=== PATIENT | female | born 1940 | race Caucasian/White ===

== ENCOUNTER 2019-07-19 14:16 | Outpatient (CLI) | payer MEDICARE, SELFPAY ==
--- NOTE | ~2019-07-19 | DEXA_ITS ---
Bone Density Report Name: Shelly Gaston Age: 79 Sex: Female Ethnicity: White Date of : 1940 Indication: osteopenia; monitoring treatment; height loss; cancer; hysterectomy; Referring Provider: RAI, IFEANYI Study: Bone densitometry was performed. Exam Date: July 19, 2019 Accession number: [id number] Bone Density: Region BMD T-score Z-score Classification AP Spine (L1, L2) 1.080 0.9 3.3 Normal Femoral Neck (Left) 0.634 -1.9 0.2 Osteopenia Total Hip (Left) 0.857 -0.7 1.2 Normal World Health Organization criteria for BMD impression classify patients as: Normal (T-score at or above -1.0), Osteopenia (T-score between -1.0 and -2.5), or Osteoporosis (T-score at or below -2.5). 10-year Fracture Risk: FRAX not reported because: Treated for osteoporosis Previous Exams: Region Exam Age BMD T-score BMD Change BMD Change Date g/cm2 vs Baseline vs Previous AP Spine(L1, L2) 07/19/2019 79 1.080 0.9 0.023(2.2%)* 0.023(2.2%)* 04/21/2017 76 1.057 0.7 Total Hip(Left) 07/19/2019 79 0.857 -0.7 0.049(6.0%)* 0.049(6.0%)* 04/21/2017 76 0.808 -1.1 *Denotes significance at 95% confidence level, LSC for AP Spine = 0.022 g/cm2, LSC for Total Hip = 0.027 g/cm2 Clinical Information Provided by Patient: Is being treated for osteoporosis Has used the following medications: Prolia (i.e. denosumab), Vitamin D Has the following medical conditions: Cancer, Hysterectomy Patient maximum height was 64 Menopause Age: 41 No regular weight bearing exercise Drinks caffeinated beverages Onset of menses at age 14 Number of children 4 Impression: The patient has low bone mass, based on the Left Femoral Neck T-score. No significant bone loss was observed. Discussion: PATIENT UNDER TREATMENT WITH NO SIGNIFICANT BMD LOSS SINCE LAST EXAM. In an untreated patient, BMD typically declines with age. A lack of decline or gain is usually a sign that treatment is efficacious and fracture risk is reduced. It is important to ask patients whether they are taking their medications and to encourage continued and appropriate compliance with their osteoporosis therapies to reduce fracture risk. It is also important to review their risk factors and encourage appropriate calcium and vitamin D intakes, exercise, fall prevention and other lifestyle measures. Follow-Up: Consider a repeat BMD and Vertebral Fracture Assessment (VFA) exam in 2 years or sooner if medically necessary, to reassess this patient's status. Reported by: RINKU on 07/19/2019 2:50:00 PM.
== END 2019-07-19 14:17 | disposition home or self-care (01) ==
LOC: ANHIMG 14:29
PROVIDERS: PCP Nurse Practitioner Family; Visit Provider Nurse Practitioner Family
DX: M81.0 Age-related osteoporosis without current pathological fracture (principal); M85.852 Other specified disorders of bone density and structure, left thigh
CPT/HCPCS: 77080

== ENCOUNTER 2019-08-16 13:10 | Outpatient (CLI) | payer MEDICARE, SELFPAY ==
--- NOTE | ~2019-08-16 | MM_ITS ---
EXAMINATION: MM screen LT diag RT w mary HISTORY: Right breast cancer. Previous lumpectomy with radiation therapy. TECHNIQUE: Additional 3-D tomosynthesis images of the right breast were performed and synthetic 2-D i mages were generated. Screening left mammogram. CAD analysis was submitted and interpreted. COMPARISON: Comparison to multiple prior studies sequentially, with oldest reviewed study dated 07/2017. FINDINGS: Breast composed of scattered areas of fibroglandular density. Architectural distortion note d in the upper outer quadrant, consistent with previous lumpectomy. No suspicious masses or calcifica tions are identified to suggest malignancy. IMPRESSION: 1. No mammographic evidence for malignancy in the right breast. 2. Routine yearly screening mammogram and regular clinical breast examination are recommended. BI-RADS Category 2: Benign finding(s). Reviewed, dictated and finalized at location A. IMPRESSION: 1. No mammographic evidence for malignancy in the right breast. 2. Routine yearly screening mammogram and regular clinical breast examination a re recommended. BI-RADS Category 2: Benign finding(s).
== END 2019-08-16 13:11 | disposition home or self-care (01) ==
LOC: ANHIMG 13:14
PROVIDERS: PCP Nurse Practitioner Family; Visit Provider Nurse Practitioner Family
DX: Z12.31 Encounter for screening mammogram for malignant neoplasm of breast (principal); Z85.3 Personal history of malignant neoplasm of breast
CPT/HCPCS: 77063; 77065; 77067

== ENCOUNTER 2019-10-29 13:25 | Emergency (ER) | payer MEDICARE, SELFPAY ==
--- NOTE | ~2019-10-29 | XR_ITS ---
XR nasal bones min 3V 10/29/2019 14:27 Indication: Epistaxis. Procedure: 3 views of the nasal bones Comparison: No prior studies for comparison. Findings: No fracture or traumatic malalignment. There is mild rightward nasal septal mediation. Para nasal sinuses and orbits are unremarkable. Impression: 1: No acute abnormality of the nasal bones. Reviewed, dictated and finalized at location A. Impression: 1: No acute abnormality of the nasal bones.
[2019-10-29 13:28] VITALS: BP 125/79; PULSE 68; RESP 16; TEMP 36.3; O2SAT 100
--- NOTE | 2019-10-29 13:55 | ED.EPISTAXIS ---
HPI - Epistaxis General Chief complaint: Epistaxis Stated complaint: nosebleeds Time Seen by Provider: 10/29/19 13:35 Source: patient and family Mode of arrival: ambulatory Limitations: no limitations History of Present Illness HPI Narrative: Shelly Gaston is a 79 yo femal with a PMH of seasonal allergies, breast cancer, osteoporosis, hypothyroid , who comes to express care with a severe nosebleed that started about half hour prior to arrival at express care however this is the sixth small nosebleed she has had the last 24 hours this morning she had a nosebleed that lasted for about 10 minutes before it stopped. Patient has had history of breast cancer and is on tamoxifen as well as Prolia for osteoporosis but her blood work was checked both in February and in August or September of this year. Presentation she had trickling of blood from her nose but while in triage coughed up a large blood clot from her posterior pharynx. Nose clip was placed Related Data Home Medications Medication Instructions Recorded Confirmed denosumab [Prolia] 60 mg SUBCUT [id number] 10/29/19 10/29/19 levothyroxine [Synthroid] 137 mcg PO DAILY 10/29/19 10/29/19 tamoxifen 20 mg PO DAILY 10/29/19 10/29/19 Allergies Allergy/AdvReac Type Severity Reaction Status Date / Time morphine Allergy Unknown Chest Pain Verified 10/29/19 13:28 Penicillins Allergy Unknown Other Verified 10/29/19 13:28 Sulfa (Sulfonamide Allergy Rash Verified 10/29/19 13:28 Antibiotics) Review of Systems Review of Systems: Narrative: CONSTITUTIONAL: Denies fever, chills, sweats. EYES: Denies visual changes, redness, discharge. ENT: Denies rhinorrhea, congestion, sore throat, otalgia. Nosebleed-20 had been bending over to cut calderon the one that brought her to express care with spontaneous CARDIOVASCULAR: Denies chest pain, palpitations, edema. RESPIRATORY: Denies dyspnea, wheezing, cough GASTROINTESTINAL: Denies abdominal pain, nausea, vomiting, diarrhea. GENITOURINARY: Denies dysuria, hematuria, abnormal discharge SKIN: Denies rash or itching. NEUROLOGIC: Denies numbness, or focal weakness. PSYCHIATRIC: Denies anxiety or depression. [facility] Past Medical History Medical History (Updated 10/29/19 @ 14:12 by Luz Elena Avery CNP) Breast cancer Hypothyroid Osteoporosis Surgical History Surgical History (Updated 10/29/19 @ 14:02 by Luz Elena Avery CNP) H/O arthroplasty H/O: hysterectomy History of appendectomy History of cholecystectomy Family History Family History Mother Patient's mother is , Onset Age: 93 Grandparent Cerebrovascular accident, Onset Age: 89 Family history of malignant neoplasm Family history of chronic obstructive pulmonary disease, Onset Age: 90 Social History Social History Smoking status: Former smoker Smoking end date: 02/16/99 Alcohol intake: current Comments At time of signature, I agree with nursing past medical, surgical, social and family history. There is no relevant family history pertinent to the presenting complaint. Exam Narrative: Exam Narrative: GENERAL: This is a well-nourished, well-developed patient, in mild distress. Patient appears healthy able to ambulate without difficulty, not pale HEAD: normocephalic, atraumatic. EYES: Sclera clear/white. Vision is grossly intact. EARS: External ears normal, . Hearing grossly intact. NOSE: External nose normal with red blood draining from nose, exam appears to be left nostril over right nostril although patient states was both this morning THROAT: Mucous membranes moist, posterior pharynx patent NECK: Neck supple, CARDIOVASCULAR: Regular rate and rhythm without murmurs, gallops, or rubs. RESPIRATORY: Clear to auscultation. Breath sounds equal bilaterally. No wheezes, rales, or rhonchi. GASTROINTESTINAL: Abdomen soft, SKIN: warm, intact with no suspicious lesions or rash, good textu
[2019-10-29 13:58] VITALS: BP 161/61
[2019-10-29 14:10] VITALS: BP 133/75
== END 2019-10-29 14:40 | disposition home or self-care (01) ==
PROVIDERS: Emergency Provider Nurse Practitioner; PCP Nurse Practitioner Family
DX: R04.0 Epistaxis (principal); Z87.891 Personal history of nicotine dependence; E03.9 Hypothyroidism, unspecified; M81.0 Age-related osteoporosis without current pathological fracture; Z85.3 Personal history of malignant neoplasm of breast
CPT/HCPCS: 30901; 70160; 99213; G0463

== ENCOUNTER 2019-10-29 19:52 | Emergency (ER) | payer MEDICARE, SELFPAY ==
[2019-10-29 19:55] VITALS: BP 164/78; PULSE 66; RESP 20; TEMP 36.2; O2SAT 98
--- NOTE | 2019-10-29 20:36 | ED.EPISTAXIS ---
HPI - Epistaxis General Chief complaint: Epistaxis Stated complaint: nose swelling and pain, Time Seen by Provider: 10/29/19 20:02 Source: patient Mode of arrival: ambulatory Limitations: no limitations History of Present Illness HPI Narrative: This is a 79 year old female that presents to the ER for nasal pain. Reports she has had intermittent nosebleeds over the last week. Reports today she had one she was unable to control so she went to the urgent care. Reports they placed a Rhino Rocket. Reports it is uncomfortable. The tape is covering her right nare as well. Denies fever or continued bleeding. Related Data Home Medications Medication Instructions Recorded Confirmed denosumab [Prolia] 60 mg SUBCUT [id number] 10/29/19 10/29/19 levothyroxine [Synthroid] 137 mcg PO DAILY 10/29/19 10/29/19 tamoxifen 20 mg PO DAILY 10/29/19 10/29/19 Allergies Allergy/AdvReac Type Severity Reaction Status Date / Time morphine Allergy Unknown Chest Pain Verified 10/29/19 13:28 Penicillins Allergy Unknown Other Verified 10/29/19 13:28 Sulfa (Sulfonamide Allergy Rash Verified 10/29/19 13:28 Antibiotics) Review of Systems Review of Systems: Narrative: CONSTITUTIONAL: Denies fever ENT: Denies current epistaxis All systems reviewed & are unremarkable except as noted in HPI and below PMFSH Past Medical History Medical History (Updated 10/29/19 @ 20:45 by Julissa Peters PA-C) Breast cancer Hypothyroid Osteoporosis Surgical History Surgical History (Updated 10/29/19 @ 14:02 by Luz Elena Avery CNP) H/O arthroplasty H/O: hysterectomy History of appendectomy History of cholecystectomy Social History Social History Smoking status: Former smoker Smoking end date: 02/16/99 Alcohol intake: current Exam Narrative: Exam Narrative: GENERAL: Well-appearing, well-nourished, and in no acute distress. HEAD: Normocephalic, atraumatic. EYES: EOMI. ENT: No active epistaxis. Rhino rocket in place in the left nare. Mucous membranes moist. No bleeding noted in the oropharynx NECK: Supple. No adenopathy or masses. EXTREMITIES: Normal range of motion. No edema. SKIN: Warm, dry, no rash. NEURO: No focal deficits. Alert and oriented x3. PSYCH: Normal mood and affect Course Vital Signs Vital signs: Vital Signs Temperature 97.2 F L 10/29/19 19:55 Pulse Rate 66 10/29/19 19:55 Respiratory Rate 20 10/29/19 19:55 Blood Pressure 164/78 H 10/29/19 19:55 Pulse Oximetry 98 10/29/19 19:55 Temperature 97.2 F L 10/29/19 19:55 Pulse Rate 66 10/29/19 19:55 Respiratory Rate 20 10/29/19 19:55 Blood Pressure 164/78 H 10/29/19 19:55 Pulse Oximetry 98 10/29/19 19:55 MDM - Epistaxis MDM Narrative Medical decision making narrative: Patient presents the emergency department for discomfort of Rhino Rocket that had been placed at urgent care. I removed 1 cc of air from the Rhino Rocket with improvement in her pain. I also fixed the taping so it was not covering her other nare. Patient will be started on oral antibiotics. She reports she does not need any pain medication for home. Spoke with Dr. Gil about patient and work-up will follow-up in clinic. Patient is stable and felt appropriate further outpatient evaluation. She was given warnings to return to the ER Critical Care Time Critical Care Time Critical Care Time: No Discharge Plan Discharge Clinical Impression: Epistaxis Patient Disposition: Home, Self-Care Condition: Stable Instructions: Antibiotic Form, Nosebleed (ED) Additional Instructions: Return to the emergency department if you experience fever, nosebleed you are unable to control, or any other symptoms that are concerning to you Take antibiotics as prescribed. Tylenol or ibuprofen as needed for pain Follow-up with ENT. Call first thing Thursday morning to make an appointment Prescriptions: New clindamycin HCl 150 mg capsule 450 mg PO Q8H 3 Days Qty: 27 R
[2019-10-29] MEDS: CLINDAMYCIN HCL 150 MG CAP 450 MG PO (21:00)
[2019-10-29 21:04] VITALS: PULSE 60; RESP 14
== END 2019-10-29 21:05 | disposition home or self-care (01) ==
PROVIDERS: Emergency Provider Emergency Medicine; PCP Nurse Practitioner Family
DX: R04.0 Epistaxis (principal); Z87.891 Personal history of nicotine dependence; E03.9 Hypothyroidism, unspecified; M81.0 Age-related osteoporosis without current pathological fracture; Z85.3 Personal history of malignant neoplasm of breast
CPT/HCPCS: 70160; 99283; A9270

== ENCOUNTER 2020-08-07 16:25 | Outpatient (CLI) | payer MEDICARE, SELFPAY ==
--- NOTE | ~2020-08-07 | MM_ITS ---
EXAMINATION: MM screening bean BI w mary HISTORY: Screening mammogram TECHNIQUE: Craniocaudal and mediolateral oblique 3-D tomosynthesis images were obtained and synthetic 2-D images were generated. CAD analysis was submitted and interpreted. COMPARISON: 08/16/2019 left screening and right diagnostic mammogram 06/15/2018 diagnostic right digital mammogram 05/31/2018 bilateral digital screening mammogram 07/02/2017 diagnostic left digital mammogram 05/05/2017 diagnostic left mammogram and limited left breast ultrasound 04/21/2017 bilateral digital screening mammogram BREAST PARENCHYMAL COMPOSITION: There are scattered areas of fibroglandular density. FINDINGS: Stable mild fibroglandular asymmetry since 04/21/2017. There is no evidence of suspicious mas s, calcification, or architectural distortion to suggest malignancy in either breast. There has been no suspicious interval change. IMPRESSION: 1. No mammographic evidence of malignancy. 2. Recommend routine screening mammography in one year. BI-RADS Category 2: Benign finding(s). Reviewed, dictated and finalized at location A.
== END 2020-08-07 16:26 | disposition home or self-care (01) ==
LOC: ANHIMG 16:30
PROVIDERS: PCP Nurse Practitioner Family; Visit Provider Nurse Practitioner Family
DX: Z12.31 Encounter for screening mammogram for malignant neoplasm of breast (principal)
CPT/HCPCS: 77063; 77067

== ENCOUNTER 2020-09-25 11:54 | Outpatient (CLI) | payer MEDICARE, SELFPAY ==
[2020-09-25 12:15] LABS: Basophils Percent Auto 0.4 % (0.2-1.2); Eosinophils Absolute Auto 0.3 K/mm3 (0-0.3); Eosinophils Percent Auto 3.8 % (0-4.4); Hematocrit 41.6 % (37.0-47.0); Hemoglobin 13.4 g/dL (12.0-15.0); Immature Granulocyte Absolute 0.01 K/mm3 (0.00-0.031); Immature Granulocyte Percent A 0.1 % (0-0.5); Lymphocytes Absolute Auto 2.21 K/mm3 (0.9-3.2); Lymphocytes Percent Auto 30.8 % (18.3-44.2); Mean Corpuscular HGB Conc 32.2 g/dl (32-36); Mean Corpuscular Hemoglobin 28.8 pg (26-34); Mean Corpuscular Volume 89.5 fl (80-100); Mean Platelet Volume 10.5 fl (7.4-10.4); Monocytes Absolute Auto 0.6 K/mm3 (0.1-0.6); Monocytes Percent Auto 7.7 % (2.6-8.5); Neutrophils Absolute Auto 4.1 K/mm3 (1.3-6.7); Neutrophils Percent Auto 57.2 % (45.5-73.1); Platelet Count Result 261 k/mm3 (150-375); Red Blood Count 4.65 M/mm3 (4.2-5.4); Red Cell Distribution Width 12.8 % (11.5-14.5); White Blood Count 7.2 K/mm3 (4.5-10.0)
[2020-09-25 16:38] LABS: Alanine Aminotransferase 13 U/L (4-35); Albumin Level 4.2 g/dL (3.5-5.1); Alkaline Phosphatase 40 U/L (38-126); Anion Gap 6 mmol/L (8-16); Aspartate Amino Transferase 25 U/L (14-36); Bilirubin,Total 0.7 mg/dL (0.2-1.3); Blood Urea Nitrogen 14 mg/dL (7-17); Carbon Dioxide 26 mmol/L (22-30); Chloride 105 mmol/L (98-107); Estimated Glomerular Filt Rate > 60; Glucose 85 mg/dL (65-110); Potassium 4.7 mmol/L (3.4-5.0); Sodium 137 mmol/L (137-145)
[2020-09-28 06:32] LABS: CA 15-3 10 U/mL (<32)
== END 2020-09-25 11:55 | disposition home or self-care (01) ==
LOC: ANHLAB 12:03
PROVIDERS: PCP Nurse Practitioner Family; Visit Provider Internal Medicine Hematology & Oncology
DX: C50.911 Malignant neoplasm of unspecified site of right female breast (principal); Z17.0 Estrogen receptor positive status [ER+]
CPT/HCPCS: 36415; 80053; 85025; 86300

== ENCOUNTER 2021-04-19 08:16 | Outpatient (CLI) | payer MEDICARE, SELFPAY ==
[2021-04-19 09:03] LABS: Basophils Percent Auto 0.6 % (0.2-1.2); Eosinophils Absolute Auto 0.3 K/mm3 (0-0.3); Eosinophils Percent Auto 5.4 % (0-4.4); Hematocrit 42.1 % (37.0-47.0); Immature Granulocyte Absolute 0.01 K/mm3 (0.00-0.031); Immature Granulocyte Percent A 0.2 % (0-0.5); Lymphocytes Absolute Auto 1.71 K/mm3 (0.9-3.2); Lymphocytes Percent Auto 27.8 % (18.3-44.2); Mean Corpuscular HGB Conc 30.9 g/dl (32-36); Mean Corpuscular Hemoglobin 28.9 pg (26-34); Mean Corpuscular Volume 93.6 fl (80-100); Mean Platelet Volume 10.7 fl (7.4-10.4); Monocytes Absolute Auto 0.5 K/mm3 (0.1-0.6); Monocytes Percent Auto 8.1 % (2.6-8.5); Neutrophils Absolute Auto 3.6 K/mm3 (1.3-6.7); Neutrophils Percent Auto 57.9 % (45.5-73.1); Platelet Count Result 244 k/mm3 (150-375); Red Cell Distribution Width 13.2 % (11.5-14.5); White Blood Count 6.2 K/mm3 (4.5-10.0)
[2021-04-19 13:46] LABS: Alanine Aminotransferase 11 U/L (4-35); Albumin Level 4.1 g/dL (3.5-5.1); Alkaline Phosphatase 42 U/L (38-126); Anion Gap 3 mmol/L (8-16); Aspartate Amino Transferase 24 U/L (14-36); Bilirubin,Total 0.6 mg/dL (0.2-1.3); Blood Urea Nitrogen 13 mg/dL (7-17); Carbon Dioxide 30 mmol/L (22-30); Chloride 103 mmol/L (98-107); Estimated Glomerular Filt Rate > 60; Glucose 92 mg/dL (65-110); Potassium 4.5 mmol/L (3.4-5.0); Sodium 136 mmol/L (137-145)
[2021-04-23 20:23] LABS: CA 15-3 12 U/mL (<32)
== END 2021-04-19 08:17 | disposition home or self-care (01) ==
LOC: ANHLAB 08:19
PROVIDERS: PCP Nurse Practitioner Family; Visit Provider Internal Medicine Hematology & Oncology
DX: C50.911 Malignant neoplasm of unspecified site of right female breast (principal); Z17.0 Estrogen receptor positive status [ER+]
CPT/HCPCS: 36415; 80053; 85025; 86300

== ENCOUNTER 2021-09-04 12:36 | Outpatient (CLI) | payer MEDICARE, SELFPAY ==
[2021-09-04 12:55] LABS: Basophils Percent Auto 0.6 % (0.2-1.2); Eosinophils Absolute Auto 0.4 K/mm3 (0-0.3); Eosinophils Percent Auto 5.3 % (0-4.4); Hematocrit 40.2 % (37.0-47.0); Hemoglobin 12.8 g/dL (12.0-15.0); Immature Granulocyte Absolute 0.01 K/mm3 (0.00-0.031); Immature Granulocyte Percent A 0.1 % (0-0.5); Lymphocytes Percent Auto 33.2 % (18.3-44.2); Mean Corpuscular HGB Conc 31.8 g/dl (32-36); Mean Corpuscular Hemoglobin 28.8 pg (26-34); Mean Corpuscular Volume 90.5 fl (80-100); Mean Platelet Volume 10.4 fl (7.4-10.4); Monocytes Absolute Auto 0.7 K/mm3 (0.1-0.6); Monocytes Percent Auto 9.4 % (2.6-8.5); Neutrophils Absolute Auto 3.6 K/mm3 (1.3-6.7); Neutrophils Percent Auto 51.4 % (45.5-73.1); Platelet Count Result 240 k/mm3 (150-375); Red Blood Count 4.44 M/mm3 (4.2-5.4); Red Cell Distribution Width 12.9 % (11.5-14.5); White Blood Count 6.9 K/mm3 (4.5-10.0)
[2021-09-04 12:58] LABS: Blood Urea Nitrogen 15 mg/dL (8-26); Carbon Dioxide 26 mmol/L (22-30); Chloride 102 mmol/L (98-109); Estimated Glomerular Filt Rate 60; Glucose 91 mg/dL (70-105); Ionized Calcium (POC) 1.22 mmol/L (1.11-1.31); Potassium 4.5 mmol/L (3.5-4.9); Sodium 139 mmol/L (138-146)
[2021-09-04 13:27] LABS: Alanine Aminotransferase 11 U/L (6-35); Alkaline Phosphatase 45 U/L (38-126); Anion Gap 5 mmol/L (8-16); Aspartate Amino Transferase 26 U/L (14-36); Bilirubin,Total 0.6 mg/dL (0.2-1.3); Blood Urea Nitrogen 15 mg/dL (7-17); Calcium 9.2 mg/dL (8.4-10.2); Carbon Dioxide 28 mmol/L (22-30); Chloride 104 mmol/L (98-107); Estimated Glomerular Filt Rate 60; Glucose 91 mg/dL (65-110); Potassium 4.6 mmol/L (3.4-5.0); Sodium 137 mmol/L (137-145)
== END 2021-09-04 12:37 | disposition home or self-care (01) ==
LOC: ANHLAB 12:38
PROVIDERS: PCP Nurse Practitioner Family; Visit Provider Internal Medicine Hematology & Oncology
DX: C50.911 Malignant neoplasm of unspecified site of right female breast (principal); Z17.0 Estrogen receptor positive status [ER+]
CPT/HCPCS: 36415; 80047; 80053; 85025

== ENCOUNTER 2021-09-20 09:27 | Outpatient (CLI) | payer MEDICARE, SELFPAY ==
--- NOTE | ~2021-09-20 | MM_ITS ---
EXAMINATION: MM screening bean BI w mary HISTORY: Screening TECHNIQUE: Craniocaudal and mediolateral oblique 3-D tomosynthesis images were obtained and synthetic 2-D images were generated. CAD analysis was submitted and interpreted. COMPARISON: Comparison to multiple prior studies sequentially, with oldest reviewed study dated 05/31. BREAST PARENCHYMAL COMPOSITION: There are scattered areas of fibroglandular density. FINDINGS: There is no evidence of suspicious mass, calcification, or architectural distortion to sugg est malignancy in either breast. There has been no suspicious interval change. IMPRESSION: 1. No mammographic evidence of malignancy. 2. Recommend routine screening mammography in one year. BI-RADS Category 1: Negative Reviewed, dictated and finalized at location A.
== END 2021-09-20 09:28 | disposition home or self-care (01) ==
LOC: ANHIMG 09:28
PROVIDERS: PCP Nurse Practitioner Family; Visit Provider Internal Medicine Hematology & Oncology
DX: Z12.31 Encounter for screening mammogram for malignant neoplasm of breast (principal)
CPT/HCPCS: 77063; 77067

== ENCOUNTER 2022-02-21 08:49 | Outpatient (CLI) | payer MEDICARE, SELFPAY ==
[2022-02-21 09:04] LABS: Basophils Absolute Auto 0.1 K/mm3 (0.0-0.1); Basophils Percent Auto 0.7 % (0.2-1.2); Eosinophils Absolute Auto 0.3 K/mm3 (0-0.3); Eosinophils Percent Auto 4.2 % (0-4.4); Hematocrit 42.1 % (37.0-47.0); Hemoglobin 13.6 g/dL (12.0-15.0); Immature Granulocyte Absolute 0.02 K/mm3 (0.00-0.031); Immature Granulocyte Percent A 0.3 % (0-0.5); Lymphocytes Absolute Auto 1.96 K/mm3 (0.9-3.2); Lymphocytes Percent Auto 27.6 % (18.3-44.2); Mean Corpuscular HGB Conc 32.3 g/dl (32-36); Mean Corpuscular Hemoglobin 28.9 pg (26-34); Mean Corpuscular Volume 89.6 fl (80-100); Mean Platelet Volume 10.2 fl (7.4-10.4); Monocytes Absolute Auto 0.7 K/mm3 (0.1-0.6); Monocytes Percent Auto 9.1 % (2.6-8.5); Neutrophils Absolute Auto 4.1 K/mm3 (1.3-6.7); Neutrophils Percent Auto 58.1 % (45.5-73.1); Platelet Count Result 260 k/mm3 (150-375); Red Cell Distribution Width 13.2 % (11.5-14.5); White Blood Count 7.1 K/mm3 (4.5-10.0)
[2022-02-21 10:06] LABS: Alanine Aminotransferase 15 U/L (6-35); Albumin Level 4.2 g/dL (3.5-5.1); Alkaline Phosphatase 46 U/L (38-126); Anion Gap 5 mmol/L (8-16); Aspartate Amino Transferase 23 U/L (14-36); Bilirubin,Total 0.6 mg/dL (0.2-1.3); Blood Urea Nitrogen 17 mg/dL (7-17); Carbon Dioxide 29 mmol/L (22-30); Chloride 103 mmol/L (98-107); Estimated Glomerular Filt Rate 53; Glucose 95 mg/dL (65-110); Potassium 4.7 mmol/L (3.4-5.0); Sodium 137 mmol/L (137-145)
[2022-02-26 15:38] LABS: CA 15-3 14 U/mL (<32)
== END 2022-02-21 08:50 | disposition home or self-care (01) ==
LOC: ANHLAB 08:51
PROVIDERS: PCP Nurse Practitioner Family; Visit Provider Internal Medicine Hematology & Oncology
DX: C50.911 Malignant neoplasm of unspecified site of right female breast (principal); Z17.0 Estrogen receptor positive status [ER+]
CPT/HCPCS: 36415; 80053; 85025; 86300

== ENCOUNTER 2022-10-06 09:18 | Outpatient (CLI) | payer MEDICARE, SELFPAY ==
--- NOTE | ~2022-10-06 | MM_ITS ---
EXAMINATION: MM screening bean BI w mary HISTORY: Screening mammogram TECHNIQUE: Craniocaudal and mediolateral oblique 3-D tomosynthesis images were obtained and synthetic 2-D images were generated. CAD analysis was submitted and interpreted. COMPARISON: 09/20/2021, 08/07/2020 bilateral screening mammogram examinations BREAST PARENCHYMAL COMPOSITION: There are scattered areas of fibroglandular density. FINDINGS: There is no evidence of suspicious mass, calcification, or architectural distortion to sugg est malignancy in either breast. There has been no suspicious interval change. IMPRESSION: 1. No mammographic evidence of malignancy. 2. Recommend routine screening mammography in one year. BI-RADS Category 1: Negative Reviewed, dictated and finalized at location A.
== END 2022-10-06 09:19 | disposition home or self-care (01) ==
PROVIDERS: PCP Nurse Practitioner Family; Visit Provider Internal Medicine Hematology & Oncology
DX: Z12.31 Encounter for screening mammogram for malignant neoplasm of breast (principal)
CPT/HCPCS: 36415; 77063; 77067; 80053; 85025; 86300

== ENCOUNTER 2022-10-06 09:54 | Outpatient (CLI) | payer MEDICARE, SELFPAY ==
[2022-10-06 10:15] LABS: Basophils Percent Auto 0.4 % (0.2-1.2); Eosinophils Absolute Auto 0.3 K/mm3 (0-0.3); Hematocrit 44.3 % (37.0-47.0); Hemoglobin 14.4 g/dL (12.0-15.0); Immature Granulocyte Absolute 0.01 K/mm3 (0.00-0.031); Immature Granulocyte Percent A 0.1 % (0-0.5); Lymphocytes Absolute Auto 2.11 K/mm3 (0.9-3.2); Lymphocytes Percent Auto 31.6 % (18.3-44.2); Mean Corpuscular HGB Conc 32.5 g/dl (32-36); Mean Corpuscular Hemoglobin 29.3 pg (26-34); Mean Platelet Volume 10.2 fl (7.4-10.4); Monocytes Absolute Auto 0.5 K/mm3 (0.1-0.6); Monocytes Percent Auto 8.1 % (2.6-8.5); Neutrophils Absolute Auto 3.7 K/mm3 (1.3-6.7); Neutrophils Percent Auto 55.8 % (45.5-73.1); Platelet Count Result 274 k/mm3 (150-375); Red Blood Count 4.92 M/mm3 (4.2-5.4); Red Cell Distribution Width 13.1 % (11.5-14.5); White Blood Count 6.7 K/mm3 (4.5-10.0)
[2022-10-06 11:38] LABS: Anion Gap 4 mmol/L (8-16); Blood Urea Nitrogen 11 mg/dL (7-17); Carbon Dioxide 30 mmol/L (22-30); Chloride 103 mmol/L (98-107); Potassium 4.4 mmol/L (3.4-5.0); Sodium 137 mmol/L (137-145)
[2022-10-06 11:39] LABS: Alanine Aminotransferase 16 U/L (6-35); Albumin Level 4.3 g/dL (3.5-5.1); Alkaline Phosphatase 45 U/L (38-126); Aspartate Amino Transferase 26 U/L (14-36); Bilirubin,Total 0.6 mg/dL (0.2-1.3); Calcium 9.3 mg/dL (8.4-10.2); Estimated Glomerular Filt Rate 60; Glucose 99 mg/dL (65-110)
[2022-10-09 05:22] LABS: CA 15-3 12 U/mL (<32)
== END 2022-10-06 09:55 | disposition home or self-care (01) ==
LOC: ANHLAB 09:56
PROVIDERS: PCP Nurse Practitioner Family; Visit Provider Internal Medicine Hematology & Oncology
DX: C50.911 Malignant neoplasm of unspecified site of right female breast (principal); Z17.0 Estrogen receptor positive status [ER+]
CPT/HCPCS: 36415; 80053; 85025; 86300

== ENCOUNTER 2023-01-22 09:15 | Outpatient (CLI) | payer MEDICARE, SELFPAY ==
[2023-01-22 09:37] LABS: Basophils Percent Auto 0.5 % (0.2-1.2); Eosinophils Absolute Auto 0.4 K/mm3 (0-0.3); Eosinophils Percent Auto 4.8 % (0-4.4); Hematocrit 40.2 % (37.0-47.0); Immature Granulocyte Absolute 0.05 K/mm3 (0.00-0.031); Immature Granulocyte Percent A 0.6 % (0-0.5); Lymphocytes Absolute Auto 1.79 K/mm3 (0.9-3.2); Lymphocytes Percent Auto 21.3 % (18.3-44.2); Mean Corpuscular HGB Conc 32.3 g/dl (32-36); Mean Corpuscular Hemoglobin 29.1 pg (26-34); Mean Corpuscular Volume 90.1 fl (80-100); Mean Platelet Volume 9.9 fl (7.4-10.4); Monocytes Absolute Auto 0.6 K/mm3 (0.1-0.6); Monocytes Percent Auto 7.5 % (2.6-8.5); Neutrophils Absolute Auto 5.5 K/mm3 (1.3-6.7); Neutrophils Percent Auto 65.3 % (45.5-73.1); Platelet Count Result 311 k/mm3 (150-375); Red Blood Count 4.46 M/mm3 (4.2-5.4); Red Cell Distribution Width 13.4 % (11.5-14.5); White Blood Count 8.4 K/mm3 (4.5-10.0)
[2023-01-22 10:36] LABS: Alanine Aminotransferase 12 U/L (6-35); Alkaline Phosphatase 50 U/L (38-126); Anion Gap 5 mmol/L (8-16); Aspartate Amino Transferase 28 U/L (14-36); Bilirubin,Total 0.6 mg/dL (0.2-1.3); Blood Urea Nitrogen 17 mg/dL (7-17); Calcium 9.3 mg/dL (8.4-10.2); Carbon Dioxide 29 mmol/L (22-30); Chloride 105 mmol/L (98-107); Estimated Glomerular Filt Rate 60; Glucose 87 mg/dL (65-110); Potassium 4.4 mmol/L (3.4-5.0); Sodium 139 mmol/L (137-145)
[2023-01-22 11:42] LABS: Folic Acid 17.7 ng/mL (2.76->20)
[2023-01-22 11:57] LABS: Free T4 Free Thyroxine 1.86 ng/mL (0.78-2.19)
== END 2023-01-22 09:16 | disposition home or self-care (01) ==
LOC: ANHLAB 09:19
PROVIDERS: PCP Nurse Practitioner Family; Visit Provider Internal Medicine Hematology & Oncology
DX: E03.4 Atrophy of thyroid (acquired) (principal); Z86.000 Personal history of in-situ neoplasm of breast; E53.8 Deficiency of other specified B group vitamins
CPT/HCPCS: 36415; 80053; 82746; 84439; 84443; 85025

== ENCOUNTER 2023-05-06 08:32 | Outpatient (CLI) | payer MEDICARE, SELFPAY ==
[2023-05-06 09:04] LABS: Basophils Absolute Auto 0.1 K/mm3 (0.0-0.1); Basophils Percent Auto 0.6 % (0.2-1.2); Eosinophils Absolute Auto 0.4 K/mm3 (0-0.3); Eosinophils Percent Auto 4.8 % (0-4.4); Hematocrit 43.6 % (37.0-47.0); Hemoglobin 13.9 g/dL (12.0-15.0); Immature Granulocyte Absolute 0.02 K/mm3 (0.00-0.031); Immature Granulocyte Percent A 0.2 % (0-0.5); Lymphocytes Percent Auto 19.9 % (18.3-44.2); Mean Corpuscular HGB Conc 31.9 g/dl (32-36); Mean Corpuscular Hemoglobin 28.7 pg (26-34); Mean Corpuscular Volume 90.1 fl (80-100); Mean Platelet Volume 9.9 fl (7.4-10.4); Monocytes Absolute Auto 0.8 K/mm3 (0.1-0.6); Monocytes Percent Auto 8.6 % (2.6-8.5); Neutrophils Percent Auto 65.9 % (45.5-73.1); Platelet Count Result 314 k/mm3 (150-375); Red Blood Count 4.84 M/mm3 (4.2-5.4); Red Cell Distribution Width 13.3 % (11.5-14.5); White Blood Count 9.1 K/mm3 (4.5-10.0)
[2023-05-06 10:41] LABS: Alanine Aminotransferase 13 U/L (6-35); Albumin Level 4.2 g/dL (3.5-5.1); Alkaline Phosphatase 55 U/L (38-126); Anion Gap 4 mmol/L (8-16); Aspartate Amino Transferase 26 U/L (14-36); Bilirubin,Total 0.6 mg/dL (0.2-1.3); Blood Urea Nitrogen 16 mg/dL (7-17); Calcium 9.5 mg/dL (8.4-10.2); Carbon Dioxide 30 mmol/L (22-30); Chloride 104 mmol/L (98-107); Estimated Glomerular Filt Rate 60; Glucose 95 mg/dL (65-110); Potassium 4.5 mmol/L (3.4-5.0); Sodium 138 mmol/L (137-145)
== END 2023-05-06 08:33 | disposition home or self-care (01) ==
LOC: ANHLAB 08:47
PROVIDERS: PCP Nurse Practitioner Family; Visit Provider Internal Medicine Hematology & Oncology
DX: C50.911 Malignant neoplasm of unspecified site of right female breast (principal); Z17.0 Estrogen receptor positive status [ER+]
CPT/HCPCS: 36415; 80053; 85025

== ENCOUNTER 2023-07-24 08:04 | Outpatient (CLI) | payer MEDICARE, SELFPAY ==
[2023-07-24 08:35] LABS: Basophils Percent Auto 0.6 % (0.2-1.2); Eosinophils Absolute Auto 0.4 K/mm3 (0-0.3); Eosinophils Percent Auto 4.9 % (0-4.4); Hematocrit 43.1 % (37.0-47.0); Hemoglobin 13.8 g/dL (12.0-15.0); Immature Granulocyte Absolute 0.02 K/mm3 (0.00-0.031); Immature Granulocyte Percent A 0.3 % (0-0.5); Lymphocytes Absolute Auto 1.73 K/mm3 (0.9-3.2); Lymphocytes Percent Auto 24.2 % (18.3-44.2); Mean Corpuscular Hemoglobin 28.8 pg (26-34); Mean Corpuscular Volume 89.8 fl (80-100); Mean Platelet Volume 10.2 fl (7.4-10.4); Monocytes Absolute Auto 0.6 K/mm3 (0.1-0.6); Monocytes Percent Auto 8.8 % (2.6-8.5); Neutrophils Absolute Auto 4.4 K/mm3 (1.3-6.7); Neutrophils Percent Auto 61.2 % (45.5-73.1); Platelet Count Result 280 k/mm3 (150-375); Red Cell Distribution Width 13.3 % (11.5-14.5); White Blood Count 7.2 K/mm3 (4.5-10.0)
[2023-07-24 09:00] LABS: Alanine Aminotransferase 11 U/L (6-35); Albumin Level 4.2 g/dL (3.5-5.1); Alkaline Phosphatase 49 U/L (38-126); Anion Gap 6 mmol/L (4-12); Aspartate Amino Transferase 30 U/L (14-36); Bilirubin,Total 0.9 mg/dL (0.2-1.3); Blood Urea Nitrogen 16 mg/dL (7-17); Calcium 9.1 mg/dL (8.4-10.2); Carbon Dioxide 26 mmol/L (22-30); Chloride 105 mmol/L (98-107); Estimated Glomerular Filt Rate > 60; Glucose 99 mg/dL (65-110); Potassium 4.4 mmol/L (3.4-5.0); Sodium 137 mmol/L (137-145)
== END 2023-07-24 08:05 | disposition home or self-care (01) ==
PROVIDERS: PCP Nurse Practitioner Family; Visit Provider Internal Medicine Hematology & Oncology
DX: C50.911 Malignant neoplasm of unspecified site of right female breast (principal); Z17.0 Estrogen receptor positive status [ER+]; E03.9 Hypothyroidism, unspecified
CPT/HCPCS: 36415; 80053; 84443; 85025

== ENCOUNTER 2023-10-08 14:48 | Outpatient (CLI) | payer MEDICARE, SELFPAY ==
--- NOTE | ~2023-10-08 | MM_ITS ---
EXAMINATION: MM screening [facility] BI w mary HISTORY: Screening TECHNIQUE: Craniocaudal and mediolateral oblique 3-D tomosynthesis images were obtained and synthetic 2-D images were generated. CAD analysis was submitted and interpreted. COMPARISON: Comparison to multiple prior studies sequentially, with oldest reviewed study dated 05/31. BREAST PARENCHYMAL COMPOSITION: Not dense: There are scattered areas of fibroglandular density. FINDINGS: There is no evidence of suspicious mass, calcification, or architectural distortion to sugg est malignancy in either breast. There has been no suspicious interval change. IMPRESSION: 1. No mammographic evidence of malignancy. 2. Recommend routine screening mammography in one year. BI-RADS Category 1: Negative Reviewed, dictated and finalized at location B.
== END 2023-10-08 14:49 | disposition home or self-care (01) ==
LOC: ANHIMG 14:49
PROVIDERS: PCP Nurse Practitioner Family; Visit Provider Internal Medicine Hematology & Oncology
DX: Z12.31 Encounter for screening mammogram for malignant neoplasm of breast (principal)
CPT/HCPCS: 77063; 77067

== ENCOUNTER 2023-10-13 08:19 | Outpatient (CLI) | payer MEDICARE, SELFPAY ==
[2023-10-13 08:33] LABS: Basophils Percent Auto 0.5 % (0.2-1.2); Eosinophils Absolute Auto 0.3 K/mm3 (0-0.3); Eosinophils Percent Auto 3.9 % (0-4.4); Hematocrit 42.4 % (37.0-47.0); Hemoglobin 13.4 g/dL (12.0-15.0); Immature Granulocyte Absolute 0.01 K/mm3 (0.00-0.031); Immature Granulocyte Percent A 0.1 % (0-0.5); Lymphocytes Absolute Auto 2.02 K/mm3 (0.9-3.2); Lymphocytes Percent Auto 26.1 % (18.3-44.2); Mean Corpuscular HGB Conc 31.6 g/dl (32-36); Mean Corpuscular Hemoglobin 28.6 pg (26-34); Mean Corpuscular Volume 90.6 fl (80-100); Mean Platelet Volume 10.3 fl (7.4-10.4); Monocytes Absolute Auto 0.7 K/mm3 (0.1-0.6); Monocytes Percent Auto 8.5 % (2.6-8.5); Neutrophils Absolute Auto 4.7 K/mm3 (1.3-6.7); Neutrophils Percent Auto 60.9 % (45.5-73.1); Platelet Count Result 263 k/mm3 (150-375); Red Blood Count 4.68 M/mm3 (4.2-5.4); Red Cell Distribution Width 13.4 % (11.5-14.5); White Blood Count 7.7 K/mm3 (4.5-10.0)
[2023-10-13 10:42] LABS: Alanine Aminotransferase 11 U/L (6-35); Albumin Level 4.1 g/dL (3.5-5.1); Alkaline Phosphatase 43 U/L (38-126); Anion Gap 9 mmol/L (4-12); Aspartate Amino Transferase 26 U/L (14-36); Bilirubin,Total 0.7 mg/dL (0.2-1.3); Blood Urea Nitrogen 14 mg/dL (7-17); Calcium 9.1 mg/dL (8.4-10.2); Carbon Dioxide 28 mmol/L (22-30); Chloride 101 mmol/L (98-107); Estimated Glomerular Filt Rate 60; Glucose 97 mg/dL (65-110); Potassium 4.5 mmol/L (3.4-5.0); Sodium 138 mmol/L (137-145)
== END 2023-10-13 08:20 | disposition home or self-care (01) ==
PROVIDERS: PCP Nurse Practitioner Family; Visit Provider Internal Medicine Hematology & Oncology
DX: C50.911 Malignant neoplasm of unspecified site of right female breast (principal); Z17.0 Estrogen receptor positive status [ER+]
CPT/HCPCS: 36415; 80053; 85025

== ENCOUNTER 2024-02-11 13:13 | Outpatient (CLI) | payer MEDICARE, SELFPAY ==
--- NOTE | ~2024-02-11 | DEXA_ITS ---
Bone Density Report Name: CHEL FRIEND Age: 83 Sex: Female Ethnicity: White Date of : 1940 Indication: postmenopausal; screening for osteoporosis; height loss; prior fracture; cancer; hysterectomy; Referring Provider: ELIZABETH JEROME Study: Bone densitometry was performed. Exam Date: February 11, 2024 Accession number: [id number] Bone Density: Region BMD T-score Z-score Classification AP Spine(L1-L4) 1.099 0.5 3.2 Normal Femoral Neck (Left) 0.626 -2.0 0.4 Osteopenia Total Hip (Left) 0.880 -0.5 1.6 Normal World Health Organization criteria for BMD impression classify patients as: Normal (T-score at or above -1.0), Osteopenia (T-score between -1.0 and -2.5), or Osteoporosis (T-score at or below -2.5). 10-year Fracture Risk: FRAX not reported because: Prior hip or vertebral fracture Previous Exams: Region Exam Age BMD T-score BMD Change BMD Change Date g/cm2 vs Baseline vs Previous Total Hip(Left) 02/11/2024 83 0.880 -0.5 0.071 (8.8%)# 0.023 (2.7%)# 07/19/2019 79 0.857 -0.7 0.049 (6.0%)* 0.049 (6.0%)* 04/21/2017 76 0.808 -1.1 *Denotes significance at 95% confidence level, LSC for Total Hip = 0.027 g/cm2 # Denotes dissimilar scan types or analysis methods Clinical Information Provided by Patient: Have had a previous hip or vertebral fracture Has had a low trauma fracture Has used the following medications: Vitamin D Has the following medical conditions: Cancer, Hysterectomy Patient maximum height was 66 Menopause Age: 41 No regular weight bearing exercise Drinks caffeinated beverages Number of children 4 Impression: The patient has low bone mass, based on the Left Femoral Neck T-score. The patient has risk factors, including: previous fracture. No significant bone loss was observed. Discussion: INCREASED RISK OF FRACTURE DUE TO HISTORY OF FRACTURE. The patient's previous fracture puts the patient at high risk of a future fracture. In untreated patients, the risk of osteoporotic fracture increases approximately two-fold for each 1.0 SD decrease in T-score. Low bone density is not the only risk factor for fracture; also consider factors such as patient's age, frailty or poor health, risk of falling, risk of injury, previous osteoporotic fracture, family history of osteoporosis, cigarette smoking, low body weight, etc. Not everyone with a low trauma fracture has osteoporosis; osteomalacia and other metabolic bone disorders should also be considered. Patients who have osteoporosis should be evaluated for specific diseases and conditions (secondary causes) that may cause or contribute to bone loss and fracture risk. National Osteoporosis Foundation (NOF) recommends pharmacologic intervention for patients with a prior hip or vertebral fracture regardless of BMD T-score. The patient should follow a healthful lifestyle (good nutrition with adequate calcium and vitamin D, and appropriate weight-bearing exercise). Follow-Up: Consider a repeat BMD and Vertebral Fracture Assessment (VFA) exam in 2 years or sooner if medically necessary, to reassess this patient's status. Reported by: RAINER on 02/11/2024 2:04:00 PM. Reviewed, dictated and finalized at location A.
== END 2024-02-11 13:14 | disposition home or self-care (01) ==
PROVIDERS: PCP Nurse Practitioner Family; Visit Provider Internal Medicine Hematology & Oncology
DX: M85.852 Other specified disorders of bone density and structure, left thigh (principal)
CPT/HCPCS: 77080

== ENCOUNTER 2024-03-22 09:51 | Outpatient (CLI) | payer MEDICARE, SELFPAY ==
[2024-03-22 10:02] LABS: Basophils Absolute Auto 0.1 K/mm3 (0.0-0.1); Basophils Percent Auto 0.7 % (0.2-1.2); Eosinophils Absolute Auto 0.4 K/mm3 (0-0.3); Eosinophils Percent Auto 5.4 % (0-4.4); Hematocrit 40.8 % (37.0-47.0); Hemoglobin 13.2 g/dL (12.0-15.0); Immature Granulocyte Absolute 0.02 K/mm3 (0.00-0.031); Immature Granulocyte Percent A 0.3 % (0-0.5); Lymphocytes Absolute Auto 1.81 K/mm3 (0.9-3.2); Lymphocytes Percent Auto 25.5 % (18.3-44.2); Mean Corpuscular HGB Conc 32.4 g/dl (32-36); Mean Corpuscular Hemoglobin 29.3 pg (26-34); Mean Corpuscular Volume 90.5 fl (80-100); Mean Platelet Volume 10.1 fl (7.4-10.4); Monocytes Absolute Auto 0.6 K/mm3 (0.1-0.6); Monocytes Percent Auto 8.7 % (2.6-8.5); Neutrophils Absolute Auto 4.2 K/mm3 (1.3-6.7); Neutrophils Percent Auto 59.4 % (45.5-73.1); Platelet Count Result 262 k/mm3 (150-375); Red Blood Count 4.51 M/mm3 (4.2-5.4); Red Cell Distribution Width 13.4 % (11.5-14.5); White Blood Count 7.1 K/mm3 (4.5-10.0)
--- OUTSIDE RECORDS SUMMARY | 2024-03-22 10:27 | XMS_ITS | Encounter Summary ---
Author Organization [facility] Address [facility]. [place], [place] [id number] [place] [id number] Care Team Providers Care Hostess Cashier Name Role Phone Prema Novak Primary Care Provider [phone] Encounter Details Date Type Department Care Team ([facility] Contact Info) Description 12/28/2017 Abstract HEALTH INFO [facility] Scanned, Documents Social History Tobacco Use Types Packs/Day Years Used Date Smoking Tobacco: Never Assessed Comments Unknown Sex and Gender Information Value Date Recorded Sex Assigned at Not on file Legal Sex Female 6:25 PM CDT Gender Identity Not on file Sexual Orientation Not on file documented as of this encounter Plan of Treatment Not on file documented as of this encounter Visit Diagnoses Not on filedocumented in this encounter Administered Medications Administered Medications Medication Order MAR Action Action Date Dose Rate Site PROLIA INJ Given 12/28/2017 60 mL documented in this encounter Care Teams Hostess Cashier Relationship Specialty Start Date End Date Prema Novak FNP [address] [place] [id number] PCP - General NURSE PRACTITIONER 12/09/17 documented as of this encounter
--- OUTSIDE RECORDS SUMMARY | 2024-03-22 10:27 | XMS_ITS | Clinical Summary ---
Author Organization [facility] Address [address] [place], [place] [address] [place] [address] Care Team Providers Care Environmental Services Worker Name Role Phone Prema Novak IZZY Primary Care Provider [phone] Allergies Active Allergy Reactions Criticality Noted Date Comments Cefaclor Rash,Other (see comment) Medium 08/31/2018 Throat swelling Throat swelling Throat swelling Erythromycin Unknown Morphine Unknown,Other (see comment),Chest pressure High 12/20/2009 Chest pain Chest pain Chest pain Chest pain Chest pain Chest pain Chest pain Penicillin G Hallucinations Medium 08/13/2017 Penicillins Unknown,Rash High 12/20/2009 Sulfa Antibiotics Unknown,Anaphylaxis, Hive s High 04/17/2015 Warfarin And Related Other (see comment),Tinnitus,Unknow n High 05/11/2015 Medications Cholecalciferol (VITAMIN D3) 2000 units Tab Activ e aspirin 81 MG tablet Take 1 tablet (81 mg total) by mouth daily. Active tamoxifen 20 MG tablet Take 1 tablet by mouth daily. 11 09/24/2018 Active latanoprost (XALATAN) 0.005 % ophthalmic solution Place 1 drop into both eyes nightly. Active SYNTHROID 112 MCG tabletIndication s:Hypothyroidism , unspecified type Take 1 tablet (112 mcg total) by mouth every morning. 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 1 Personal history of irradiation 12/10/2018 Vitamin B 12 deficiency 11/04/2018 Vitamin D deficiency 11/04/2018 Allergic rhinitis 02/25/2018 IBS (irritable bowel syndrome) 02/25/2018 Osteoarthrosis 02/25/2018 Osteoporosis 10/01/2017 Prophylactic antibiotic 08/14/2017 Abnormal CBC 06/26/2017 Abnormal mammography 06/26/2017 Hypothyroidism 06/26/2017 Obesity (BMI 35.0-39.9 without comorbidity) 06/16 Hypothyroidism due to acquired atrophy of thyroi d 04/08/2016 Presence of IVC filter 05/21/2015 Elevated blood pressure read ing without diagnosis of hypertension 04/17/2015 Arthritis 12/20/2009 Resolved Problems Problem Noted Date Diagnosed Date Resolved Date Bone pain 12/22/2022 12/03/2023 Pain of left thigh 12/22/2022 Actinic keratosis 11/20/2021 12/03/2023 Acquired skin tag 11/20/2021 12/03/[address] ate ([facility]) 09/25/2020 11/07/2021 Skin lesion 11/11/2018 12/03/2023 Paronychia of great toe of left foot 11/04/2018 12/03/2023 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 08/05/2018 12/03/2023 Overview (11/04/2018): Overview: Added automatically from request for surgery [id number] Skin tag 10/01/2017 12/03/2023 Leg cramps 08/03/2017 11/07/2021 Colon cancer screening 06/26/201710/27 GERD (gastroesophageal reflux disease) 06/26/2017 12/03/2023 Low vitamin D level 06/26/2017 12/03/19 24 Palpitations 06/26/2017 12/03/2023 Encounter for preventive health examination 06/21/2017 10/28/2019 Heartburn 04/08/2016 11/07/2021 Coagulation disorder ([facility]) 12/20/2009 11/07/2021 DVT (deep venous thrombosis) ([facility]) 12/20/2009 11/07/2021 Encounters Date Type Department Care Team Description 02/11/2024 Scan HEALTH INFO SRVCS Scanned, Doc Med Group Bone Density Report (SCAN) from Last 3 Months Immunizations Name Administration Dates Next Due Arexvy Respiratory Syncytial Virus (RSV, adjuvanted) 0.5 mL, PF 02/01/2023 Fluzone High Dose (IIV, triv alent, 0.5mL) 09/25/2023 Fluzone High Dose - >Age 65 (Prefilled Syringe) 11/04/2021,10/16/2020,10/04/2019 Influenza (Generic) 11/27/2012 Influenza Adult (Generic) 10/06/2022,,10/16/2020,2019,10/25/2016,10/24/2015 MODERNA COVID-19 BIVALENT (1 2+), MRNA, LNP-S, PF 11/15/2021 MODERNA COVID-19 (12+) MRNA, LNP-S, PF, 100 MCG/ 0.5 ML DOSE 05/08/2020,03/29/2020 MODERNA COVID-19 (DISTRICT MANAGER JANICE SYLVIE), MRNA, LNP-S, PF, 50 MCG/ 0.25 ML DOSE 08/05/2021,01/13/2021 Pneumococcal (Pneumovax 23) 11/02/2017, 5 Pneumococcal (Prevnar 13) 10/25/2016 Shingrix 02/19/2020,10/04/2019 Tdap (Boostrix) 05/11/2015 Tdap (Generic) 05/11/2015 Zoster (Zostavax) 35657 Unt/0.65Ml 01/30/2012 Family History Medical History Relation Comments Cancer Paternal Grandmother breast Arthritis Sister Cancer Sister breast Kidney Disease Sister Relation Status Comments Paternal Grandmother Sister Social History Tobacco Use Types Packs/Day Years Used Date Smoking Tobacco: Former Cigarettes 1 20 0 02/25/1979 - 02/25/1999 Smokeless Tobacco: Never Tobacco Cessation:Counseling Given: Yes Alcohol Use Standard Drinks/Week Comments Yes 0 (1 standard drink = 0.6 oz pur e alcohol) occ AUDIT-C Answer Date Recorded Frequency of Alcohol Consumption Monthly or less 02/25/2018 Average Number of Drinks Not on file 019 Frequency of Binge Drinking Not on file 02/16 PHQ-2 Answer Date Recorded Patient Health Questionnaire-2 Score 0 11/03/2022 Comments No Sex and Gender Information Value Date Recorded Sex Assigned at Not on file Legal Sex Female 6:25 PM CDT Gender Identity Not on file Sexual Orientation Not on file Last Filed Vital Signs Vital Sign Reading Time Taken Comments Blood Pressure 138/80 12/03/2023 9:00 AM CDT Pulse 62 12/03/2023 9:00 AM CDT Temperature 36.1 ??C (97 ??F) 12/03/2023 9:00 AM CDT Respiratory Rate 16 12/03/2023 9:00 AM CDT Oxygen Saturation 98% 12/03/2023 9:00 AM CDT Inhaled Oxygen Concentration - - Weight 89.6 kg (197 lb 9.6 oz) 12/03/2023 9:00 A M CDT Height 160 cm (5' 3 ) 12/03/2023 9:00 AM CDT Body Mass Index 35 12/03/2023 9:00 AM CDT Plan of Treatment Health Maintenance Due Date Last Done Comments Annual Medicare Wellness Visit 06/23/2007 PHQ-2 (Physician [place]) 11/04/2023 11/03/2022 PHQ-2 (Physician [place]) 02/17/2024 11/03/2022 DTaP, Tdap and Td Vaccines (3 - Td or Tdap) 05/10/2025 05/11/2015, 05/11/2015 Pneumococcal Vaccine: 65+ Years Completed 11/02/2017, 10/25/2016, 05/10/2014 Zoster Vaccines Completed 02/19/2020, 09/16, 01/30/2012 RSV Immunization or 60+ Years Completed 02/01/2023 Influenza Adult Completed 09/25/2023, 09/17, 11/05/2021, Additional history exists COVID-19 Vaccine Completed 10/15/2023, , 11/15/2021, Additional history exists Dexa Scan (General) Completed 02/11/2024, 0 Meningococcal B Vaccine Aged Out No l onger eligible based on patient's age to complete this topic Meningococcal Vaccine Aged Out No ghulam leonardo eligible based on patient's age to complete this topic RSV Immunizations Under 20 Months Aged Out No longer eligible based on patient's age to complete this topic Procedures Procedure Name Priority Date/Time Associated Diagnosis Comments BONE DENSITY GENERIC (SCAN ORDER) 02/11/2024 from Last 3 Months Results * BONE DENSITY GENERIC (SCAN ORDER) (02/11/2024) Anatomical Region Laterality Modality Other 02/11/2024 us Doc Med Group Scanned SCANNING Final Resu lt from Last 3 Months Insurance [employer] [facility] Care Teams Environmental Services Worker Relationship Specialty Start Date End Date Prema Novak FNP [address] [place] [id number] PCP - General NURSE PRACTITIONER 12/09/17
--- OUTSIDE RECORDS SUMMARY | 2024-03-22 10:27 | XMS_ITS | Clinical Summary ---
Author Organization [facility] Address [address] [place] [address] Care Team Providers Care Supply Chain Vice President Name Role Phone Rayo Parker MD Primary Care Provider [phone] Source Comments [facility],non-owned Affiliates and Associated Physician Practices is amultiple site organization consisting of ambulatory clinics and hospital sitesin [place], [place], [place] and [place]. This disclosure is being madepursuant to the Care Everywhere program and may not contain all information available regarding this patient. Last updated 17.[facility] Allergies Active Allergy Reactions Criticality Noted Date Comments Morphine Other,Shortness of Breath,Rash,Unknown High 12/20/2009 Chest pain Chest pain Chest pain Chest pain Chest pain Chest pain Chest pain Chest pain Chest pain Chest pain Penicillins Other,Urticaria,Rash ,Un known High 12/20/2009 Sulfa Antibiotics Anaphylaxis,Urticari a,U nknown High 12/20/2009 Warfarin Rash,Tinnitus,Unknown High 05/11/2015 Medications * Be aware that medications may not be up to date on this document. Alwaysverify current medications with the patient. Medication Sig Dispensed Refills Start Date End Date Status Biotin 1000 MCG Take 1 (one) tablet by mouth 3 times daily Active latanoprost (Xalatan) 0.005 % ophthalmic solution INSTILL 1 DROP INTO BOTH EYES EVERY NIGHT 03/09/2023 Active tamoxifen (Nolvadex) 20 MG tablet Take 1 (one) tablet by mouth once daily 12/08/2022 Active Cholecalciferol 50 MCG (1999) Active levothyroxine (Synthroid) 137 MCG tablet Take 1 (one) tablet by mouth daily before breakfast Active meloxicam (Mobic) 7.5 MG tablet Take 1 (one) tablet by mouth once daily 30 tablet 2 03/30/2023 Active gabapentin (Neurontin) 300 MG capsule Take 1 (one) capsule by mouth 3 times daily 90 capsule 2 07/01/2023 Active Active Problems No known active problems Social History Tobacco Use Types Packs/Day Years Used Date Smoking Tobacco: Unknown Tobacco Cessation:Counseling Given: Not Answered PHQ-2 Answer Date Recorded Patient Health Questionnaire-2 Score 0 04/20/2023 Sex and Gender Information Value Date Recorded Sex Assigned at Not on file Gender Identity Not on file Sexual Orientation Not on file Last Filed Vital Signs Vital Sign Reading Time Taken Comments Blood Pressure - - Pulse - - Temperature - - Respiratory Rate - - Oxygen Saturation - - Inhaled Oxygen Concentration - - Weight 89.4 kg (197 lb) 04/20/2023 11:32 AM MICRO LAB ANALYST Height 157.5 cm (5' 2 ) 04/20/2023 11:32 AM MICRO LAB ANALYST Body Mass Index 36.03 04/20/2023 11:32 AM MICRO LAB ANALYST Plan of Treatment Health Maintenance Due Date Last Done Comments BONE DENSITY TESTING 1940 MEDICARE AWV ? 12 MONTHS 1940 DTAP/TDAP/TD VACCINES (1 - Tdap) 1961 PNEUMOCOCCAL VACCINE 50+ (1 of 1 - PCV) 1992 ZOSTER VACCINE (1 of 2) 1992 Respiratory Syncytial Virus (RSV) Vaccine Pt: or over 60 yrs (1 - 1-dose 75+ series) 2017 COVID-19 VACCINE ( season) 2023 11/15/2021, 08/05/2021, 01/13/2021, Additional history exists INFLUENZA VACCINE (#1) 2023 3, 11/05/2021, 10/16/2020, Additional history exists DEPRESSION SCREENING 02/17/2024 04/20/2023 HEPATITIS B VACCINE Aged Out No longe r eligible based on patient's age to complete this topic HIB VACCINE Aged Out No longer eligi ble based on patient's age to complete this topic HPV VACCINE Aged Out No longer eligi ble based on patient's age to complete this topic MENINGOCOCCAL (Group B) VACCINE Aged Out No longer eligible based on patient's age to complete this topic MENINGOCOCCAL VACCINE Aged Out No ghulam leonardo eligible based on patient's age to complete this topic Care Teams Supply Chain Vice President Relationship Specialty Start Date End Date Rayo Parker MD [address] [place] [id number] PCP - General Medical Oncology 03/30/23
--- OUTSIDE RECORDS SUMMARY | 2024-03-22 10:27 | XMS_ITS | Clinical Summary ---
Author Organization [facility] Address [address] [place] [address] Care Team Providers Care Brand Communications Manager Name Role Phone Prema Novak [facility] Primary Care Provider [phone] Allergies Active Allergy Reactions Criticality Noted Date Comments Morphine Other (See Comments) 09/25/2020 Chest pain Penicillins Hallucination Low 09/25/2020 Sulfa (Sulfonamide Antibiotics) Unknown 09/25/2020 Medications Biotin 1 mg Tablet Take by mouth. Activ e flu vaccine trivalent MF59 2019-20 (65 yr+)(PF)(FLUAD) 45 mcg/0.5 mL IM syringe TO BE ADMINISTERED BY PHARMACIST FOR IMMUNIZATION 9 Active latanoprost (XALATAN) 0.005 % solution INSTILL 1 DROP INTO BOTH EYES AT BEDTIME 3 Active levothyroxine 112 mcg tablet Take 112 mcg by mouth daily in the morning. Active tamoxifen (NOLVADEX) 20 mg tablet Take 1 Tablet (20 mg) by mouth daily. 90 Tablet 2 4 Active Active Problems Problem Noted Date Diagnosed Date History of breast cancer 09/25/2020 Secondary hypercoagulable state 09/25/2020 Encounters Date Type Department Care Team Description 03/15/2024 External Device Data [facility] ABSTRACTION Provider, Abstract 03/09/2024 External Device Data [facility] ABSTRACTION Provider, Abstract 03/09/2024 External Device Data [facility] ABSTRACTION Provider, Abstract 02/12/2024 Orders Only [facility] Oncology and Hematology - [place] [address] [place] [address] Rayo Parker MD from Last 3 Months Family History Medical History Relation Name Comments Cancer Daughter 2 Relation Name Status Comments Brother 1 Alive Brother 2 Alive Daughter 1 Alive Daughter 2 Alive Father Mother Sister 1 Sister 2 Alive Son 1 Alive Son 2 Alive Social History Tobacco Use Types Packs/Day Years Used Date Smoking Tobacco: Former Smokeless Tobacco: Never Tobacco Cessation:Counseling Given: Not Answered Alcohol Use Standard Drinks/Week Comments Never 0 (1 standard drink = 0.6 oz pur e alcohol) Comments No Sex and Gender Information Value Date Recorded Sex Assigned at Not on file Legal Sex Female 1:55 PM CDT Gender Identity Not on file Sexual Orientation Not on file Last Filed Vital Signs Vital Sign Reading Time Taken Comments Blood Pressure 119/68 08/13/2023 1:59 PM CDT Pulse 65 08/13/2023 1:59 PM CDT Temperature 36.7 ??C (98 ??F) 08/13/2023 1:59 PM CDT Respiratory Rate 16 08/13/2023 1:59 PM CDT Oxygen Saturation 96% 08/13/2023 1:59 PM CDT Inhaled Oxygen Concentration - - Weight 91.2 kg (201 lb) 08/13/2023 1:59 PM CDT Height 162.6 cm (5' 4 ) 09/04/2021 1:01 PM CDT Body Mass Index 34.5 09/04/2021 1:01 PM CDT Plan of Treatment Upcoming Encounters Date Type Department Care Team (Late st Contact Info) Description 03/22/2024 11:00 AM LOGISTICS PROJECT MANAGER Office Visit [facility] Oncology and Hematology - [place] [address] [facility] [address] [place] [address] Rayo Parker MD [address] [place] [address] Health Maintenance Due Date Last Done Comments RSV VACCINE (60+ or ) (1 - 1-dose 75+ series) 2017 INFLUENZA VACCINE (#1) 2023 , 10/16/2020, 10/04/2019, Additional history exists COVID-19 Vaccine (2023-2 5 season) 2023 11/15/2021, 08/05/2021, 01/13/2021, Additional history exists DTAP/TDAP/TD VACCINES (2 - T d or Tdap) 05/10/2025 05/11/2015 COLORECTAL SCREENING Discontinued 09/14/2017, 09/15/19 18 Colorectal Cancer Screening Discontinued PNEUMOCOCCAL VACCINE 65+ YEARS Completed 0 11/02/2017, 10/25/2016, 05/10/2014 OSTEOPOROSIS SCREENING Completed , 07/19/2019, 04/21/2017 ZOSTER VACCINE Completed 02/19/2020, 09/16, 01/30/2012 FIT-DNA Q 3 years Discontinued FIT/FOBT Q 1 year Discontinued Flex Sig/CT Colonography Q 5 years Discontinued Procedures Procedure Name Priority Date/Time Associated Diagnosis Comments NM BONE DENSITY Routine 02/11/2024 8:21 AM LOGISTICS PROJECT MANAGER from Last 3 Months Results * NM BONE DENSITY (02/11/2024 8:21 AM LOGISTICS PROJECT MANAGER) Anatomical Region Laterality Modality Other Rayo Parker MD NM ORDERABLES Final Result from Last 3 Months Insurance MEDICARE [place] [employer] MEDICARE SUPP AESSI MEDICARE RAILROAD [employer] MEDICARE SUPP AESSI Care Teams Brand Communications Manager Relationship Specialty Start Date End Date Prema Novak FNP [address] [place] [id number] PCP - General Nurse Practitioner Family 09/25/20
--- OUTSIDE RECORDS SUMMARY | 2024-03-22 10:27 | XMS_ITS | Clinical Summary ---
Author Organization [facility] Address [address] [place] [address] Phone Care Team Providers Care Stripping Cutter And Winder Name Role Phone Rayo Baez MD Unavailable [phone] Allergies Active Allergy Reactions Criticality Noted Date Comments Cefaclor Rash,Other (see Comments) Throat swelling Erythromycin Unknown Morphine Other (see Comments) High 12/20/2009 Chest pain Penicillins Rash High 12/20/2009 Sulfa Antibiotics Unknown 12/20/2009 Warfarin And Related Other (see Comments) Low 05/10 Medications nitrofurantoin, macrocrystal-mo nohydrate, (MACROBID) 100 MG Capsule TAKE ONE CAPSULE BY MOUTH TWICE A DAY FOR 7 DAYS 0 07/03/2016 Active hyoscyamine (LEVBID) 0.375 MG TABLET SR 12 HR TAKE 1 TABLET BY MOUTH EVERY 12 (TWELVE) HOURS NEEDED FOR CRAMPING. 3 04/08/2016 Active pantoprazole (PROTONIX) 40 MG Tablet Delayed Response TAKE 1 TABLET BY MOUTH DAILY NEEDED. 3 04/08/2016 Active Aspirin 81 MG Tablet Take 81 mg by mouth daily. Active SYNTHROID 150 MCG Tablet TAKE 1 TABLET BY MOUTH EVERY DAY 30 Tab 6 05/12/2017 Active Active Problems Problem Noted Date Diagnosed Date DVT (deep venous thrombosis) 12/20/2009 Blood clotting disorder 12/20/2009 Arthritis 12/20/2009 GERD (gastroesophageal reflux disease) Hypothyroidism Osteoarthrosis Allergic rhinitis IBS (irritable bowel syndrome) Immunizations Immunization Administration Dates Next Due Influenza Vaccine 11/27/2012 Influenza, high-dose, trivalent, PF 10/25/2016,0 10/24/2015 PUR TDAP 7+ YRS IM 05/11/2015 Pneumococcal Vaccine - 13 Valent 10/25/2016 Pneumococcal Vaccine Adult - 23 Valent 5 Zoster Vaccine, live 01/30/2012 Family History Medical History Relation Name Comments Breast Cancer Daughter 39 Clotting Disorder Other sister Ovarian Cancer Neg Hx Relation Name Status Comments Daughter 39 Alive Other Social History Tobacco Use Types Packs/Day Years Used Date Smoking Tobacco: Former Cigarettes Q uit: 02/16/1999 Smokeless Tobacco: Never Alcohol Use Standard Drinks/Week Comments Not Asked 0 (1 standard drink = 0.6 oz pur e alcohol) Comments No Sex and Gender Information Value Date Recorded Sex Assigned at Not on file Legal Sex Female 3:01 AM GIS GEOGRAPHER Gender Identity Not on file Sexual Orientation Not on file Last Filed Vital Signs Vital Sign Reading Time Taken Comments Blood Pressure 128/82 07/15/2016 12:58 PM CDT Pulse 56 07/15/2016 12:58 PM CDT Temperature 36.7 ??C (98.1 ??F) 07/15/2016 12:58 PM C DT Respiratory Rate 16 07/15/2016 12:58 PM CDT Oxygen Saturation 98% 07/15/2016 12:58 PM CDT Inhaled Oxygen Concentration - - Weight 103 kg (227 lb) 07/15/2016 12:58 PM CDT Height 165.1 cm (5' 5 ) 07/15/2016 12:58 PM CDT Body Mass Index 37.77 07/15/2016 12:58 PM CDT Plan of Treatment Health Maintenance Due Date Last Done Comments DEXA Bone Density 1940 Hepatitis C Virus (HCV) Screening 1940 Zoster Immunization (2 of 3) 03/26/2012 01/30/2012 Respiratory Syncytial Virus (RSV) Immunization (Adult) (1 - 1-dose 75+ series) 2017 Influenza Immunization (#1) 10/18/202310/2016, 10/24/2015, 11/27/2012 SARS-COV-2 Immunization ( - season) 2023 DTaP/Tdap/Td Immunization Discontinued 05/11/2015 Pneumococcal Immunization (50+ years) Completed 10/25/2016, 05/10/2014 Pneumococcal Immunization Combined Discontinued 10/25/2016, 05/10/2014 Hepatitis B Immunization Aged Out No longer eligible based on patient's age to complete this topic Meningococcal Immunization (ACWY) Aged Out No longer eligible based on patient's age to complete this topic Rotavirus Immunization Aged Out No lo nger eligible based on patient's age to complete this topic Insurance [employer] SENIOR SUPPLEMENTAL MEDICARE RAILROAD Care Teams Stripping Cutter And Winder Relationship Specialty Start Date End Date Rayo Baez MD [address] [place] [address] 01/21/11
--- OUTSIDE RECORDS SUMMARY | 2024-03-22 10:27 | XMS_ITS | Patient Health Summary ---
Author Organization [facility] Address [address] [place] [address] Care Team Providers Care Router Operator Name Role Phone Rayo Parker MD Primary Care Provider [phone] Note from [facility],non-owned Affiliates and Associated Physician Practices is amultiple site organization consisting of ambulatory clinics and hospital sitesin [place], [place], [place] and [place]. This disclosure is being madepursuant to the Care Everywhere program and may not contain all information available regarding this patient. Last updated 17.[facility] Allergies * Morphine(Other,Shortness of Breath,Rash,Unknown) -High Criticality * Penicillins(Other,Urticaria,Rash,Unknown) -High Criticality * Sulfa Antibiotics(Anaphylaxis,Urticaria,Unknown) -High Criticality * Warfarin(Rash,Tinnitus,Unknown) -High Criticality Medications * Be aware that medications may not be up to date on this document. Alwaysverify current medications with the patient. * Biotin 1000 MCG Take 1 (one) tablet by mouth 3 times daily * latanoprost (Xalatan) 0.005 % ophthalmic solution(Started 03/09/2023) INSTILL 1 DROP INTO BOTH EYES EVERY NIGHT * tamoxifen (Nolvadex) 20 MG tablet(Started 12/08/2022) Take 1 (one) tablet by mouth once daily * Cholecalciferol 50 MCG (1999) * levothyroxine (Synthroid) 137 MCG tablet Take 1 (one) tablet by mouth daily before breakfast * meloxicam (Mobic) 7.5 MG tablet(Started 03/30/2023) Take 1 (one) tablet by mouth once daily 2 refills by 03/29/2024 * gabapentin (Neurontin) 300 MG capsule(Started 07/01/2023) Take 1 (one) capsule by mouth 3 times daily 2 refills by 06/30/2024 Active Problems No known active problems Social [...] 89.4 kg (197 lb) 04/20/2023 11:32 AM TRAVEL PROFESSIONAL Height 157.5 cm (5' 2 ) 04/20/2023 11:32 AM TRAVEL PROFESSIONAL Body Mass Index 36.03 04/20/2023 11:32 AM TRAVEL PROFESSIONAL Procedures * DERMATOPATHOLOGY(Performed 02/18/2022) Performed for Neoplasm of uncertain behavior of skin Results * DERMATOPATHOLOGY (02/18/2022 1:11 AM TRAVEL PROFESSIONAL) Case Report Dermatopathology Report ? Case: [id number] ? Authorizing Provider: ??Marti Hill, ?? Collected: ? 02/18/2022 01:11 AM ? PA-C ? Ordering Location: ? [facility] ?Received: ?02/19/2022 01:29 PM ? Pathologist: ? Janett Moctezuma MD ? Specimens: ?? A) - Skin, right lat snell ? B) - Skin, right lower eyelid ? 3 11:29 AM [facility] DERMATOPATH[facility]Y [facility]OR[facility] Final Diagnosis Specimen A. SKIN, right lat snell: BENIGN VERRUCOUS KERATOSIS (L82.1) Specimen B. SKIN, right lower eyelid: HYPERPLASTIC (HYPERTROPHIC) ACTINIC KERATOSIS (L57.0) 3 11:29 AM [facility] DERMATOPATH[facility]Y [facility] Clinical History A-B: Squamous Cell Carcinoma 3 11:29 AM [facility] DERMATOPATH[facility]Y [facility] Gross Description Specimen A: Received is one formalin filled container labeled with the patient's name and designated right lat snell. The specimen consists of a shave biopsy measuring 7x5x1 mm. Jar 0. Specimen B: Received is one formalin filled container labeled with the patient's name and designated right lower eyelid. The specimen consists of a shave biopsy measuring 4x3x1 mm. Jar 0. 3 11:29 AM [facility] DERMATOPATHOLOGY [facility] Microscopic Description Specimen A. SKIN, right lat snell: Sections show hyperkeratosis, papillomatosis, hypergranulosis, and acanthosis. These histological findings can be seen in a verruca vulgaris or a seborrheic keratosis. Specimen B. SKIN, right lower eyelid: There is hyperkeratosis alternating with parakeratosis. There is epidermal hyperplasia with disorderly maturation of keratinocytes with nuclear pleomorphism confined to the lower half of the epidermis. 3 11:29 AM [facility] DERMATOPATHOLOGY [facility]OR[facility] Disclaimer An external and internal positive and negative controls are appropriate for the histochemical, immunohistochemical and immunofluorescence stain(s) in this case (if any), except where stated explicitly. The performance characteristics of the stain(s) cited in this report were developed and its performance characteristic determined by the Dermatopathology Laboratory at [facility], directed by Dr. Windy Enamorado. These tests need not be, and therefore are not, approved by the [place] Food and Drug Administration. The tests are used for clinical purposes. Billing Codes Specimen Charges Stain Charges 01367 75884 1 1 3 11:29 AM [facility] DERMATOPATHOLOGY [facility]OR[facility] Embedded Images 3 11:29 AM [facility] DERMATOPATH[facility]Y [facility] Pathology/Cytology TISSUE SPECIMEN FROM SKIN / Unknown 02/18/2022 1:11 AM TRAVEL PROFESSIONAL 02/19/2022 1:29 PM TRAVEL PROFESSIONAL Miscellaneous samples (specimen) TISSUE SPECIMEN FROM SKIN / Unknown 02/18/2022 1:11 AM TRAVEL PROFESSIONAL 02/19/2022 1:29 PM TRAVEL PROFESSIONAL Marti Hill PA-C LAB - PATHOL OGY/CYTOLOGY ORDERABLES DERMATOPATHOLOGY LABORATORY [facility] - Department of Dermatology [facility] [address] [place] [address], [address] [phone] Care Teams Router Operator Relationship Specialty Start Date End Date Rayo Parker MD [facility] [address] [place] [phone] PCP - General Medical Oncology 03/30/23
--- OUTSIDE RECORDS SUMMARY | 2024-03-22 10:27 | XMS_ITS | Clinical Summary ---
Author Organization [facility] Address [address] [place] [address] Care Team Providers Care Quickbooks Bookkeeper Name Role Phone Prema Novak NP Primary Care Provider [phone] Ninfa Bernal MD PhD Unavailable [phone] Yaritza Soriano MD Unavailable [phone] Allergies Active Allergy Reactions Criticality Noted Date Comments Cefaclor Rash Medium 08/31/2018 Throat swelling Erythromycin Unknown 08/31/2018 Morphine Chest tightness,Other (See comments),Rash,Unkno wn High 12/20/2009 Chest pain Chest pain Chest pain Chest pain Chest pain Chest pain Chest pain Chest pain Chest pain Chest pain Penicillins Hives,Rash,Unknown High 12/20/2009 Sulfa (Sulfonamide Antibiotics) Hives,Other (See comments),Unknown,An aphylaxis High 12/20/2009 Warfarin Unknown,Tinnitus,Abhilash h High 05/11/2015 Medications aspirin 81 mg tabletIndications:[facility] Take 81 mg by mouth every morning Active denosumab (PROLIA) 60 mg/mL syringeIndications: last dose 06/27/2018 Inject under the skin every 6 (six) months 10/02/19 18 Active levothyroxine (SYNTHROID) 137 mcg tablet Take 137 mcg by mouth gizzard skin remover before breakfast 04/05/19 19 Active calcium citrate-vitamin D3 200 mg calcium -250 unit tablet 1 tablet Active biotin 1 mg tablet Take 1,000 mcg by mouth 3 (three) times a day Active clindamycin (CLEOCIN) 300 mg capsule TAKE 1 CAPSULE BY MOUTH THREE TIMES A DAY FOR 10 DAYS 0 11/05/19 19 Active influenza trivalent [id number] (FLUAD) 45 mcg (15 mcg x 3)/0.5 mL syringe TO BE ADMINISTERED BY PHARMACIST FOR IMMUNIZATION 10/02/19 19 Active hyoscyamine ER (LEVBID) 0.375 mg 12 hr tablet Take 375 mcg by mouth 04/08/[address] (PROTONIX) 40 mg EC tablet Take by mouth 04/08/19 17 Active levothyroxine (SYNTHROID) 137 mcg tablet TAKE 1 TABLET BY MOUTH EVERY DAY IN THE MORNING 04/04/19 20 Active tamoxifen (NOLVADEX) 20 mg tablet TAKE 1 TABLET BY MOUTH EVERY DAY 90 tablet 3 08/18/19 21 Active benzonatate (TESSALON) 200 mg capsuleIndications: Acute nasopharyngitis Take 1 capsule (200 mg total) by mouth 3 (three) times a day as needed for cough keep tessalon out of reach of children, especially children under the age of 10, due to possible serious risk such as if ingested by children under the age of 10. 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 Cancer Staging:Clinical:Stage 0(cTis (DCIS), cN0, cM0) - Signed by Mynor Ann MD on 09/18/2018 Pathologic:Stage Unknown(pTis (DCIS), pNX, cM0, ER+, [place]+, HER2: Unknown) - Signed by Mynor Ann MD on 09/18/2018 Overview (08/05/2018): Added automatically from request for surgery [id number] Surgical History Surgery Date Site/Laterality Comments TONSILLECTOMY 02/17/1948 - 02/15/1949 APPENDECTOMY 02/16/1959 - 02/16/1960 HIP ARTHROPLASTY 02/16/2009 - 02/15/2010 Right Hip replacement BREAST BIOPSY 02/16/1973 - 02/15/1974 Left benign BREAST BIOPSY 02/16/1974 - 02/15/1975 Left benign BREAST BIOPSY 02/16/1982 - 02/15/1983 Left benign BREAST BIOPSY 02/17/1988 - 02/15/1989 Left benign BREAST BIOPSY 08/02/2018 Right CATARACT EXTRACTION 02/16/2009 - 02/15/2010 BREAST BIOPSY 02/16/2018 - 02/15/2019 CHOLECYSTECTOMY HYSTERECTOMY 02/16/1973 - 02/15/1974 OOPHORECTOMY 1981, 1988 with adhesiolysis BREAST LUMPECTOMY 08/16/2018 Right Medical History Medical History Date Comments Hypothyroid Overweight Osteoporosis GERD (gastroesophageal reflux disease) Osteoarthritis Awareness under anesthesia State s opened eyes during oophorectomy 1981; did not feel pain Family History Medical History Relation Name Comments Breast cancer Daughter gene panel melvi ting negative Brain Aneurysm Mother's Sister Relation Name Status Comments Daughter Mother's Sister Social History Tobacco Use Types Packs/Day Years Used Date Smoking Tobacco: Former Cigarettes 0.3 20 1 980 - 1999 Smokeless Tobacco: Never Alcohol Use Standard Drinks/Week Comments Yes 1 (1 standard drink = 0.6 oz pur e alcohol) Comments No Sex and Gender Information Value Date Recorded Sex Assigned at Not on file Legal Sex Female 4:37 PM CDT Gender Identity Not on file Sexual Orientation Not on file Obstetrics History Last Filed Vital Signs Vital Sign Reading Time Taken Comments Blood Pressure 138/84 12/25/2021 9:05 AM CRYPTOLOGIC SUPPORT SPECIALIST Pulse 79 12/25/2021 9:05 AM CRYPTOLOGIC SUPPORT SPECIALIST Temperature 36.7 ??C (98.1 ??F) 12/25/2021 9:05 AM CS T Respiratory Rate 20 12/25/2021 9:05 AM CRYPTOLOGIC SUPPORT SPECIALIST Oxygen Saturation 96% 12/25/2021 9:05 AM CRYPTOLOGIC SUPPORT SPECIALIST Inhaled Oxygen Concentration - - Weight 87.5 kg (193 lb) 12/25/2021 9:05 AM CRYPTOLOGIC SUPPORT SPECIALIST Height 165.1 cm (5' 5 ) 12/25/2021 9:05 AM CRYPTOLOGIC SUPPORT SPECIALIST Body Mass Index 32.12 12/25/2021 9:05 AM CRYPTOLOGIC SUPPORT SPECIALIST Plan of Treatment Health Maintenance Due Date Last Done Comments Depression Screening 1942 Fall Risk Assessment 1942 Osteoporosis Screening-Bone Density Scan 1942 Hepatitis B Screening 1960 Well Visit 65+ 06/23/2007 Covid-19 Vaccine (3 - Modern a risk series) 06/05/2020 05/08/2020, 03/29/2020 Influenza Vaccine (#1) 2023 , 10/16/2020, 10/04/2019, Additional history exists DTaP/Tdap/Td Vaccine (2 - Td or Tdap) 05/10/2025 05/11/2015 Pneumococcal vaccine 65+ Completed 018, 10/24/2016, 05/10/2014 Zoster Vaccine Completed 02/19/2020, 09/16, 01/30/2012 Insurance MEDICARE RAILROAD AETNA SENIOR SUPPLEMENT MEDICARE RAILROAD AETNA SENIOR SUPPLEMENT Advance Directives For more information, please contact: [phone] * Full Code (Latest Code Status on File) Date Activated Date Inactivated Comments 09/14/2017 11:54 AM 09/14/2017 4:15 PM Care Teams Quickbooks Bookkeeper Relationship Specialty Start Date End Date Prema Novak NP [address] [place] [address] PCP - General Nurse Practitioner 07/16/18 Ninfa Bernal MD PhD [address] [place] [address] Radiation Oncologist Radiation Oncology 09/18/18 Yaritza Soriano MD [address] [place] [address] Surgeon Surgical Oncology 09/18/18
--- OUTSIDE RECORDS SUMMARY | 2024-03-22 10:27 | XMS_ITS | Referral Summary ---
Author Organization [facility] Address [address] [place] [address] Care Team Providers Care Transportation Engineering Technician Name Role Phone Prema Novak NP Primary Care Provider + [phone] Ninfa Bernal MD PhD Unavailable [phone] Yaritza Soriano MD Unavailable [phone] Allergies Active Allergy Reactions Criticality Noted Date [...] h High 05/11/2015 Medications aspirin 81 mg [facility]Indications:[facility] Take 81 mg by mouth every morning Active denosumab (PROLIA) 60 mg/mL syringeIndications: last dose 06/27/2018 Inject under the skin every 6 (six) months 10/02/19 18 Active levothyroxine (SYNTHROID) 137 mcg tablet Take 137 mcg by mouth drywall contractor before breakfast 04/05/19 19 Active calcium citrate-vitamin D3 200 mg calcium -250 unit tablet 1 tablet Active biotin 1 mg tablet Take 1,000 mcg by mouth 3 (three) times a day Active clindamycin (CLEOCIN) 300 mg capsule TAKE 1 CAPSULE BY MOUTH THREE TIMES A DAY FOR 10 DAYS 0 11/05/19 19 Active influenza trivalent [id number] (FLUAD) 45 mcg (15 mcg x 3)/0.5 [...] breast 1 Personal history of irradiation 12/10/2018 jail (current) use of s elective estrogen receptor modulators (serms) 12/10/2018 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 Cancer Staging:Clinical:Stage 0(cTis (DCIS), cN0, cM0) - Signed by Mynor Ann MD on 09/18/2018 Pathologic:Stage Unknown(pTis (DCIS), pNX, cM0, ER+, [place]+, HER2: Unknown) - Signed by Mynor Ann MD on 09/18/2018 Overview (08/05/2018): Added automatically from request for surgery [id number] Social History Tobacco Use Types Packs/Day Years Used Date Smoking Tobacco: Former Cigarettes 0.3 20 1 980 - 2000 Smokeless Tobacco: Never Alcohol Use Standard Drinks/Week [...] Comments Blood Pressure 138/84 12/25/2021 9:05 AM SPEECH LANGUAGE PATHOLOGY ASSISTANT Pulse 79 12/25/2021 9:05 AM SPEECH LANGUAGE PATHOLOGY ASSISTANT Temperature 36.7 ??C (98.1 ??F) 12/25/2021 9:05 AM CS T Respiratory Rate 20 12/25/2021 9:05 AM SPEECH LANGUAGE PATHOLOGY ASSISTANT Oxygen Saturation 96% 12/25/2021 9:05 AM SPEECH LANGUAGE PATHOLOGY ASSISTANT Inhaled Oxygen Concentration - - Weight 87.5 kg (193 lb) 12/25/2021 9:05 AM SPEECH LANGUAGE PATHOLOGY ASSISTANT Height 165.1 cm (5' 5 ) 12/25/2021 9:05 AM SPEECH LANGUAGE PATHOLOGY ASSISTANT Body Mass Index 32.12 12/25/2021 9:05 AM SPEECH LANGUAGE PATHOLOGY ASSISTANT Plan of Treatment Not on file Insurance MEDICARE RAILROAD AETNA SENIOR SUPPLEMENT MEDICARE RAILROAD AETNA SENIOR SUPPLEMENT Advance Directives For more information, please contact: [phone] * Full Code (Latest Code Status on File) Date Activated Date Inactivated Comments 09/14/2017 11:54 AM 09/14/2017 4:15 PM Care Teams Transportation Engineering Technician Relationship Specialty Start Date End Date Prema Novak NP [address] [place] [address] PCP - General Nurse Practitioner 07/16/18 Ninfa Bernal MD PhD [address] [place] [address] Radiation Oncologist Radiation Oncology 09/18/18 Yaritza Soriano MD [address] [place] [address] Surgeon Surgical Oncology 09/18/18
--- OUTSIDE RECORDS SUMMARY | 2024-03-22 10:27 | XMS_ITS ---
Author Organization [facility] Address [address] [place] [address] Care Team Providers Care Speech And Hearing Director Name Role Phone Prema Novak NP Primary Care Provider + [phone] Ninfa Bernal MD PhD Unavailable [phone] Yaritza Soriano MD Unavailable [phone] Active Problems Problem Noted Date Diagnosed Date Encounter for follow-up exam ination after completed treatment for conditions other than malignant neoplasm 12/10/2018 Personal history of in-situ neoplasm of breast 1 Personal history of irradiation 12/10/2018 half-way (current) use of s elective estrogen receptor modulators (serms) 12/10/2018 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 Cancer Staging:Clinical:Stage 0(cTis (DCIS), cN0, cM0) - Signed by Mynor Ann MD on 09/18/2018 Pathologic:Stage Unknown(pTis (DCIS), pNX, cM0, ER+, [place]+, HER2: Unknown) - Signed by Mynor Ann MD on 09/18/2018 Overview (08/05/2018): Added automatically from request for surgery [id number] Current Oncology Plans No current plan information found. Past Plans No past plan information found. Radiation Treatments * Plan Last Treated On Days Fractions Treated Prescribed Fraction Dose Prescribed Total Dose RT BRST:1 10/29/2018 23 14 266 cGy 3,724 cGy RT BRST 10/07/2018 1 2 266 cGy 4,256 cGy Reference Point Last Treated On Elapsed Days Session Dose Total Dose BROWN DPV 10/29/2018 23 266 cGy 4,256 cGy
--- OUTSIDE RECORDS SUMMARY | 2024-03-22 10:27 | XMS_ITS | Referral Summary ---
Author Organization [facility] Address [address] [place] [address] Care Team Providers Care Lump Maker Name Role Phone Rayo Parker MD Primary Care Provider [phone] Source Comments [facility],non-owned Affiliates and Associated Physician Practices is amultiple site organization consisting of ambulatory clinics and hospital sitesin [place], [place], [place] and [place]. This disclosure is being madepursuant to the Care Everywhere program and may not contain all information available regarding this patient. Last updated 17.[facility] Allergies Active Allergy Reactions Criticality Noted Date [...] 89.4 kg (197 lb) 04/20/2023 11:32 AM PERSONAL LINES SALES REP Height 157.5 cm (5' 2 ) 04/20/2023 11:32 AM PERSONAL LINES SALES REP Body Mass Index 36.03 04/20/2023 11:32 AM PERSONAL LINES SALES REP Plan of Treatment Not on file Care Teams Lump Maker Relationship Specialty Start Date End Date Rayo Parker MD [address] [place] [address] [place] [phone] PCP - General Medical Oncology 03/30/23
[2024-03-22 11:21] LABS: Sodium 140 mmol/L (138-146)
[2024-03-22 11:22] LABS: Blood Urea Nitrogen 12 mg/dL (8-26); Carbon Dioxide 25 mmol/L (22-30); Chloride 103 mmol/L (98-109); Estimated Glomerular Filt Rate 48; Glucose 88 mg/dL (70-105); Potassium 4.3 mmol/L (3.5-4.9)
[2024-03-22 11:23] LABS: Ionized Calcium (POC) 1.23 mmol/L (1.11-1.31)
[2024-03-22 15:26] LABS: Alanine Aminotransferase 13 U/L (6-35); Alkaline Phosphatase 46 U/L (38-126); Anion Gap 11 mmol/L (4-12); Aspartate Amino Transferase 25 U/L (14-36); Bilirubin,Total 0.7 mg/dL (0.2-1.3); Blood Urea Nitrogen 13 mg/dL (7-17); Calcium 9.1 mg/dL (8.4-10.2); Carbon Dioxide 26 mmol/L (22-30); Chloride 103 mmol/L (98-107); Estimated Glomerular Filt Rate > 60; Glucose 87 mg/dL (65-110); Potassium 4.3 mmol/L (3.4-5.0); Sodium 140 mmol/L (137-145)
[2024-03-22 15:59] LABS: Blood Urea Nitrogen 12 mg/dL (8-26); Carbon Dioxide 25 mmol/L (22-30); Chloride 103 mmol/L (98-109); Estimated Glomerular Filt Rate 48; Glucose 88 mg/dL (70-105); Ionized Calcium (POC) 1.23 mmol/L (1.11-1.31); Potassium 4.3 mmol/L (3.5-4.9); Sodium 140 mmol/L (138-146)
== END 2024-03-22 09:52 | disposition home or self-care (01) ==
PROVIDERS: PCP Nurse Practitioner Family; Visit Provider Internal Medicine Hematology & Oncology
DX: C50.911 Malignant neoplasm of unspecified site of right female breast (principal); Z17.0 Estrogen receptor positive status [ER+]
CPT/HCPCS: 36415; 80047; 80053; 85025

== ENCOUNTER 2024-09-03 16:11 | Emergency (ER) | payer MEDICARE, SELFPAY ==
--- NOTE | ~2024-09-03 | CT_ITS ---
CT angiogram the left lower extremity Clinical history: Painful leg, edema TECHNIQUE: Following intravenous administration of 150 cc of Omnipaque 350 contrast material, axial i maging of the obstruction is performed from the level of the left pelvis through the forefoot. FINDINGS: Left common iliac artery is patent with moderate atherosclerotic calcification. Left casket assembler metal al iliac, common femoral, and profunda femoral arteries are widely patent. Left femoral artery and po pliteal artery are widely patent. Popliteal trifurcation is unremarkable. Left posterior tibial, ante rior tibial, and peroneal arteries are patent, as is the dorsalis pedis artery. No high-grade stenosi s evident. Visual is musculature in the left lower extremity is unremarkable. No joint effusion evident. Osseous structures appear intact. No soft tissue mass or fluid collection seen. IMPRESSION: Moderate atherosclerotic calcification of the left common iliac artery. Remaining arterial structures of the left lower extremity are widely patent, as detailed above. No hi gh-grade stenosis or large vessel occlusion. Reviewed, dictated and finalized at location . IMPRESSION: Moderate atherosclerotic calcification of the left common iliac artery. Remaining arterial structures of the left lower extremity are widely patent, as detailed above. No high-grade stenosis or large vessel occlusion.
--- NOTE | ~2024-09-03 | US_ITS ---
Duplex Sonography of the left extremity: Indication: Pain Findings: Sagittal and transverse B-mode images as well as color-flow imaging were performed on the l eft femoral and popliteal veins. B-mode examination was done without and with compression in the tra nsverse plane. There is good visualization of the common femoral, proximal profunda femoral, superfi cial femoral, greater saphenous, and popliteal veins. Normal flow was seen on color-flow imaging. No rmal compressibility was demonstrated. Visualized calf veins are also patent. Impression: No evidence of deep vein thrombosis involving the left lower extremity. Reviewed, dictated and finalized at location M. Impression: No evidence of deep vein thrombosis involving the left lower extremity.
--- OUTSIDE RECORDS SUMMARY | 2024-09-03 16:13 | XMS_ITS | Encounter Summary ---
Author Organization [facility] Address [address] [place] [address] Care Team Providers Care Sand Screener Operator Name Role Phone Prema Novak Primary Care Provider [phone] Encounter Details Date Type Department Care Team (Late Contact Info) Description 08/31/2024 External Device Data [facility] Provider, Abstract NO ADDRESS ON FILE Social History Tobacco Use Types Packs/Day Years Used Date Smoking Tobacco: Former Smokeless Tobacco: Never Alcohol Use Standard Drinks/Week Comments Never 0 (1 standard drink = 0.6 oz pur e alcohol) Comments No Sex and Gender Information Value Date Recorded Sex Assigned at Not on file Legal Sex Female 1:55 PM CDT Gender Identity Not on file Sexual Orientation Not on file documented as of this encounter Plan of Treatment Upcoming Encounters Date Type Department Care Team (Late Contact Info) Description 10/18/2024 11:30 AM CDT Office Visit [facility] Oncology and Hematology - [place] [address] [place] [phone] Rayo Parker MD [address] [phone] documented as of this encounter Visit Diagnoses Not on filedocumented in this encounter Care Teams Sand Screener Operator Relationship Specialty Start Date End Date Pream Novak FNP [address] [place] [phone] PCP - General Nurse Practitioner Family 09/25/20 documented as of this encounter
--- OUTSIDE RECORDS SUMMARY | 2024-09-03 16:13 | XMS_ITS | Clinical Summary ---
[facility] Organization [facility] Address [address] [address] [place] [address] Care Team Providers Care Rock Splitter Name Role Phone Prema Novak [facility] Primary Care Provider [phone] Allergies Active Allergy Reactions Criticality Noted Date [...] morning. Active tamoxifen (NOLVADEX) 20 mg tablet TAKE 1 TABLET BY MOUTH EVERY DAY 90 Tablet 3 5 Active Active Problems Problem Noted Date Diagnosed Date History of breast cancer 09/25/2020 Secondary hypercoagulable state 09/25/2020 Encounters Date Type Department Care Team Description 08/31/2024 External Device Data [facility]CTION Provider, Abstract 08/31/2024 External Device Data [facility] Provider, Abstract 08/30/2024 External Device Data [facility] Provider, Abstract 08/03/2024 External Device Data [facility] Provider, Abstract 08/02/2024 External Device Data [facility] Provider, Abstract 07/07/2024 External Device Data [facility] Provider, Abstract 07/06/2024 External Device Data [facility] Provider, Abstract 07/05/2024 External Device Data [facility] Provider, Abstract from Last 3 Months Family History Medical [...] Sign Reading Time Taken Comments Blood Pressure 117/81 03/22/2024 11:54 AM BOAT RENTAL CLERK Pulse 70 03/22/2024 11:54 AM BOAT RENTAL CLERK Temperature 36.2 C (97.2 F) 03/22/2024 11:54 AM BOAT RENTAL CLERK Respiratory Rate 16 08/13/2023 1:59 PM CDT Oxygen Saturation 95% 03/22/2024 11:54 AM BOAT RENTAL CLERK Inhaled Oxygen Concentration - - Weight 88.2 kg (194 lb 6.4 oz) 03/22/2024 11:54 AM BOAT RENTAL CLERK Height 162.6 cm (5' 4) 09/04/2021 1:01 PM CDT Body Mass Index 33.37 09/04/2021 1:01 PM CDT Plan of Treatment Upcoming Encounters Date Type Department Care Team (Late st Contact Info) Description 10/18/2024 11:30 AM CDT Office Visit [facility] Oncology and Hematology - [place] [address] [facility] [address] [place] [address] Rayo Parker MD [address] [facility] [address] [place] [address] Health Maintenance Due Date Last Done Comments RSV VACCINE (60+ or ) (1 - 1-dose 75+ series) 2017 COVID-19 Vaccine (2023-2 5 season) 2023 11/15/2021, 08/05/2021, 01/13/2021, Additional history exists INFLUENZA VACCINE (#1) 2024 4, 11/04/2021, 10/16/2020, Additional history exists DTAP/TDAP/TD VACCINES (2 - T d or Tdap) 05/10/2025 05/11/2015 OSTEOPOROSIS SCREENING 02/10/2029 , 02/11/2024, 07/19/2019, Additional history exists COLORECTAL SCREENING Discontinued 09/14/2017, 09/15/19 18 Colorectal Cancer Screening Discontinued PNEUMOCOCCAL VACCINE 50+ YEARS Completed 0 11/02/2017, 10/25/2016, 05/10/2014 ZOSTER VACCINE Completed 02/19/2020, 09/16, 01/30/2012 FIT-DNA Q 3 years Discontinued FIT/FOBT Q 1 year Discontinued Flex Sig/CT Colonography Q 5 years Discontinued Insurance MEDICARE [employer] AETNA MEDICARE SUPP AESSI AETNA MEDICARE SUPP AESSI Care Teams Rock Splitter Relationship Specialty Start Date End Date Prema Novak FNP [address] [place] [phone] PCP - General Nurse Practitioner Family 09/25/20
--- OUTSIDE RECORDS SUMMARY | 2024-09-03 16:13 | XMS_ITS | Referral Summary ---
Author Organization [facility] Address [address] [place] [address] Care Team Providers Care Body Coverer Name Role Phone Prema Novak NP Primary Care Provider [phone] Ninfa Bernal MD PhD Unavailable [phone] Yaritza Soriano MD Unavailable [phone] Encounters Date Type Department Care Team Description 09/03/2024 3:45 PM CDT Office Visit [facility] at [address] [address] Bassem Melendrez NP Pain in the groin, left (Primary Dx); Left leg swelling from Last 3 Months Allergies Active Allergy Reactions Criticality Noted Date Comments Cefaclor Rash Medium 08/31/2018 Throat swelling Erythromycin Unknown 08/31/2018 Morphine Chest tightness,Other (See comments),Rash,Unkno wn High 12/20/2009 Chest pain Chest pain Chest pain Chest pain Chest pain Chest pain Chest pain Chest pain Chest pain Chest pain Penicillins Hives,Rash,Unknown High 12/20/2009 Sulfa (Sulfonamide Antibiotics) Anaphylaxis,Hives,Ot her (See comments),Unknown,Ur ticaria High 12/20/2009 Warfarin Unknown,Tinnitus,Abhilash h High 05/11/2015 Medications aspirin 81 mg tabletIndications:[facility] Take 81 mg by mouth every morning Active denosumab (PROLIA) 60 mg/mL syringeIndications: last dose 06/27/2018 Inject under the skin every 6 (six) months 10/02/19 18 Active levothyroxine (SYNTHROID) 137 mcg tablet Take 137 mcg by mouth underwear hemmer before breakfast 04/05/19 19 Active calcium citrate-vitamin D3 200 mg calcium -250 unit tablet 1 tablet Active biotin 1 mg tablet Take 1,000 mcg by mouth 3 (three) times a day Active clindamycin (CLEOCIN) 300 mg capsule TAKE 1 CAPSULE BY MOUTH THREE TIMES A DAY FOR 10 DAYS 0 11/05/19 19 Active influenza trivalent [id number] (FLUAD) 45 mcg (15 mcg x 3)/0.5 [...] of 10. 30 capsule 12/26/19 22 Active gabapentin (NEURONTIN) 300 mg capsule Take 1 capsule (300 mg total) by mouth 3 (three) times a day 07/01/19 24 Active latanoprost (XALATAN) 0.005 % ophthalmic solution INSTILL 1 DROP INTO BOTH EYES EVERY NIGHT Active meloxicam (MOBIC) 7.5 mg tablet Take 1 tablet (7.5 mg total) by mouth daily 03/30/19 24 Active Active Problems Problem Noted Date Diagnosed Date Acquired unequal leg length 05/27/2024 Lumbar radiculopathy 05/27/2024 Osteoarthritis of left hip 05/24/2024 Secondary hypercoagulable state 09/25/2020 Encounter for follow-up exam ination after completed treatment for conditions other than malignant neoplasm 12/10/2018 Personal history of in-situ neoplasm of breast 1 Personal history of irradiation 12/10/2018 detention (current) use of s elective estrogen receptor modulators (serms) 12/10/2018 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 Cancer Staging:Clinical:Stage 0(cTis (DCIS), cN0, cM0) - Signed by Mynor Ann MD on 09/18/2018 Pathologic:Stage Unknown(pTis (DCIS), pNX, cM0, ER+, GA+, HER2: Unknown) - Signed by Mynor Ann MD on 09/18/2018 Overview (08/05/2018): Added automatically from request for surgery [id number] Immunizations Immunization Administration Dates Next Due Influenza, Quadrivalent, Hig h Dose, Preservative Free, Intrr 10/04/2019 Influenza, Trivalent, Adjuva nted, Intramuscular 10/01/2018 Influenza, Trivalent, High D ose, Split, Preservative Free, Intramuscular 09/25/2023,11/03/2017,11/02/2017,10/24,10/23/2015,12/01/2014 Influenza, Trivalent, Preser vative Free, Intramuscular 11/27/2012 Influenza, Unspecified 10/06/2022,2021,10/16/2020,10/25,10/24/2015 Pneumococcal Conjugate PCV 13 10/24/2016 Pneumococcal Polysaccharide PPV23 11/03/2017,,05/10/2014 Tdap 05/11/2015 ZOSTER LIVE 01/30/2012 ZOSTER Recombinant 02/19/2020,10/04/2019 Social History Tobacco Use Types Packs/Day Years [...] Sign Reading Time Taken Comments Blood Pressure 124/79 09/03/2024 3:43 PM CDT Pulse 76 09/03/2024 3:43 PM CDT Temperature 36.4 C (97.5 F) 09/03/2024 3:43 PM CDT Respiratory Rate 16 09/03/2024 3:43 PM CDT Oxygen Saturation 98% 09/03/2024 3:43 PM CDT Inhaled Oxygen Concentration - - Weight 88.9 kg (196 lb) 09/03/2024 3:43 PM CDT Height 165.1 cm (5' 5) 12/25/2021 9:05 AM NATUROPATHIC PHYSICIAN Body Mass Index 32.62 12/25/2021 9:05 AM NATUROPATHIC PHYSICIAN Plan of Treatment Not on file Insurance MEDICARE RAILROAD [employer] SENIOR SUPPLEMENT MEDICARE RAILROAD T SENIOR SUPPLEMENT MEDICARE RAILROAD T SENIOR SUPPLEMENT Advance Directives For more information, please contact: [phone] * Full Code (Latest Code Status on File) Date Activated Date Inactivated Comments 09/14/2017 11:54 AM 09/14/2017 4:15 PM Care Teams Body Coverer Relationship Specialty Start Date End Date Prema Novak NP [address] [place] [id number] PCP - General Nurse Practitioner 07/16/18 Ninfa Bernal MD PhD [address] [place] [address] Radiation Oncologist Radiation Oncology 09/18/18 Yaritza Soriano MD [address] [place] [id number] Surgeon Surgical Oncology 09/18/18
--- OUTSIDE RECORDS SUMMARY | 2024-09-03 16:13 | XMS_ITS | Clinical Summary ---
Author Organization [facility] Address [address] [place] [address] Care Team Providers Care General Teller Name Role Phone Prema Novak Primary Care Provider [phone] Allergies Active Allergy Reactions Criticality Noted Date [...] estrogen receptor positive, unspecified site of breast (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) 12/20/2009 11/07/2021 Immunizations Immunization Administration Dates Next Due Arexvy Respiratory Syncytial Virus (RSV, adjuvanted) 0.5 mL, PF 02/01/2023 Fluzone High Dose (IIV, triv alent, 0.5mL) 09/25/2023 Fluzone High Dose - >Age 65 (Prefilled Syringe) 11/04/2021,10/16/2020,10/04/2019 Influenza (Generic) 11/27/2012 Influenza Adult (Generic) 10/06/2022,,10/16/2020,2019,10/25/2016,10/24/2015 MODERNA COVID-19 BIVALENT (1 2+), MRNA, LNP-S, PF 11/15/2021 MODERNA COVID-19 (12+) MRNA, LNP-S, PF, 100 MCG/ 0.5 ML DOSE 05/08/2020,03/29/2020 MODERNA COVID-19 (CORRECTIONS UNIT SUPERVISOR JANICE SYLVIE), MRNA, LNP-S, PF, 50 MCG/ 0.25 ML DOSE 08/05/2021,01/13/2021 Pneumococcal (Pneumovax 23) 11/02/2017, 5 Pneumococcal (Prevnar 13) 10/25/2016 Shingrix 02/19/2020,10/04/2019 Tdap (Boostrix) 05/11/2015 Tdap (Generic) 05/11/2015 Zoster (Zostavax) 33684 Unt/0.65Ml 01/30/2012 Family History Medical History Relation [...] 62 12/03/2023 9:00 AM CDT Temperature 36.1 C (97 F) 12/03/2023 9:00 AM CDT Respiratory Rate 16 12/03/2023 9:00 AM CDT Oxygen Saturation 98% 12/03/2023 9:00 AM CDT Inhaled Oxygen Concentration - - Weight 89.6 kg (197 lb 9.6 oz) 12/03/2023 9:00 A M CDT Height 160 cm (5' 3) 12/03/2023 9:00 AM CDT Body Mass Index 35 12/03/2023 9:00 AM CDT Plan of Treatment Health Maintenance Due Date Last Done Comments Annual Medicare Wellness Visit 06/23/2007 PHQ-2 (Physician [place]) 02/17/2024 11/03/2022 COVID-19 Vaccine ( season) 2024 10/15/2023, 11/05/2022, 11/15/2021, Additional history exists DTaP, Tdap and Td Vaccines (3 - Td or Tdap) 05/10/2025 05/11/2015, 05/11/2015 Pneumococcal Vaccine: 50+ Years Completed 11/02/2017, 10/25/2016, 05/10/2014 Zoster Vaccines Completed 02/19/2020, 09/16, 01/30/2012 RSV Immunization or 60+ Years Completed 02/01/2023 Dexa Scan (General) Completed 02/11/2024, 0 Meningococcal [...] (SCAN ORDER) 02/11/2024 from Last 3 Months or Most Recently Relevant to Health Maintenance Results * BONE DENSITY GENERIC (SCAN ORDER) (02/11/2024) Anatomical Region Laterality Modality Other 02/11/2024 [facility] Scanned SCANNING Final Resu lt from Last 3 Months or Most Recently Relevant to Health Maintenance Insurance [place] [employer] [facility] Care Teams General Teller Relationship Specialty Start Date End Date Prema Novak FNP [address] [place] [id number] PCP - General NURSE PRACTITIONER 12/09/17
--- OUTSIDE RECORDS SUMMARY | 2024-09-03 16:13 | XMS_ITS ---
Author Organization [facility] Address [address] [place] [address] Care Team Providers Care Theatre Arts Professor Name Role Phone Prema Novak NP Primary Care Provider [phone] Ninfa Bernal MD PhD Unavailable [phone] Yaritza Soriano MD Unavailable [phone] Active Problems Problem Noted Date Diagnosed Date Acquired unequal leg length 05/27/2024 Lumbar radiculopathy 05/27/2024 Osteoarthritis of left hip 05/24/2024 Secondary hypercoagulable state 09/25/2020 Encounter for follow-up exam ination after completed treatment for conditions other than malignant neoplasm 12/10/2018 Personal history of in-situ neoplasm of breast 1 Personal history of irradiation 12/10/2018 [facility] (current) use of s elective estrogen receptor modulators (serms) 12/10/2018 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 Cancer Staging:Clinical:Stage 0(cTis (DCIS), cN0, cM0) - Signed by Mynor Ann MD on 09/18/2018 Pathologic:Stage Unknown(pTis (DCIS), pNX, cM0, ER+, NC+, HER2: Unknown) - Signed by Mynor Ann MD on 09/18/2018 Overview (08/05/2018): Added automatically from request for surgery [id number] Current Treatment and Therapy Plans No current plan information found. Past Treatment and Therapy Plans No past plan information found. Radiation Treatments * Course C1 R BRS NC 2019 10/06/2018 - 10/29/2018 Treatment Period Energy Fraction Dose Fractions Total Dose Plans Planned RT BRST:1 10/08/2018 - 10/29/2018 266 14 / 3,724 RT BRST 10/06/2018 - 10/07/2018 266 2 / 4,256 Reference Points Delivered BROWN DPV 10/06/2018 - 10/29/2018 4,256
--- OUTSIDE RECORDS SUMMARY | 2024-09-03 16:13 | XMS_ITS | Clinical Summary ---
Author Organization [facility] Address [address] [place] [address] Care Team Providers Care Cost Recovery Technician Name Role Phone Rayo Parker MD Primary Care Provider [phone] Source Comments [facility],non-owned Affiliates and Associated Physician Practices is amultiple site organization consisting of ambulatory clinics and hospital sitesin [place], [place] and [place]. This disclosure is being madepursuant to the Care Everywhere program and may not contain all information available regarding this patient. Last updated 17.[facility] Allergies Active Allergy Reactions Criticality Noted Date [...] document. Alwaysverify current medications with the patient. Biotin 1000 MCG Take 1 (one) tablet by mouth 3 times daily Active latanoprost (Xalatan) 0.005 % ophthalmic solution INSTILL 1 DROP INTO BOTH EYES EVERY NIGHT 4 Active tamoxifen (Nolvadex) 20 MG tablet Take 1 (one) tablet by mouth once daily 3 Active Cholecalciferol 50 MCG (1999) Active levothyroxine (Synthroid) 137 MCG tablet Take 1 (one) tablet by mouth daily before breakfast Active meloxicam (Mobic) 7.5 MG tablet Take 1 (one) tablet by mouth once daily 30 tablet 2 4 Active gabapentin (Neurontin) 300 MG capsule Take 1 (one) capsule by mouth 3 times daily 90 capsule 2 4 Active Active Problems No known active problems Social History Tobacco Use Types Packs/Day Years Used Date Smoking Tobacco: Unknown Tobacco Cessation:Counseling Given: Not Answered PHQ-2 Answer Date Recorded Patient Health Questionnaire-2 Score 0 04/20/2023 Comments Unknown Sex and Gender Information Value Date Recorded Sex Assigned at Not on file Legal Sex Female 4:34 PM CONCRETE M[employer]ING [employer] SUPERINTENDENT Gender Identity Not on file Sexual Orientation Not on file Last Filed Vital Signs Vital Sign Reading Time Taken Comments Blood Pressure - - Pulse - - Temperature - - Respiratory Rate - - Oxygen Saturation - - Inhaled Oxygen Concentration - - Weight 89.4 kg (197 lb) 04/20/2023 11:32 AM CONCRETE MIXING PLANT SUPERINTENDENT Height 157.5 cm (5' 2) 04/20/2023 11:32 AM CONCRETE MIXING PLANT SUPERINTENDENT Body Mass Index 36.03 04/20/2023 11:32 AM CONCRETE MIXING PLANT SUPERINTENDENT Plan of Treatment Health Maintenance Due Date Last Done Comments BONE DENSITY TESTING 1940 MEDICARE AWV 12 MONTHS 1942 DTAP/TDAP/TD VACCINES (1 - Tdap) 1961 PNEUMOCOCCAL VACCINE 50+ (1 of 1 - PCV) 1992 ZOSTER VACCINE (1 of 2) 1992 Respiratory Syncytial Virus (RSV) Vaccine Pt: or over 60 yrs (1 - 1-dose 75+ series) 2017 COVID-19 VACCINE ( season) 2023 11/15/2021, 08/05/2021, 01/13/2021, Additional history exists DEPRESSION SCREENING 02/17/2024 04/20/2023 INFLUENZA VACCINE (#1) 2024 3, 11/05/2021, 10/16/2020, Additional history exists HEPATITIS B VACCINE Aged Out No longe r eligible based on patient's age to complete this topic HIB VACCINE Aged Out No longer eligi ble based on patient's age to complete this topic HPV VACCINE Aged Out No longer eligi ble based on patient's age to complete this topic MENINGOCOCCAL (Group B) VACCINE SHARED DECISION-MAKING Aged Out No longer eligible based on patient's age to complete this topic MENINGOCOCCAL GROUPS A/C/Y/W VACCINE Aged Out No longer eligible based on patient's age to complete this topic Insurance MEDICARE Member Subscriber Plan / Payer ( fective 2007-Present) Name:Shelly Gaston Member ID:[id number] Relation to Subscriber:Self Name:Shelly Gaston Subscriber ID:[id number] Payer ID:Not on file Group ID:Not on file Type:Medicare Address: [address] MEDICARE Care Teams Cost Recovery Technician Relationship Specialty Start Date End Date Rayo Parker MD [address] [address] PCP - General Medical Oncology 03/30/23
--- OUTSIDE RECORDS SUMMARY | 2024-09-03 16:13 | XMS_ITS | Encounter Summary ---
Author Organization [facility] Healthcare Address [address] [place] [address] Care Team Providers Care Fiscal Assistant Name Role Phone Prema Novak NP Primary Care Provider + [phone] Ninfa Bernal MD PhD Unavailable Yaritza Soriano MD Unavailable Reason for Visit * Reason Comments Leg Pain Closer to groin area Encounter Details Date Type Department Care Team (Late st Contact Info) Description 09/03/2024 3:45 PM CDT Office Visit [facility] at [address] [address] Bassem Melendrez NP [address] [place] [address] [address] [place] [address] Pain in the groin, left (Primary Dx); Left leg swelling Social History Tobacco Use Types Packs/Day Years [...] on file documented as of this encounter Last Filed Vital Signs Vital Sign Reading Time Taken Comments Blood Pressure 124/79 09/03/2024 3:43 PM CDT Pulse 76 09/03/2024 3:43 PM CDT Temperature 36.4 C (97.5 F) 09/03/2024 3:43 PM CDT Respiratory Rate 16 09/03/2024 3:43 PM CDT Oxygen Saturation 98% 09/03/2024 3:43 PM CDT Inhaled Oxygen Concentration - - Weight 88.9 kg (196 lb) 09/03/2024 3:43 PM CDT Height - - Body Mass Index 32.62 12/25/2021 9:05 AM GRINDING WHEEL INSPECTOR documented in this encounter Progress Notes * Bassem Melendrez NP - 09/03/2024 3:45 PM CDT Images from the original note were not included. Subjective/Objective Patient ID: Shelly Gaston is a 84 y.o. female. This patient has verbally consented to recording this visit in order to utilize AI technology in generating this note. Chief Complaint Leg Pain (Closer to groin area /) History of Present Illness Shelly Gaston is an 84 year old female with a history of hip replacement and prior blood clots who presents with left hip pain. She experiences a 'sickening pain' in her left hip, which began after a long drive (1000 mile) and physical activities like mowing the lawn. The pain worsens with car seat adjustments, particularly affecting the non-replaced hip. She has difficulty bearing weight on the left side and perceives a leg length discrepancy, feeling 'like two inches differential' and uses an insert for compensation. Her right hip has been replaced, but the left has not. Previous consultations with hip specialists found no issues. There is no redness or protrusions in the groin area, but she notes 'bad veining' in the upper leg, which has been evaluated before. She has a history of blood clots, treated with a screen during major surgeries and self-administered shots post-hip surgery. She is currently on a baby aspirin regimen. Swelling is present around herankles, more on the left than the right. She associates frequent nighttime urination with fluid retention. She has lost almost 100 pounds recently and questions if this is related to her symptoms. She takesTylenol 500 mg for pain but did not take it today. She expresses an aversion to medication, statinga dislike for how her body reacts to drugs. Review of Systems All other systems reviewed and are negative. Physical Exam EXTREMITIES: Left ankle swollen, 1.5 cm larger than right. Physical Exam Vitals and nursing note reviewed. Exam conducted with a preservationist present (pts daughter). Constitutional: General: She is not in acute distress. Appearance: Normal appearance. Cardiovascular: Rate and Rhythm: Normal rate. Pulmonary: Effort: Pulmonary effort is normal. Abdominal: Hernia: There is no hernia in the left inguinal area. Musculoskeletal: Legs: Comments: Left ankle 25 cm, right ankle 23.5 cm. No pitting Skin: General: Skin is warm and dry. Capillary Refill: Capillary refill takes less than 2 seconds. Findings: No bruising, erythema or rash. Neurological: Mental Status: She is alert and oriented to person, place, and time. Vitals: 09/03/24 1543 BP: 124/79 Pulse: 76 Resp: 16 Temp: 36.4 ??C (97.5 ??F) TempSrc: Continuous Temporal Temperature SpO2: 98% Weight: 88.9 kg (196 lb) No results found. Past Medical History: Diagnosis Date Awareness under anesthesia States opened eyes during oophorectomy 1981; did not feel pain GERD (gastroesophageal reflux disease) Hypothyroid Osteoarthritis Osteoporosis Overweight Current Outpatient Medications: gabapentin (NEURONTIN) 300 mg capsule, Take 1 capsule (300 mg total) by mouth 3 (three) times a day, Disp: , Rfl: meloxicam (MOBIC) 7.5 mg tablet, Take 1 tablet (7.5 mg total) by mouth daily, Disp: , Rfl: aspirin 81 mg tablet, Take 81 mg by mouth every morning , Disp: , Rfl: benzonatate (TESSALON) 200 mg capsule, Take 1 capsule (200 mg total) by mouth 3 (three) times a dayas needed for cough keep tessalon out of reach of children, especially children under the age of 10, due to possible serious risk such as if ingested by children under the age of 10., Disp: 30 capsule, Rfl: 0 biotin 1 mg tablet, Take 1,000 mcg by mouth 3 (three) times a day, Disp: , Rfl: calcium citrate-vitamin D3 200 mg calcium -250 unit tablet, 1 tablet, Disp: , Rfl: clindamycin (CLEOCIN) 300 mg capsule, TAKE 1 CAPSULE BY MOUTH THREE TIMES A DAY FOR 10 DAYS, Disp: , Rfl: 0 denosumab (PROLIA) 60 mg/mL syringe, Inject under the skin every 6 (six) months , Disp: , Rfl: hyoscyamine ER (LEVBID) 0.375 mg 12 hr tablet, Take 375 mcg by mouth, Disp: , Rfl: influenza trivalent [id number] (FLUAD) 45 mcg (15 mcg x 3)/0.5 mL syringe, TO BE ADMINISTERED BY PHARMACIST FOR IMMUNIZATION, Disp: , Rfl: latanoprost (XALATAN) 0.005 % ophthalmic solution, INSTILL 1 DROP INTO BOTH EYES EVERY NIGHT, Disp:, Rfl: levothyroxine (SYNTHROID) 137 mcg tablet, Take 137 mcg by mouth global marketing manager before breakfast, Disp: , Rfl: levothyroxine (SYNTHROID) 137 mcg tablet, TAKE 1 TABLET BY MOUTH EVERY DAY IN THE MORNING, Disp: , Rfl: pantoprazole DR (PROTONIX) 40 mg EC tablet, Take by mouth, Disp: , Rfl: tamoxifen (NOLVADEX) 20 mg tablet, TAKE 1 TABLET BY MOUTH EVERY DAY, Disp: 90 tablet, Rfl: 3 Allergies Allergen Reactions Morphine Chest tightness, Other (See comments), Rash and Unknown Chest pain Chest pain Chest pain Chest pain Chest pain Chest pain Chest pain Chest pain Chest pain Chest pain Penicillins Hives, Rash and Unknown Sulfa (Sulfonamide Antibiotics) Anaphylaxis, Hives, Other (See comments), Unknown and Urticaria Warfarin Unknown, Tinnitus and Rash Cefaclor Rash Throat swelling Erythromycin Unknown Social History Tobacco Use Smoking status: Former Current packs/day: 0.00 Average packs/day: 0.3 packs/day for 20.0 years (5.0 ttl pk-yrs) Types: Cigarettes Start date: 1979 Quit date: 2000 Years since quittin.5 Smokeless tobacco: Never Substance and Sexual Activity Drug use: No Sexual activity: Defer Alcohol Use: Unknown (02/25/2018) Received from [facility] AUDIT[facility]C Frequency of Alcohol Consumption: Monthly or less Average Number of Drinks: Not on file Frequency of Binge Drinking: Not on file Past Surgical History: Procedure Laterality Date APPENDECTOMY 1960 BREAST BIOPSY Left 1974 benign BREAST BIOPSY Left 1974 benign BREAST BIOPSY Left 1982 benign BREAST BIOPSY Left 1988 benign BREAST BIOPSY Right 08/02/2018 BREAST BIOPSY 2019 BREAST LUMPECTOMY Right 08/16/2018 CATARACT EXTRACTION 2010 CHOLECYSTECTOMY HIP ARTHROPLASTY Right 2010 Hip replacement HYSTERECTOMY 1974 OOPHORECTOMY 1981, 1988 with adhesiolysis TONSILLECTOMY 1949 Procedures Assessment/Plan 1. Pain in the groin, left (Primary) 2. Left leg swelling Results WELLS score 3 points - high risk for DVT Assessment & Plan Left leg pain Acute left leg pain with swelling and increased risk for DVT due to history of blood clots and prolonged sitting. Differential includes musculoskeletal strain, DVT, or hernia. - Refer to ER for Doppler ultrasound and blood work to rule out DVT. - Advise use of anti-inflammatory medication if musculoskeletal strain is confirmed. - Patient's daughter to take her to [place] [place] ED for further evaluation and workup Blood clots Increased risk for recurrence due to history and prolonged immobility. Currently on baby aspirin for prevention. - Continue baby aspirin as a preventive measure. Disposition Treatment plan including expectations, follow up, and return precautions discussed with patient/parent, verbalizes understanding. Medication dosage, use, and potential adverse reactions discussed with patient/parent. Advised to follow up with PCP if symptoms do not resolve as expected or sooner if condition worsens. Signs/symptoms warranting ER evaluation reviewed. Patient and/or guardian was given an opportunity to ask questions, questions answered. Bassem Melendrez NP This office note has been partially dictated using [employer] software, and as a result portions of the record may have been created with this software. Occasional wrong-word or '[id number]-n-[id number]' substitutions may have occurred due to the inherent limitations of voice recognition software. Read the chartcarefully and recognize, using context, where substitutions have occurred. documented in this encounter Plan of Treatment Not on file documented as of this encounter Visit Diagnoses Diagnosis Pain in the groin, left- Primary Left leg swelling documented in this encounter Historical Medications * This list may reflect changes made after this encounter. meloxicam (MOBIC) 7.5 mg tablet Take 1 tablet (7.5 mg total) by mouth daily 03/30/2023 latanoprost (XALATAN) 0.005 % ophthalmic solution INSTILL 1 DROP INTO BOTH EYES EVERY NIGHT gabapentin (NEURONTIN) 300 mg capsule Take 1 capsule (300 mg total) by mouth 3 (three) times a day 07/01/2023 added in this encounter Care Teams Fiscal Assistant Relationship Specialty Start Date End Date Prema Novak, LOG CLERK [facility] [place] [address] PCP - General Nurse Practitioner 07/16/18 Ninfa Bernal MD PhD [address] [place] [address] Radiation Oncologist Radiation Oncology 09/18/18 Yaritza Soriano MD [address] [place] [address] Surgeon Surgical Oncology 09/18/18 documented as of this encounter
--- OUTSIDE RECORDS SUMMARY | 2024-09-03 16:13 | XMS_ITS | Encounter Summary ---
Author Organization [facility] Address Formerly [facility] [place] [address] Care Team Providers Care Industrial Machinery Mechanic Name Role Phone Prema Novak Primary Care Provider [phone] Encounter Details Date Type Department Care Team ([facility] Contact Info) Description 12/28/2017 Abstract HEALTH INFO [...] mL documented in this encounter Care Teams Industrial Machinery Mechanic Relationship Specialty Start Date End Date Prema Novak FNP [address] [place] [id number] PCP - General NURSE PRACTITIONER 12/09/17 documented as of this encounter
--- OUTSIDE RECORDS SUMMARY | 2024-09-03 16:13 | XMS_ITS | Data Portability ---
Author Organization [facility], [address] [facility] ([place]) Address [address] [place] [address] Assessment Encounter Date Assessment Date Assessment LastModified by Organization Details LastModified Time 05/26/2024 05/26/2024 SUBJECTIVE: Ms. Gaston is now more than a decade out from right total hip arthroplasty performed by me in [place]. I last visited with her 11/27/2022. The patient feels well and is making good progress. She admits that the pain is better than it was before the surgery but she still has some right buttock pain as well as associated lower back pain. She rates her pain as 3 on a scale of 1-10. This was similar to the complaints that she had when she last visited with me in November 2022. However, at that time she was having pain that was 8-9 on a scale of 1-10. She was using Aleve for symptom relief and is now just using Tylenol. She does not take any kbon-tci-wtaiguo supplements. She has minimal radiation into the lower extremity. She denies any numbness or tingling. She does not visit with a sales operations specialist. The patient has been compliant with hip precautions and has been participating in the home exercise program. She has minimal complaint in the left hip. The patient denies any fever, chills, chest pain, shortness of breath, or calf pain. She reminded me that she lives in [place]. She presents today alone. OBJECTIVE: On clinical examination, there is a well-healed surgical scar about the right hip. The patient's demonstrates good range of motion of BOTH hips. She has no irritability with rotation of either hip. There is no significant erythema. There is expected amount of swelling and warmth at this time postoperatively. The patient has negative Stinchfield test. There is no irritability with hip range of motion. Calves are soft and nontender bilaterally. The patient has a negative Homans sign bilaterally. The patient is neurovascularly intact bilaterally. Leg lengths appear symmetric. She does have pain to palpation across the lumbar spine and paraspinal musculature. She has modest pain in the right sciatic notch. She also has a positive straight leg raise on the right. RADIOGRAPHS: X-rays were ordered, performed, and interpreted by me. A low AP pelvis, frog leg lateral, and cross table lateral of the hip show a cementless total hip arthroplasty. Implant is in good position and alignment. No evidence of subsidence. Interfaces appear to be stable. She does have some widening of the diaphysis which is unchanged from previous films. This is of uncertain clinical significance. Low AP pelvis and frog-leg lateral of the left hip demonstrate mild arthritis of the left hip that has now progressed from previous films. An official report is forthcoming and will be dictated separately. ASSESSMENT: 1.) Mild, minimally symptomatic primary localized osteoarthritis of the left hip. 2.) History of right total hip arthroplasty performed by myself in [place], [place] more than a decade ago. 3.) Bilateral lower extremity sciatica. This is the most likely etiology of her bilateral buttock pain. 4.) She lives in [place], [place]. PLAN: At this time postoperatively, the patient is doing very wel with her right hip and I did once again reassured her that her problems are related to her lumbar spine. The patient will continue with her home exercise program and continue activity to tolerance. I encouraged her to visit with her quality assurance technician for appropriate referral to a sales operations specialist. Perhaps she can find one closer to her home town of [place]. The patient will follow-up every 2 to 3 years with repeat x-rays and reevaluation. She will make me aware if she has any further symptoms in her left hip. I did previously talk to her about nutraceuticals but she is not currently taking them. I did remind the patient of lifetime dental prophylaxis precautions. [email or web address] Not available 05/27/2024 10:14:40 Plan of Treatment Reminders Order Date Submit Date Provider Last Modified By Organization Details Last Modified Time Details Appointments None record ed. Lab None record ed. Referral None record ed. Procedures None record ed. Surgeries None record ed. Imaging None record ed. Medication Orders None record ed. Patient TargetsNo targets recorded. Patient InstructionsNo instructions recorded. Reason for Referral None Reported. Results Created Date Observation Date Name Description Value Unit Range Abnormal Flag Note LastModifiedBy Organization Detail LastModifiedTime 05/28/19 25 05/26/2024 XR, hip + pelvi s, bilat eral, 3 or 4 view [facility] [address] [place] [address] Teleph one [phone] Name: Yin Gaston [id number] Exam Date: 2024 Age: 83 Physic errol: Valdemar song MD, Ariel : 1940 Examin ation: XR HIPS BILATE RAL 3-4 VWS ROUTIN E WITH PELVIS WHEN PERFOR MED EXAM: Low AP pelvis and 2 views of right hip. In additi on, the patien t has a frog-l eg latera l of the left hip. HISTOR Y: 1. Histor y of right total hip arthro plasty . 2. Persis tent left hip pain. FINDIN GS: AP pelvis and 2 views of the right hip are obtain ed reveal ing a press- fit total hip prosth esis. Alignm ent of the acetab ular cup is satisf actory . Likewi se the stem is in stable positi on. No eviden ce of loosen ing of any of these compon ents. The hip is concen trical ly reduce d. There is no eviden ce of peripr osthet ic fractu re. There is pelvis deform ity of the diaphy sis of the femur near the end of the prosth esis of undete rmined signif icance . The low AP pelvis and frog-l eg latera l left hip demons trates mild Left Hip Arthri tis as not progre ssed from previo us films 2022. IMPRES PAUL: 1. Satisf actory right total hip arthro plasty with additi onal findin gs as noted above. 2. Stable appear ing mild arthri tis of the left hip. Electr onical ly signed in [facility] by: Ariel Aldrich i, MD on:05/17 12:42 PM cc: Page PAGE 1 of NUMPAG ES 1 INTERFACE Sc Only - Sc Radiology [address] [place], [address], 05/27/2024 13:45:55 Result Notes Documentation Provider Name and Address Organization Details Recorded Time Xr, Hip + Pelvis, Bilateral, 3 Or 4 View : [facility] [address] [place] [address] Name: Shelly Gaston Exam Date: 05/26/2024 Age: 83 Physician: MD Pamela, Ariel : 1940 Examination: XR HIPS BILATERAL 3-4 VWS ROUTINE WITH PELVIS WHEN PERFORMED EXAM: Low AP pelvis and 2 views of right hip. In addition, the patient has a frog-leg lateral of the left hip. HISTORY: 1. History of right total hip arthroplasty. 2. Persistent left hip pain. FINDINGS: AP pelvis and 2 views of the right hip are obtained revealing a press-fit total hip prosthesis. Alignment of the acetabular cup is satisfactory. Likewise the stem is in stable position. No evidence of loosening of any of these components. The hip is concentrically reduced. There is no evidence of periprosthetic fracture. There is pelvis deformity of the diaphysis of the femur near the end of the prosthesis of undetermined significance. The low AP pelvis and frog-leg lateral left hip demonstrates mild Left Hip Arthritis as not progressed from previous films 11/27/2022. IMPRESSION: 1. Satisfactory right total hip arthroplasty with additional findings as noted above. 2. Stable appearing mild arthritis of the left hip. Electronically signed in [employer] by: Ariel Santiago MD on:05/27/2024 12:42 PM cc: Page PAGE 1 of NUMPAGES 1 Not Available [employer] 05/27/2024 13:45:55 Problems Name Problem SNOMED Code Status Onset Date Resolution Date Notes Provider Name and Address Organization Details Recorded Time Osteoarthri tis of left hip joint 0381858566601 08 Active 2024 Melanie Jamil [place], [place] - [facility] 16:57:11 Acquired unequal leg length 555863720 Active 2024 Ariel Santiago MD [address] [place], [address], [facility] 5 10:06:31 Lumbar radiculopat hy 319404049 Active 2024 Ariel Santiago MD [address], [place], [address], [facility] 5 10:06:45 Problem Notes None recorded. Medical Equipment None Reported. Allergies Allergen ID Allergen Name Allergen Category Reaction Reaction Severity Criticality Documentation Date Start Date Code Code System Note Provider Name and Address Organization Details Recorded Time 974612 morphine medicatio n Not available Not available Not available 03/16/20232017 7052 RxNorm Not Available [facility] 4 23:25:03 Medications Name Sig Start Date Stop Date Status Note LastModified by Organization Details LastModified Time latanoprost 0.005 % eye drops INSTILL 1 DROP INTO BOTH EYES EVERY DAY AT BEDTIME active Not Available Not Available No t Available Synthroid 112 mcg tablet TAKE 1 TABLET BY MOUTH EVERY MORNING active Not Available Not Available No t Available tamoxifen 20 mg tablet TAKE 1 TABLET BY MOUTH EVERY DAY active Not Available Not Available No t Available Vitals Date Recorded Body weight Body mass index (BMI) Body height Body temperature Provider Name and Address Organization Details Last Updated DateTime 05/26/2024 74586.92 g 33.3 kg/m2 162.56 cm 98.2 [degF] Yane Deutsch [facility] 05/26/2024 15:47:35 Social History None recorded. Functional Status None recorded. Mental Status None recorded. Family History Nothing Reported. Medical History No medical history recorded. Gynecological HistoryNo gynecological history recorded. Obstetrics History GPAL:G 0 P 0 0 0 0 Past Encounters Encounter ID Performer Location Encounter Start Date Encounter Closed Date Diagnosis/Indication Diagnosis SNOMED-CT Code Diagnosis ICD10 Code Diagnosis Note [id number] Ariel Santiago MD [facility] [address], [place] [address] 05/26/2024 15:01:08 05/27/2024 18:20:10 History of total replacement of right hip joint 1998497728 87067 Z96.641 Surgical follow-up 33218 4000 Z09 Osteoarthr itis of left hip joint 6768108826 16196 M16.12 Acquired u nequal leg length 137120658 M21.70 Lumbar radiculopathy 128 160418 M54.16 Health Concerns Section Related Observation LastModified by Organization Detai ls LastModified Time None Recorded Concern Status LastModified by Organization Details LastModified Time None Recorded Advance Directives Directive None Recorded Payers Insurance Date Sequence Insurance Name Policy Number Policy Pinzon Covered Member ID Pinzon Member ID Guarantor Name 05/30/2024 1 ESTEE ARNETTA - MEDICARE-RAILR OAD [employer] BOARD (MEDICARE) Shelly Gaston [id number] Shelly Gaston 07/01/2024 2 [employer] (MEDICARE SUPPLEMENT) Shelly [id number] Shelly Gaston 05/30/2024 [employer] - PLAN F (MEDICARE SUPPLEMENT) Shelly Gaston [id number] Shelly Gaston OBGyn Episode No OBEpisode recorded.
--- OUTSIDE RECORDS SUMMARY | 2024-09-03 16:13 | XMS_ITS | Clinical Summary ---
Author Organization [facility] Address [address] [place] [address] Phone Care Team Providers Care Edge Glue Machine Tender Name Role Phone Rayo Baez MD Unavailable [phone] Allergies Active Allergy Reactions Criticality Noted [...] on file Legal Sex Female 3:01 AM PICKLE SORTER Gender Identity Not on file Sexual Orientation Not on file Last Filed Vital Signs Vital Sign Reading Time Taken Comments Blood Pressure 128/82 07/15/2016 12:58 PM CDT Pulse 56 07/15/2016 12:58 PM CDT Temperature 36.7 C (98.1 F) 07/15/2016 12:58 PM CDT Respiratory Rate 16 07/15/2016 12:58 PM CDT Oxygen Saturation 98% 07/15/2016 12:58 PM CDT Inhaled Oxygen Concentration - - Weight 103 kg (227 lb) 07/15/2016 12:58 PM CDT Height 165.1 cm (5' 5) 07/15/2016 12:58 PM CDT Body Mass Index 37.77 07/15/2016 12:58 PM CDT Plan of Treatment Health Maintenance Due Date Last Done Comments Hepatitis C Virus (HCV) Screening 1940 Zoster Immunization (2 of 3) 03/26/2012 01/30/2012 Respiratory Syncytial Virus (RSV) Immunization (Adult) (1 - 1-dose 75+ series) 2017 SARS-COV-2 Immunization ( - 2023- season) 2023 Influenza Immunization (#1) 2024 09/0 10/2016, 10/24/2015, 11/27/2012 DTaP/Tdap/Td Immunization Discontinued 05/11/2015 Pneumococcal Immunization (5 0+ years) Completed 10/25/2016, 05/10/2014 Pneumococcal Immunization Combined Discontinued 10/25/2016, 05/10/2014 Hepatitis B Immunization Aged Out No longer eligible based on patient's age to complete this topic Human Papillomavirus (HPV) Immunization Aged Out No longer eligible based on patient's age to complete this topic Meningococcal Immunization (ACWY) Aged Out No longer eligible based on patient's age to complete this topic Rotavirus Immunization Aged Out No lo nger eligible based on patient's age to complete this topic Insurance [employer] SENIOR SUPPLEMENTAL MEDICARE RAILROAD Care Teams Edge Glue Machine Tender Relationship Specialty Start Date End Date Rayo Baez MD [address] [place] [address] 01/21/11
--- OUTSIDE RECORDS SUMMARY | 2024-09-03 16:13 | XMS_ITS | Clinical Summary ---
Author Organization [facility] Address 1 [place] [address] Care Team Providers Care Credit Support Specialist Name Role Phone Prema Novak NP Primary Care Provider + [phone] Ninfa Bernal MD PhD Unavailable [phone] Yaritza Soriano MD Unavailable Allergies Active Allergy Reactions Criticality Noted Date [...] h High 05/11/2015 Medications aspirin 81 mg tabletIndications:[facility] Take 81 mg by mouth every morning Active denosumab (PROLIA) 60 mg/mL syringeIndications: last dose 06/27/2018 Inject under the skin every 6 (six) months 10/02/19 18 Active levothyroxine (SYNTHROID) 137 mcg tablet Take 137 mcg by mouth order entry before breakfast 04/05/19 19 Active calcium citrate-vitamin D3 200 mg calcium -250 unit tablet 1 tablet Active biotin 1 mg tablet Take 1,000 mcg by mouth 3 (three) times a day Active clindamycin (CLEOCIN) 300 mg capsule TAKE 1 CAPSULE BY MOUTH THREE TIMES A DAY FOR 10 DAYS 0 11/05/19 19 Active influenza trivalent 5143-7952 (FLUAD) 45 mcg (15 mcg x 3)/0.5 [...] breast 1 Personal history of irradiation 12/10/2018 FPC (current) use of s elective estrogen receptor modulators (serms) 12/10/2018 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 Cancer Staging:Clinical:Stage 0(cTis (DCIS), cN0, cM0) - Signed by Mynor Ann MD on 09/18/2018 Pathologic:Stage Unknown(pTis (DCIS), pNX, cM0, ER+, RI+, HER2: Unknown) - Signed by Mynor Ann MD on 09/18/2018 Overview (08/05/2018): Added automatically from request for surgery [id number] Encounters Date Type Department Care Team Description 09/03/2024 3:45 PM CDT Office Visit [facility] Care at [address] [address] Bassem Melendrez NP Pain in the groin, left (Primary Dx); Left leg swelling from Last 3 Months Immunizations Immunization Administration Dates Next Due Influenza, Quadrivalent, Hig h Dose, Preservative Free, Intrr 10/04/2019 Influenza, Trivalent, Adjuva nted, Intramuscular 10/01/2018 Influenza, Trivalent, High D ose, Split, Preservative Free, Intramuscular 09/25/2023,11/03/2017,11/02/2017,10/24,10/23/2015,12/01/2014 Influenza, Trivalent, Preser vative Free, Intramuscular 11/27/2012 Influenza, Unspecified 10/06/2022,2021,10/16/2020,10/25,10/24/2015 Pneumococcal Conjugate PCV 13 10/24/2016 Pneumococcal Polysaccharide PPV23 11/03/2017,,05/10/2014 Tdap 05/11/2015 ZOSTER LIVE 01/30/2012 ZOSTER Recombinant 02/19/2020,10/04/2019 Surgical History Surgery Date Site/Laterality Comments TONSILLECTOMY [...] 165.1 cm (5' 5) 12/25/2021 9:05 AM MATHEMATICS INSTRUCTOR Body Mass Index 32.62 12/25/2021 9:05 AM MATHEMATICS INSTRUCTOR Plan of Treatment Health Maintenance Due Date Last Done Comments Depression Screening 1942 Fall Risk Assessment 1942 Osteoporosis Screening-Bone Density Scan 1942 Hepatitis B Screening 1960 Well Visit 65+ 06/23/2007 Covid-19 Vaccine (3 - Modern a risk series) 09/02/2021 08/05/2021, 01/13/2021, 05/08/2020, Additional history exists Influenza Vaccine (#1) 2024 4, 10/06/2022, 11/05/2021, Additional history exists DTaP/Tdap/Td Vaccine (2 - Td or Tdap) 05/10/2025 05/11/2015 Pneumococcal vaccine 65+ Completed 018, 11/02/2017, 10/24/2016, Additional history exists Zoster Vaccine Completed 02/19/2020, 09/16, 01/30/2012 Insurance MEDICARE RAILROAD AETNA SENIOR SUPPLEMENT MEDICARE RAILROAD AETNA SENIOR SUPPLEMENT MEDICARE RAILROAD AETNA SENIOR SUPPLEMENT Advance Directives For more information, please contact: [phone] * Full Code (Latest Code Status on File) Date Activated Date Inactivated Comments 09/14/2017 11:54 AM 09/14/2017 4:15 PM Care Teams Credit Support Specialist Relationship Specialty Start Date End Date Prema Novak NP [address] [place] [address] PCP - General Nurse Practitioner 07/16/18 Ninfa Bernal MD PhD [facility] [place] [address] Radiation Oncologist Radiation Oncology 09/18/18 Yaritza Soriano MD [address] [place] [address] Surgeon Surgical Oncology 09/18/18
[2024-09-03 16:38] VITALS: BP 126/92; PULSE 71; RESP 20; TEMP 36.3; O2SAT 98
[2024-09-03 18:55] LABS: Hematocrit 38.5 % (37.0-47.0); Hemoglobin 12.4 g/dL (12.0-15.0); Immature Granulocyte Percent A 0.1 % (0-0.5); Lymphocytes Absolute Auto 2.54 K/mm3 (0.9-3.2); Mean Corpuscular HGB Conc 32.2 g/dl (32-36); Mean Corpuscular Hemoglobin 28.9 pg (26-34); Mean Corpuscular Volume 89.7 fl (80-100); Nucleated Red Blood Cells Absolute Auto 0.000 K/mm3 (0.0-0.012); Nucleated Red Blood Cells Perc 0.0 % (0.0-0.2); Platelet Count Result 246 k/mm3 (150-375); Red Blood Count 4.29 M/mm3 (4.2-5.4); White Blood Count 8.6 K/mm3 (4.5-10.0)
--- OUTSIDE RECORDS SUMMARY | 2024-09-03 19:04 | XMS_ITS | Clinical Summary ---
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
--- OUTSIDE RECORDS SUMMARY | 2024-09-03 19:04 | XMS_ITS ---
Author Organization [facility] Address 1 [place] [address] Care Team Providers Care Research Chemical Engineer Name Role Phone Prema Novak NP Primary Care Provider + [phone] Ninfa Bernal MD PhD Unavailable [phone] Yaritza Soriano MD Unavailable [phone] Active Problems Problem Noted Date Diagnosed Date Acquired unequal leg length 05/27/2024 Lumbar radiculopathy 05/27/2024 Osteoarthritis of left hip 05/24/2024 Secondary hypercoagulable state 09/25/2020 Encounter for follow-up exam ination after completed treatment for conditions other than malignant neoplasm 12/10/2018 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 Past Treatment and Therapy Plans No past plan information found. Radiation Treatments * Course C1 R BRS HI 2019 10/06/2018 - 10/29/2018 Treatment Period Energy Fraction Dose Fractions Total Dose Plans Planned RT BRST:1 10/08/2018 - 10/29/2018 266 14 / 3,724 RT BRST 10/06/2018 - 10/07/2018 266 2 / 4,256 Reference Points Delivered BROWN DPV 10/06/2018 - 10/29/2018 4,256
--- OUTSIDE RECORDS SUMMARY | 2024-09-03 19:04 | XMS_ITS | Encounter Summary ---
Author Organization [facility] Address [address] [place] [address] Care Team Providers Care Food Technician Name Role Phone Prema Novak Primary Care Provider [phone] Encounter Details Date Type Department Care Team [...] Description 10/18/2024 11:30 AM CDT Office Visit [facility] Oncology and Hematology - [place] [address] [place] [address] Rayo Parker MD [address] [address] documented as of this encounter Visit Diagnoses Not on filedocumented in this encounter Care Teams Food Technician Relationship Specialty Start Date End Date Prema Novak FNP [address] [place] [address] PCP - General Nurse Practitioner Family 09/25/20 documented as of this encounter
--- OUTSIDE RECORDS SUMMARY | 2024-09-03 19:04 | XMS_ITS | Encounter Summary ---
Author Organization [facility] Address [address] [place] [address] Care Team Providers Care Quality Rep Name Role Phone Prema Novak NP Primary Care Provider + [phone] Ninfa Bernal MD PhD Unavailable [phone] Yaritza Soriano MD Unavailable Reason for Visit * Reason Comments Leg Pain Closer to groin area Encounter Details Date Type Department Care Team (Late st Contact Info) Description 09/03/2024 3:45 PM CDT Office Visit [facility] Medical [facility]ient [facility] at [address] [address] Bassem Melendrez NP [address] [place] [address] [address] [place] [address] Pain in the groin, left [...] Body Mass Index 32.62 12/25/2021 9:05 AM PRINCIPAL IOS DEVELOPER documented in this encounter Progress Notes * [...] nursing note reviewed. Exam conducted with a costing manager present (pts daughter). Constitutional: General: She is [...] by mouth, Disp: , Rfl: influenza trivalent [id number] (FLUAD) 45 mcg (15 mcg x 3)/0.5 mL syringe, TO BE ADMINISTERED BY PHARMACIST FOR IMMUNIZATION, Disp: , Rfl: latanoprost (XALATAN) 0.005 % ophthalmic solution, INSTILL 1 DROP INTO BOTH EYES EVERY NIGHT, Disp:, Rfl: levothyroxine (SYNTHROID) 137 mcg tablet, Take 137 mcg by mouth plant maintenance worker before breakfast, Disp: , Rfl: levothyroxine (SYNTHROID) [...] Defer Alcohol Use: Unknown (02/25/2018) Received from [facility] Frequency of Alcohol Consumption: Monthly or [...] - Patient's daughter to take her to [facility] ED for further evaluation and workup Blood [...] office note has been partially dictated using Appsfire software, and as a result portions of the record may have been created with this software. Occasional wrong-word or '[id number]' substitutions may have occurred due to the [...] 07/01/2023 added in this encounter Care Teams Quality Rep Relationship Specialty Start Date End Date Prema Novak, FLAGGER [facility] [place] [address] PCP - General Nurse Practitioner 07/16/18 Ninfa Bernal MD PhD [address] [place] [address] Radiation Oncologist Radiation Oncology 09/18/18 Yaritza Soriano MD [address] [place] [address] Surgeon Surgical Oncology 09/18/18 documented as of this encounter
--- OUTSIDE RECORDS SUMMARY | 2024-09-03 19:04 | XMS_ITS | Referral Summary ---
Author Organization [facility] Address [address] [place] [address] Care Team Providers Care Lumber Planer Name Role Phone Prema Novak NP Primary Care Provider + [phone] Ninfa Bernal MD PhD Unavailable [phone] Yaritza Soriano MD Unavailable [phone] Encounters Date Type Department Care Team Description 09/03/2024 3:45 PM CDT Office Visit [facility] Medical [facility] Convenient Care at [address] [address] Bassem Melendrez NP Pain in [...] h High 05/11/2015 Medications aspirin 81 mg tabletIndications:[facility] Take 81 mg by mouth every morning Active denosumab (PROLIA) 60 mg/mL syringeIndications: last dose 06/27/2018 Inject under the skin every 6 (six) months 10/02/19 18 Active levothyroxine (SYNTHROID) 137 mcg tablet Take 137 mcg by mouth medical billing service before breakfast 04/05/19 19 Active calcium citrate-vitamin D3 200 mg calcium -250 unit tablet 1 tablet Active biotin 1 mg tablet Take 1,000 mcg by mouth 3 (three) times a day Active clindamycin (CLEOCIN) 300 mg capsule TAKE 1 CAPSULE BY MOUTH THREE TIMES A DAY FOR 10 DAYS 0 11/05/19 19 Active influenza trivalent [id number] (FLUAD) 45 mcg (15 mcg x 3)/0.5 [...] breast 1 Personal history of irradiation 12/10/2018 longterm (current) use of s elective estrogen receptor modulators (serms) 12/10/2018 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 Cancer Staging:Clinical:Stage 0(cTis (DCIS), cN0, cM0) - Signed by Mynor Ann MD on 09/18/2018 Pathologic:Stage Unknown(pTis (DCIS), pNX, cM0, ER+, AR+, HER2: Unknown) - Signed by Mynor Ann MD on 09/18/2018 Overview (08/05/2018): Added automatically from request for surgery [id number] Immunizations Immunization Administration Dates Next Due Influenza, [...] 165.1 cm (5' 5) 12/25/2021 9:05 AM GRINDER NEEDLE TIP Body Mass Index 32.62 12/25/2021 9:05 AM GRINDER NEEDLE TIP Plan of Treatment Not on file Insurance MEDICARE RAILROAD AETNA SENIOR SUPPLEMENT MEDICARE RAILROAD T SENIOR SUPPLEMENT MEDICARE RAILROAD T SENIOR SUPPLEMENT Advance Directives For more information, please contact: [phone] * Full Code (Latest Code Status on File) Date Activated Date Inactivated Comments 09/14/2017 11:54 AM 09/14/2017 4:15 PM Care Teams Lumber Planer Relationship Specialty Start Date End Date Prema Novak NP [address] [place] [address] PCP - General Nurse Practitioner 07/16/18 Ninfa Bernal MD PhD [address] [place] [address] Radiation Oncologist Radiation Oncology 09/18/18 Yaritza Soriano MD [address] [place] [address] Surgeon Surgical Oncology 09/18/18
--- OUTSIDE RECORDS SUMMARY | 2024-09-03 19:04 | XMS_ITS | Clinical Summary ---
Author Organization [facility] Address [address] [place] [address] Care Team Providers Care Senior Network Security Engineer Name Role Phone Prema Novak NP Primary Care Provider + [phone] Ninfa Bernal MD PhD Unavailable [phone] Yaritza Soriano MD Unavailable [phone] Allergies Active Allergy Reactions Criticality Noted Date [...] h High 05/11/2015 Medications aspirin 81 mg tabletIndications:[facility] health Take 81 mg by mouth every morning Active denosumab (PROLIA) 60 mg/mL syringeIndications: last dose 06/27/2018 Inject under the skin every 6 (six) months 10/02/19 18 Active levothyroxine (SYNTHROID) 137 mcg tablet Take 137 mcg by mouth gripper installer before breakfast 04/05/19 19 Active calcium citrate-vitamin D3 200 mg calcium -250 unit tablet 1 tablet Active biotin 1 mg tablet Take 1,000 mcg by mouth 3 (three) times a day Active clindamycin (CLEOCIN) 300 mg capsule TAKE 1 CAPSULE BY MOUTH THREE TIMES A DAY FOR 10 DAYS 0 11/05/19 19 Active influenza trivalent 7087-5962 (FLUAD) 45 mcg (15 mcg x 3)/0.5 [...] 09/18/2018 Pathologic:Stage Unknown(pTis (DCIS), pNX, cM0, ER+, VT+, HER2: Unknown) - Signed by Mynor Ann MD on 09/18/2018 Overview (08/05/2018): Added automatically from request for surgery [id number] Encounters Date Type Department Care Team Description 09/03/2024 3:45 PM CDT Office Visit [facility] Medical Group [facility]venient Care at [address] [address] Bassem Melendrez NP Pain in [...] 165.1 cm (5' 5) 12/25/2021 9:05 AM FARMWORKER PULLET FARM Body Mass Index 32.62 12/25/2021 9:05 AM FARMWORKER PULLET FARM Plan of Treatment Health Maintenance Due Date [...] Advance Directives For more information, please contact: [phone] * Full Code (Latest Code Status on File) Date Activated Date Inactivated Comments 09/14/2017 11:54 AM 09/14/2017 4:15 PM Care Teams Senior Network Security Engineer Relationship Specialty Start Date End Date Prema Novak NP [address] [place] [address] PCP - General Nurse Practitioner 07/16/18 Ninfa Bernal MD PhD [facility] [place] [address] Radiation Oncologist Radiation Oncology 09/18/18 Yaritza Soriano MD [address] [place] [address] Surgeon Surgical Oncology 09/18/18
--- OUTSIDE RECORDS SUMMARY | 2024-09-03 19:04 | XMS_ITS | Clinical Summary ---
Author Organization [facility] Address [address] [place] [address] Care Team Providers Care Director Of Emergency Nursing Name Role Phone Rayo Parker MD Primary Care Provider [phone] Source Comments [facility],non-owned Affiliates and Associated Physician Practices is amultiple site organization consisting of ambulatory clinics and hospital sitesin [place], [place], [place] and [place]. This disclosure is being madepursuant to the Care Everywhere program and may not contain all information available regarding this patient. Last updated 17.[facility] Allergies Active Allergy Reactions Criticality Noted Date [...] on file Legal Sex Female 4:34 PM CARPET BINDER Gender Identity Not on file Sexual Orientation Not on file Last Filed Vital Signs Vital Sign Reading Time Taken Comments Blood Pressure - - Pulse - - Temperature - - Respiratory Rate - - Oxygen Saturation - - Inhaled Oxygen Concentration - - Weight 89.4 kg (197 lb) 04/20/2023 11:32 AM CARPET BINDER Height 157.5 cm (5' 2) 04/20/2023 11:32 AM CARPET BINDER Body Mass Index 36.03 04/20/2023 11:32 AM CARPET BINDER Plan of Treatment Health Maintenance Due Date [...] Payer ( fective 2007-Present) Name:Shelly Gaston Member ID:[id number] Relation to Subscriber:Self Name:Shelly Gaston Subscriber ID:[id number] Payer ID:Not on file Group ID:Not on file Type:Medicare Address: [address] MEDICARE Care Teams Director Of Emergency Nursing Relationship Specialty Start Date End Date Rayo Parker MD [address] [address] PCP - General Medical Oncology 03/30/23
--- OUTSIDE RECORDS SUMMARY | 2024-09-03 19:04 | XMS_ITS | Clinical Summary ---
Author Organization [facility] Address [address] [place] [address] Care Team Providers Care Analytics Analyst Name Role Phone Prema Novak Primary Care Provider [phone] Allergies Active Allergy Reactions Criticality Noted Date [...] estrogen receptor positive, unspecified site of breast ([facility]/HCC [facility]/HCC) 12/03/2023 Family history of rheumatoid arthritis 3 History of breast cancer 09/25/2020 skilled nursing (current) use of s elective estrogen receptor [...] Overview: Added automatically from request for surgery [id number] Skin tag 10/01/2017 12/03/2023 Leg cramps 08/03/2017 11/07/2021 Colon cancer screening 06/26/201710/27 GERD (gastroesophageal reflux disease) 06/26/2017 12/03/2023 Low vitamin D level 06/26/2017 12/03/19 24 Palpitations 06/26/2017 12/03/2023 Encounter for preventive health examination 06/21/2017 10/28/2019 Heartburn 04/08/2016 11/07/2021 Coagulation disorder (HHS/HCC) 12/20/2009 11/07/2021 DVT (deep venous thrombosis) ([facility]) 12/20/2009 11/07/2021 Immunizations Immunization Administration Dates Next [...] MCG/ 0.5 ML DOSE 05/08/2020,03/29/2020 MODERNA COVID-19 (CORE INSPECTOR JANICE SYLVIE), MRNA, LNP-S, PF, 50 MCG/ 0.25 ML DOSE 08/05/2021,01/13/2021 Pneumococcal (Pneumovax 23) 11/02/2017, 5 Pneumococcal (Prevnar 13) 10/25/2016 Shingrix 02/19/2020,10/04/2019 Tdap (Boostrix) 05/11/2015 Tdap (Generic) 05/11/2015 Zoster (Zostavax) [address] Unt/0.65Ml 01/30/2012 Family History Medical History Relation [...] Annual Medicare Wellness Visit 06/23/2007 PHQ-2 (Physician [place]) 02/17/2024 11/03/2022 COVID-19 Vaccine ( season) 2024 [...] Most Recently Relevant to Health Maintenance Insurance [place] MEDICARE [facility] Care Teams Analytics Analyst Relationship Specialty Start Date End Date Prema Novak FNP [address] [place] [address] PCP - General NURSE PRACTITIONER 12/09/17
--- OUTSIDE RECORDS SUMMARY | 2024-09-03 19:04 | XMS_ITS | Clinical Summary ---
[facility] Address [address] [place] [address] Care Team Providers Care Crime Laboratory Analyst Name Role Phone Prema Novak [facility] Primary Care Provider [phone] Allergies Active Allergy Reactions Criticality Noted Date [...] Comments Blood Pressure 117/81 03/22/2024 11:54 AM FURNACE CHARGER Pulse 70 03/22/2024 11:54 AM FURNACE CHARGER Temperature 36.2 C (97.2 F) 03/22/2024 11:54 AM FURNACE CHARGER Respiratory Rate 16 08/13/2023 1:59 PM CDT Oxygen Saturation 95% 03/22/2024 11:54 AM FURNACE CHARGER Inhaled Oxygen Concentration - - Weight 88.2 kg (194 lb 6.4 oz) 03/22/2024 11:54 AM FURNACE CHARGER Height 162.6 cm (5' 4) 09/04/2021 1:01 PM CDT Body Mass Index 33.37 09/04/2021 1:01 PM CDT Plan of Treatment Upcoming Encounters Date Type Department Care Team (Late st Contact Info) Description 10/18/2024 11:30 AM CDT Office Visit [facility] Oncology and Hematology - [place] [address] [facility] [address] [place] [address] Rayo Parker MD [address] [facility] [address] [place] [address] Health Maintenance Due Date Last [...] Colonography Q 5 years Discontinued Insurance MEDICARE RAstartuply AETNA MEDICARE SUPP AESSI AETNA MEDICARE SUPP AESSI Care Teams Crime Laboratory Analyst Relationship Specialty Start Date End Date Prema Novak FNP [address] [place] [phone] PCP - General Nurse Practitioner Family 09/25/20
--- OUTSIDE RECORDS SUMMARY | 2024-09-03 19:04 | XMS_ITS | Encounter Summary ---
Author Organization [facility] Address [facility] [place] [address] Care Team Providers Care Supervisor Stone Name Role Phone Prema Novak Primary Care Provider [phone] Encounter Details Date Type Department Care Team ([facility] Contact Info) Description 12/28/2017 Abstract HEALTH INFO [...] mL documented in this encounter Care Teams Supervisor Stone Relationship Specialty Start Date End Date Prema Novak FNP [address] [place] [address] PCP - General NURSE PRACTITIONER 12/09/17 documented as of this encounter
[2024-09-03 19:05] LABS: Alanine Aminotransferase 11 U/L (6-35); Albumin Level 3.8 g/dL (3.5-5.1); Alkaline Phosphatase 39 U/L (38-126); Anion Gap 5 mmol/L (4-12); Aspartate Amino Transferase 25 U/L (14-36); Bilirubin,Total 0.7 mg/dL (0.2-1.3); Blood Urea Nitrogen 9 mg/dL (7-17); Calcium 9.2 mg/dL (8.4-10.2); Carbon Dioxide 27 mmol/L (22-30); Chloride 106 mmol/L (98-107); Estimated CRCL calculation 44 ml/min; Estimated Glomerular Filt Rate 58; Glucose 91 mg/dL (65-110); Potassium 4.3 mmol/L (3.4-5.0); Sodium 138 mmol/L (137-145); Total Protein 7.2 g/dL (6.3-8.2)
[2024-09-03 19:13] LABS: INR 1.0; Prothrombin Time 13.7 Seconds (11.1-14.7)
[2024-09-03 19:14] LABS: Partial Thromboplastin Time 26.0 Seconds (22.3-36.8)
--- NOTE | 2024-09-03 20:18 | ED.GENADULT ---
HPI - General Adult General Chief complaint: Extremity Problem,Nontraumatic <Solo Henderson MD - Last Filed: 09/04/24 18:08> Stated complaint: L leg swelling/pain <Solo Henderson MD - Last Filed: 09/04/24 18:08> Time Seen by Provider: 09/03/24 18:02 <Solo Henderson MD - Last Filed: 09/04/24 18:08> History of Present Illness HPI narrative: 84-year-old female presents to the emergency department for left lower leg edema and pain. Patient did have an extended car trip last week and has since had left groin pain and swollen ankle on the left. Patient also does feel pain in her left groin and feels that her left thigh is swollen as well. Patient does have prior history of blood clot secondary to traumatic injury and to hip surgery. Patient is not currently on any anticoagulation. Patient denies any associated chest pain or shortness of breath. <Solo Henderson MD - Last Filed: 09/04/24 18:08> Related Data Home medications: Home Medications ?Medication ?Instructions ?Recorded ?Confirmed ?Last Taken ?Type denosumab 60 mg/mL subcutaneous 60 mg subcut [id number] 10/29/19 10/29/19 Unknown History syringe (Prolia) levothyroxine 137 mcg tablet 137 mcg PO DAILY 10/29/19 10/29/19 Unknown History (Synthroid) tamoxifen 20 mg tablet 20 mg PO DAILY 10/29/19 10/29/19 Unknown History aspirin 81 mg chewable tablet 81 mg PO DAILY 10/31/19 Unknown History biotin 5,000 mcg disintegrating 10,000 mcg PO DAILY 10/31/19 Unknown History tablet cholecalciferol (vitamin D3) 50 50 mcg PO DAILY 10/31/19 Unknown History mcg (2,000 unit) capsule (Vitamin D3) <Solo Henderson MD - Last Filed: 09/04/24 18:08> Allergies/adverse reactions: Allergies Allergy/AdvReac Type Severity Reaction Status Date / Time acetaminophen (From Vicodin) Allergy Mild Hallucinati Verified 09/03/24 16:43 ng hydrocodone (From Vicodin) Allergy Mild Hallucinati Verified 09/03/24 16:43 ng morphine Allergy Unknown Chest Pain Verified 09/03/24 16:43 Penicillins Allergy Unknown Other Verified 09/03/24 16:43 Sulfa (Sulfonamide Allergy Unknown Rash Verified 09/03/24 16:43 Antibiotics) <Solo Henderson MD - Last Filed: 09/04/24 18:08> Review of Systems Review of Systems: All systems reviewed & are unremarkable except as noted in HPI and below <Solo Henderson MD - Last Filed: 09/04/24 18:08> PMFSH Past Medical History Medical History: Medical History (Updated 09/04/24 @ 00:00 by Dee Iglesias) Hypothyroid Osteoporosis Breast cancer <Solo Henderson MD - Last Filed: 09/04/24 18:08> Surgical History Surgical History: Surgical History (Updated 10/29/19 @ 14:02 by Lzu Elena Avery, OPERATIONS LIEUTENANT) H/O: hysterectomy H/O arthroplasty History of cholecystectomy History of appendectomy <Solo Henderson MD - Last Filed: 09/04/24 18:08> Family History Family History: Family History Mother Patient's mother is , Onset Age: 93 Grandparent Cerebrovascular accident, Onset Age: 89 Family history of malignant neoplasm Family history of chronic obstructive pulmonary disease, Onset Age: 90 <Solo Henderson MD - Last Filed: 09/04/24 18:08> Social History Social History: Social History Smoking status: Former smoker Smoking end date: 02/16/99 Alcohol intake: current <Solo Henderson MD - Last Filed: 09/04/24 18:08> Exam Narrative: APPEARANCE: Well appearing, no pain, no distress, well-nourished. HEAD: normocephalic, atraumatic. EYES: PERRLA/EOMI, conjunctivae clear. NOSE: Normal no drainage EARS:TMS clear with good light reflex. THROAT: Pharynx clear, no exudate. NECK: Supple. No adenopathy, no masses. RESPIRATORY: Airway patent, respirations nonlabored. Clear to auscultation bilaterally, no rales, rhonchi, wheezing. CARDIOVASCULAR: Regular rate and rhythm without murmurs rubs or gallops. ABDOMINAL: Soft, nontender, nondistended, normal bowel sounds MUSCULOSKELETAL: Edema of the left lower extremity NEURO: Alert. Cranial nerves II through XII intact. Good gait. Good coordination SKIN: Mild pallor of the left leg with intact distal pulse, warm to touch <Solo Henderson MD - Last Filed: 09/04/24 18:08> Course Course Emergency Course: Patient signed over to me pending CT angiography of the lower extremity for potential occlusive disorder. Her laboratory studies are all normal without any concerning findings and she has normal vital signs and an unremarkable vascular assessment examination with warm well-perfused extremities. CT angiography shows no stenosis or occlusive disease, she has some calcifications moderately in the left common iliac artery but otherwise remaining arterial structures are widely patent with no stenosis or large vessel occlusions. No joint effusions, osseous structures are normal, no soft tissue infections fluids or masses. Given patient's multiple unremarkable imaging studies and normal vital signs she can be safely discharged with outpatient follow-up. <Kamran Francis MD - Last Filed: 09/04/24 04:23> Vital Signs Vital signs: Vital Signs Temperature 97.4 F L 09/03/24 16:38 Pulse Rate 09/03/24 16:38 Respiratory Rate 09/03/24 16:38 Blood Pressure 126/92 H 09/03/24 16:38 Pulse Oximetry 98 09/03/24 16:38 Oxygen Delivery Room Air 09/03/24 16:38 Temperature 98.4 F 09/03/24 22:38 Pulse Rate 87 09/03/24 22:38 Respiratory Rate 18 09/03/24 22:38 Blood Pressure 128/71 09/03/24 22:38 Pulse Oximetry 96 09/03/24 22:38 Oxygen Delivery Room Air 09/03/24 16:38 <Solo Henderson MD - Last Filed: 09/04/24 18:08> Vital Signs Temperature 97.4 F L 09/03/24 16:38 Pulse Rate 71 09/03/24 16:38 Respiratory Rate 20 09/03/24 16:38 Blood Pressure 126/92 H 09/03/24 16:38 Pulse Oximetry 98 09/03/24 16:38 Oxygen Delivery Room Air 09/03/24 16:38 Temperature 98.4 F 09/03/24 22:38 Pulse Rate 87 09/03/24 22:38 Respiratory Rate 18 09/03/24 22:38 Blood Pressure 128/71 09/03/24 22:38 Pulse Oximetry 96 09/03/24 22:38 Oxygen Delivery Room Air 09/03/24 16:38 <Kamran Francis MD - Last Filed: 09/04/24 04:23> Medical Decision Making MDM Narrative Medical decision making narrative: 84-year-old female presents emergency department for evaluation for swelling of the left lower extremity. Patient is currently afebrile with no leukocytosis and hemoglobin of 12.4. Patient has an INR of 1.0. CMP has no acute abnormalities. Ultrasound was negative for DVT. Due to concern for vascular issue CTA the left lower extremity was ordered. This is pending at time of sign-out. <Solo Henderson MD - Last Filed: 09/04/24 18:08> Differential Diagnosis Differential Diagnosis: DVT, arterial blockage <Solo Henderson MD - Last Filed: 09/04/24 18:08> Vital Signs Vital Signs: Vital Signs Temperature 97.4 F L 09/03/24 16:38 Pulse Rate 71 09/03/24 16:38 Respiratory Rate 09/03/24 16:38 Blood Pressure 126/92 H 09/03/24 16:38 Pulse Oximetry 98 09/03/24 16:38 Oxygen Delivery Room Air 09/03/24 16:38 Temperature 98.4 F 09/03/24 22:38 Pulse Rate 87 09/03/24 22:38 Respiratory Rate 18 09/03/24 22:38 Blood Pressure 128/71 09/03/24 22:38 Pulse Oximetry 96 09/03/24 22:38 Oxygen Delivery Room Air 09/03/24 16:38 <Solo Henderson MD - Last Filed: 09/04/24 18:08> Vital Signs Temperature 97.4 F L 09/03/24 16:38 Pulse Rate 71 09/03/24 16:38 Respiratory Rate 09/03/24 16:38 Blood Pressure 126/92 H 09/03/24 16:38 Pulse Oximetry 98 09/03/24 16:38 Oxygen Delivery Room Air 09/03/24 16:38 Temperature 98.4 F 09/03/24 22:38 Pulse Rate 87 09/03/24 22:38 Respiratory Rate 18 09/03/24 22:38 Blood Pressure 128/71 09/03/24 22:38 Pulse Oximetry 96 09/03/24 22:38 Oxygen Delivery Room Air 09/03/24 16:38 <Kamran Francis MD - Last Filed: 09/04/24 04:23> Lab Data Result diagrams: 09/03/24 18:49 09/03/24 18:49 <Solo Henderson MD - Last Filed: 09/04/24 18:08> Labs: Lab Results 09/03/24 Range/Units 18:49 WBC 8.6 (4.5-10.0) K/mm3 RBC 4.29 (4.2-5.4) M/mm3 Hgb 12.4 (12.0-15.0) g/dL Hct 38.5 (37.0-47.0) % MCV 89.7 (80-100) fl MCH 28.9 (26-34) pg MCHC 32.2 (32-36) g/dl RDW 13.2 (11.5-14.5) % Plt Count 246 (150-375) k/mm3 MPV 10.4 (7.4-10.4) fl Immature Gran % (Auto) 0.1 (0-0.5) % Neut % (Auto) 56.8 (45.5-73.1) % Lymph % (Auto) 29.5 (18.3-44.2) % Cherokee % (Auto) 9.2 H (2.6-8.5) % Eos % (Auto) 4.1 (0-4.4) % Baso % (Auto) 0.3 (0.2-1.2) % Lymph # (Auto) 2.54 (0.9-3.2) K/mm3 Cherokee # (Auto) 0.8 H (0.1-0.6) K/mm3 Eos # (Auto) 0.4 H (0-0.3) K/mm3 Baso # (Auto) 0.0 (0.0-0.1) K/mm3 Abs Immat Gran (auto) 0.01 (0.00-0.031) K/mm3 Absolute Neuts (auto) 4.9 (1.3-6.7) K/mm3 Absolute Nucleated RBC 0.000 (0.0-0.012) K/mm3 Nucleated RBC % 0.0 (0.0-0.2) % PT 13.7 (11.1-14.7) Seconds INR 1.0 APTT 26.0 (22.3-36.8) Seconds Sodium 138 (137-145) mmol/L Potassium 4.3 (3.4-5.0) mmol/L Chloride 106 (98-107) mmol/L Carbon Dioxide 27 (22-30) mmol/L Anion Gap 5 (4-12) mmol/L BUN 9 (7-17) mg/dL Creatinine 0.92 (0.7-1.0) mg/dL Estim Creat Clear Calc 44 ml/min Estimated GFR 58 L (59 - ) Glucose 91 (65-110) mg/dL Calcium 9.2 (8.4-10.2) mg/dL Total Bilirubin 0.7 (0.2-1.3) mg/dL AST 25 (14-36) U/L ALT 11 (6-35) U/L Alkaline Phosphatase 39 (38-126) U/L Total Protein 7.2 (6.3-8.2) g/dL Albumin 3.8 (3.5-5.1) g/dL <Solo Henderson MD - Last Filed: 09/04/24 18:08> Lab Results 09/03/24 Range/Units 18:49 WBC 8.6 (4.5-10.0) K/mm3 RBC 4.29 (4.2-5.4) M/mm3 Hgb 12.4 (12.0-15.0) g/dL Hct 38.5 (37.0-47.0) % MCV 89.7 (80-100) fl MCH 28.9 (26-34) pg MCHC 32.2 (32-36) g/dl RDW 13.2 (11.5-14.5) % Plt Count 246 (150-375) k/mm3 MPV 10.4 (7.4-10.4) fl Immature Gran % (Auto) 0.1 (0-0.5) % Neut % (Auto) 56.8 (45.5-73.1) % Lymph % (Auto) 29.5 (18.3-44.2) % Cherokee % (Auto) 9.2 H (2.6-8.5) % Eos % (Auto) 4.1 (0-4.4) % Baso % (Auto) 0.3 (0.2-1.2) % Lymph # (Auto) 2.54 (0.9-3.2) K/mm3 Cherokee # (Auto) 0.8 H (0.1-0.6) K/mm3 Eos # (Auto) 0.4 H (0-0.3) K/mm3 Baso # (Auto) 0.0 (0.0-0.1) K/mm3 Abs Immat Gran (auto) 0.01 (0.00-0.031) K/mm3 Absolute Neuts (auto) 4.9 (1.3-6.7) K/mm3 Absolute Nucleated RBC 0.000 (0.0-0.012) K/mm3 Nucleated RBC % 0.0 (0.0-0.2) % PT 13.7 (11.1-14.7) Seconds INR 1.0 APTT 26.0 (22.3-36.8) Seconds Sodium 138 (137-145) mmol/L Potassium 4.3 (3.4-5.0) mmol/L Chloride 106 (98-107) mmol/L Carbon Dioxide 27 (22-30) mmol/L Anion Gap 5 (4-12) mmol/L BUN 9 (7-17) mg/dL Creatinine 0.92 (0.7-1.0) mg/dL Estim Creat Clear Calc 44 ml/min Estimated GFR 58 L (59 - ) Glucose 91 (65-110) mg/dL Calcium 9.2 (8.4-10.2) mg/dL Total Bilirubin 0.7 (0.2-1.3) mg/dL AST 25 (14-36) U/L ALT 11 (6-35) U/L Alkaline Phosphatase 39 (38-126) U/L Total Protein 7.2 (6.3-8.2) g/dL Albumin 3.8 (3.5-5.1) g/dL <Kamran Francis MD - Last Filed: 09/04/24 04:23> Discharge Plan Discharge Clinical Impression: Left leg pain, Left leg swelling <Solo Henderson MD - Last Filed: 09/04/24 18:08> Patient Disposition: Home <Solo Henderson MD - Last Filed: 09/04/24 18:08> Condition: Stable <Solo Henderson MD - Last Filed: 09/04/24 18:08> Instructions: Antibiotic Form <Solo Henderson MD - Last Filed: 09/04/24 18:08> Additional Instructions: Your ultrasound shows no blood clots and your CT scan with angiography of the arteries show widely patent arteries without any blood clots, arterial insufficiency or any acute abnormalities. Follow-up with your regular doctor, return with any emergent concerns. You can wear compression stockings for the swelling, elevation above the level of the heart at night, ice, anti-inflammatories for symptom control. <Solo Henderson MD - Last Filed: 09/04/24 18:08> Patient Language: Kuwaiti <Solo Henderson MD - Last Filed: 09/04/24 18:08> Prescriptions: No Action levothyroxine [Synthroid] 137 mcg tablet 137 mcg PO DAILY tamoxifen 20 mg tablet 20 mg PO DAILY Prolia 60 mg/mL Syringe 60 mg SUBCUT [id number] aspirin 81 mg tablet,chewable 81 mg PO DAILY biotin 5,000 mcg tablet,disintegrating 10,000 mcg PO DAILY cholecalciferol (vitamin D3) [Vitamin D3] 50 mcg (2,000 unit) capsule 50 mcg PO DAILY clindamycin HCl 150 mg capsule 450 mg PO Q8H 3 Days Qty: 27 0RF <Solo Henderson MD - Last Filed: 09/04/24 18:08> Follow-up/Referrals: RAI,TAMIKA SUGGS [Primary Care Provider] - <Solo Henderson MD - Last Filed: 09/04/24 18:08> Time of Disposition: 22:39 <Solo Henderson MD - Last Filed: 09/04/24 18:08> 22:39 <Kamran Francis MD - Last Filed: 09/04/24 04:23>
[2024-09-03 22:38] VITALS: BP 128/71; PULSE 87; RESP 18; TEMP 36.9; O2SAT 96
== END 2024-09-03 22:52 | disposition home or self-care (01) ==
PROVIDERS: Emergency Provider Emergency Medicine; PCP Nurse Practitioner Family
DX: R60.0 Localized edema (principal); M79.605 Pain in left leg; E03.9 Hypothyroidism, unspecified; M81.0 Age-related osteoporosis without current pathological fracture; Z85.3 Personal history of malignant neoplasm of breast; Z90.710 Acquired absence of both cervix and uterus; Z90.49 Acquired absence of other specified parts of digestive tract; Z96.60 Presence of unspecified orthopedic joint implant; Z86.718 Personal history of other venous thrombosis and embolism; Z87.891 Personal history of nicotine dependence; Z79.82 Long term (current) use of aspirin; Z79.899 Other long term (current) drug therapy
CPT/HCPCS: 36415; 73706; 80053; 85025; 85610; 85730; 93971; 99284; Q9967

== ENCOUNTER 2024-09-08 09:51 | Outpatient (CLI) | payer MEDICARE, SELFPAY ==
--- OUTSIDE RECORDS SUMMARY | 2024-09-08 09:57 | XMS_ITS | Clinical Summary ---
Author Organization [facility] Ta bryant Roni Address [address] [place] [address] Care Team Providers Care Bar Attendant Name Role Phone Prema Novak [facility] Primary Care Provider [phone] Allergies Active Allergy Reactions Criticality Noted Date [...] Encounters Date Type Department Care Team Description 09/06/2024 Telephone [facility] Oncology and Hematology - [address] [address] Rayo Parker MD Med Change Request 08/31/2024 External Device Data STL ABSTRACTION Provider, [...] Comments Blood Pressure 117/81 03/22/2024 11:54 AM COMMUNITY DIETITIAN Pulse 70 03/22/2024 11:54 AM COMMUNITY DIETITIAN Temperature 36.2 C (97.2 F) 03/22/2024 11:54 AM COMMUNITY DIETITIAN Respiratory Rate 16 08/13/2023 1:59 PM CDT Oxygen Saturation 95% 03/22/2024 11:54 AM COMMUNITY DIETITIAN Inhaled Oxygen Concentration - - Weight 88.2 kg (194 lb 6.4 oz) 03/22/2024 11:54 AM COMMUNITY DIETITIAN Height 162.6 cm (5' 4) 09/04/2021 1:01 PM CDT Body Mass Index 33.37 09/04/2021 1:01 PM CDT Plan of Treatment Upcoming Encounters Date Type Department Care Team (Late st Contact Info) Description 10/18/2024 11:30 AM CDT Office Visit [facility] Oncology and Hematology - [address] [address] [place] [address] Rayo Parker MD [address] [facility] [address] [place] [address] Health Maintenance Due Date Last Done Comments Traditional Medicare (ACO) A nnual Wellness Visit 1959 RSV VACCINE (60+ or ) (1 - 1-dose 75+ series) 2017 COVID-19 Vaccine (2023-2 5 season) 2023 11/15/2021, 08/05/2021, 01/13/2021, Additional history exists INFLUENZA VACCINE (#1) 2024 , 11/04/2021, 10/16/2020, Additional history exists DTAP/TDAP/TD VACCINES [...] Colonography Q 5 years Discontinued Insurance MEDICARE RAILROAD [employer]NA MEDICARE SUPP AESSI MEDICARE RAILROAD AETNA MEDICARE SUPP AESSI Care Teams Bar Attendant Relationship Specialty Start Date End Date Prema Novak FNP [address] [place] [phone] PCP - General Nurse Practitioner Family 09/25/20
--- OUTSIDE RECORDS SUMMARY | 2024-09-08 09:57 | XMS_ITS | Clinical Summary ---
Author Organization [facility] [employer] Address [address] [place] [address] Care Team Providers Care Tactical Air Control Party Name Role Phone Rayo Parker MD Primary Care Provider [phone] Source Comments [facility] [employer],non-owned Affiliates and Associated Physician Practices is amultiple site organization consisting of ambulatory clinics and hospital sitesin [place], [place], [place] and [place]. This disclosure is being madepursuant to the Care Everywhere program and may not contain all information available regarding this patient. Last updated 17.[facility] [employer] Allergies Active Allergy Reactions Criticality Noted Date [...] on file Legal Sex Female 4:34 PM TRANSMISSION ASSEMBLER Gender Identity Not on file Sexual Orientation Not on file Last Filed Vital Signs Vital Sign Reading Time Taken Comments Blood Pressure - - Pulse - - Temperature - - Respiratory Rate - - Oxygen Saturation - - Inhaled Oxygen Concentration - - Weight 89.4 kg (197 lb) 04/20/2023 11:32 AM TRANSMISSION ASSEMBLER Height 157.5 cm (5' 2) 04/20/2023 11:32 AM TRANSMISSION ASSEMBLER Body Mass Index 36.03 04/20/2023 11:32 AM TRANSMISSION ASSEMBLER Plan of Treatment Health Maintenance Due Date [...] Payer ( fective 2007-Present) Name:Shelly Gaston Member ID:[id number] Relation to Subscriber:Self Name:Shelly Gaston Subscriber ID:[id number] Payer ID:Not on file Group ID:Not on file Type:Medicare Address: [address] MEDICARE Care Teams Tactical Air Control Party Relationship Specialty Start Date End Date Rayo Parker MD [address] [address] PCP - General Medical Oncology 03/30/23
--- OUTSIDE RECORDS SUMMARY | 2024-09-08 09:57 | XMS_ITS | Data Portability ---
Author Organization [facility], [address] ([place]) Address [address] [place] [address] Assessment Encounter Date Assessment Date Assessment LastModified by Organization Details LastModified Time 05/26/2024 05/26/2024 SUBJECTIVE: Ms. Gaston is now more than a decade out from right total hip arthroplasty performed by me in [place]. I last visited with her 11/27/2022. The [...] using Tylenol. She does not take any hftf-lwf-[id number] supplements. She has minimal radiation into the lower extremity. She denies any numbness or tingling. She does not visit with a process laboratory specialist. The patient has been compliant with hip precautions and has been participating in the home exercise program. She has minimal complaint in the left hip. The patient denies any fever, chills, chest pain, shortness of breath, or calf pain. She reminded me that she lives in [place]. She presents today alone. OBJECTIVE: On clinical [...] total hip arthroplasty performed by myself in [place], [place] more than a decade ago. 3.) Bilateral lower extremity sciatica. This is the most likely etiology of her bilateral buttock pain. 4.) She lives in [place], [place]. PLAN: At this time postoperatively, the patient is doing very wel with her right hip and I did once again reassured her that her problems are related to her lumbar spine. The patient will continue with her home exercise program and continue activity to tolerance. I encouraged her to visit with her ship erector for appropriate referral to a process laboratory specialist. Perhaps she can find one closer to her home town of [place]. The patient will follow-up every 2 to [...] s, bilat eral, 3 or 4 view [facility] [address] [place] [address] Teleph one [phone] Name: Yin Gaston [id number] Exam Date: 2024 Age: 83 Physic errol: [...] left hip. Electr onical ly signed in [facility] by: Ariel Alrdich i, MD on:05/17 12:42 PM cc: Page PAGE 1 of NUMPAG ES 1 INTERFACE Sc Only - Sc Radiology [address] [place], [address], 05/27/2024 13:45:55 Result Notes Documentation Provider Name and Address Organization Details Recorded Time Xr, Hip + Pelvis, Bilateral, 3 Or 4 View : [facility] [address] [place] [address] Name: Shelly Gaston Exam Date: 05/26/2024 Age: [...] Time Osteoarthri tis of left hip joint 4272467090736 08 Active 2024 Melanie Jamil [place], [place] - [facility] 16:57:11 Acquired unequal leg length 395228588 Active 2024 Ariel Santiago MD [address] [place], [address], [facility] 5 10:06:31 Lumbar radiculopat hy 641563360 Active 2024 Ariel Santiago MD [address], [place], [address], [facility] 5 10:06:45 Problem Notes None recorded. Medical Equipment None Reported. Allergies Allergen ID Allergen Name Allergen Category Reaction Reaction Severity Criticality Documentation Date Start Date Code Code System Note Provider Name and Address Organization Details Recorded Time 294144 morphine medicatio n Not available Not available Not available 03/16/20232017 7052 RxNorm Not Available [facility] 4 23:25:03 Medications Name Sig Start Date [...] Address Organization Details Last Updated DateTime 05/26/2024 47109.92 g 33.3 kg/m2 162.56 cm 98.2 [degF] Yane Deutsch [facility] 05/26/2024 15:47:35 Social History None recorded. Functional Status None recorded. Mental Status None recorded. Family History Nothing Reported. Medical History No medical history recorded. Gynecological HistoryNo gynecological history recorded. Obstetrics History GPAL:G 0 P 0 0 0 0 Past Encounters Encounter ID Performer Location Encounter Start Date Encounter Closed Date Diagnosis/Indication Diagnosis SNOMED-CT Code Diagnosis ICD10 Code Diagnosis Note [id number] Ariel Santiago MD [facility] [address], [place] [address] 05/26/2024 15:01:08 05/27/2024 18:20:10 History of total replacement of right hip joint 5517202843 16079 Z96.641 Surgical follow-up 27666 4000 Z09 Osteoarthr itis of left hip joint 7320675680 73308 M16.12 Acquired u nequal leg length 505191062 M21.70 Lumbar radiculopathy 128 252076 M54.16 Health Concerns Section Related Observation LastModified by Organization Detai ls LastModified Time None Recorded Concern Status LastModified by Organization Details LastModified Time None Recorded Advance Directives Directive None Recorded Payers Insurance Date Sequence Insurance Name Policy Number Policy Pinzon Covered Member ID Pinzon Member ID Guarantor Name 05/30/2024 1 ESTEE ARNETTA - MEDICARE-RAILR OAD HALF-WAY BOARD (MEDICARE) Shelly Gaston [id number] Shelly Gaston 07/01/2024 2 AETNA (MEDICARE SUPPLEMENT) Shelly [id number] Shelly Gaston 05/30/2024 [employer] [place] [employer] - PLAN F (MEDICARE SUPPLEMENT) Shelly Gaston [id number] Shelly Gaston OBGyn Episode No OBEpisode recorded.
--- OUTSIDE RECORDS SUMMARY | 2024-09-08 09:57 | XMS_ITS | Clinical Summary ---
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
--- OUTSIDE RECORDS SUMMARY | 2024-09-08 09:57 | XMS_ITS | Referral Summary ---
Author Organization [facility] Address 1 [place] [address] Care Team Providers Care Inpatient Pharmacist Name Role Phone Prema Novak NP Primary Care Provider + [phone] Ninfa Bernal MD PhD Unavailable [phone] Yaritza Soriano MD Unavailable [phone] Encounters Date Type Department Care Team Description 09/03/2024 3:45 PM CDT Office Visit [facility] at [address] [address] Bassem Melendrez NP Pain in [...] h High 05/11/2015 Medications aspirin 81 mg tabletIndications:[facility] Take 81 mg by mouth every morning Active denosumab (PROLIA) 60 mg/mL syringeIndications: last dose 06/27/2018 Inject under the skin every 6 (six) months 10/02/19 18 Active levothyroxine (SYNTHROID) 137 mcg tablet Take 137 mcg by mouth heading repairer before breakfast 04/05/19 19 Active calcium citrate-vitamin D3 200 mg calcium -250 unit tablet 1 tablet Active biotin 1 mg tablet Take 1,000 mcg by mouth 3 (three) times a day Active clindamycin (CLEOCIN) 300 mg capsule TAKE 1 CAPSULE BY MOUTH THREE TIMES A DAY FOR 10 DAYS 0 11/05/19 19 Active influenza trivalent 6536-4826 (FLUAD) 45 mcg (15 mcg x 3)/0.5 [...] breast 1 Personal history of irradiation 12/10/2018 halfway (current) use of s elective estrogen receptor modulators (serms) 12/10/2018 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 Cancer Staging:Clinical:Stage 0(cTis (DCIS), cN0, cM0) - Signed by Mynor Ann MD on 09/18/2018 Pathologic:Stage Unknown(pTis (DCIS), pNX, cM0, ER+, [place]+, HER2: Unknown) - Signed by Mynor Ann MD on 09/18/2018 Overview (08/05/2018): Added automatically from request for surgery [id number] Immunizations Immunization Administration Dates Next Due Influenza, [...] 165.1 cm (5' 5) 12/25/2021 9:05 AM CONTROL INTEGRATION ENGINEER Body Mass Index 32.62 12/25/2021 9:05 AM CONTROL INTEGRATION ENGINEER Plan of Treatment Not on file Insurance MEDICARE RAILROAD [employer] SENIOR SUPPLEMENT MEDICARE RAILROAD T SENIOR SU[place]LE[place] [address] T SENIOR SUPPLEMENT Advance Directives For more information, please contact: [phone] * Full Code (Latest Code Status on File) Date Activated Date Inactivated Comments 09/14/2017 11:54 AM 09/14/2017 4:15 PM Care Teams Inpatient Pharmacist Relationship Specialty Start Date End Date Prema Novak NP [address] [place] [address] PCP - General Nurse Practitioner 07/16/18 Ninfa Bernal MD PhD [address] [place] [address] Radiation Oncologist Radiation Oncology 09/18/18 Yaritza Soriano MD [address] [place] [address] 07141 Surgeon Surgical Oncology 09/18/18
--- OUTSIDE RECORDS SUMMARY | 2024-09-08 09:57 | XMS_ITS ---
Author Organization [facility] Address 1 [place] [address] Care Team Providers Care Vice President For Instruction Name Role Phone Prema Novak NP Primary Care Provider + [phone] Ninfa Bernal MD PhD Unavailable [phone] Yaritza Soriano MD Unavailable [phone] Active Problems Problem Noted Date Diagnosed Date Acquired unequal leg length 05/27/2024 Lumbar radiculopathy 05/27/2024 Osteoarthritis of left hip 05/24/2024 Secondary hypercoagulable state 09/25/2020 Encounter for follow-up exam ination after completed treatment for conditions other than malignant neoplasm 12/10/2018 Personal history of in-situ neoplasm of breast 1 Personal history of irradiation 12/10/2018 senior living (current) use of s elective estrogen receptor modulators (serms) 12/10/2018 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
--- OUTSIDE RECORDS SUMMARY | 2024-09-08 09:57 | XMS_ITS | Clinical Summary ---
Author Organization [facility] Address 1 [place] [address] Care Team Providers Care Oven Unloader Name Role Phone Prema Novak NP Primary Care Provider + [phone] Ninfa Bernal MD PhD Unavailable [phone] Yaritza Soriano MD Unavailable [phone] Allergies Active Allergy Reactions Criticality Noted Date [...] mcg tablet Take 137 mcg by mouth truck loader before breakfast 04/05/19 19 Active calcium citrate-vitamin D3 200 mg calcium -250 unit tablet 1 tablet Active biotin 1 mg tablet Take 1,000 mcg by mouth 3 (three) times a day Active clindamycin (CLEOCIN) 300 mg capsule TAKE 1 CAPSULE BY MOUTH THREE TIMES A DAY FOR 10 DAYS 0 11/05/19 19 Active influenza trivalent 2049-8775 (FLUAD) 45 mcg (15 mcg x 3)/0.5 [...] breast 1 Personal history of irradiation 12/10/2018 custodial (current) use of s elective estrogen receptor modulators (serms) 12/10/2018 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 Cancer Staging:Clinical:Stage 0(cTis (DCIS), cN0, cM0) - Signed by Mynor Ann MD on 09/18/2018 Pathologic:Stage Unknown(pTis (DCIS), pNX, cM0, ER+, [place]+, HER2: Unknown) - Signed by Mynor Ann MD on 09/18/2018 Overview (08/05/2018): Added automatically from request for surgery [id number] Encounters Date Type Department Care Team Description 09/03/2024 3:45 PM CDT Office Visit [facility] at [address] [address] Bassem Melendrez NP Pain in [...] 165.1 cm (5' 5) 12/25/2021 9:05 AM BELL SPINNER SOUSAPHONES Body Mass Index 32.62 12/25/2021 9:05 AM BELL SPINNER SOUSAPHONES Plan of Treatment Health Maintenance Due Date [...] Advance Directives For more information, please contact: [phone] * Full Code (Latest Code Status on File) Date Activated Date Inactivated Comments 09/14/2017 11:54 AM 09/14/2017 4:15 PM Care Teams Oven Unloader Relationship Specialty Start Date End Date Prema Novak NP [address] [place] [address] PCP - General Nurse Practitioner 07/16/18 Ninfa Bernal MD PhD [facility] [place] [address] Radiation Oncologist Radiation Oncology 09/18/18 Yaritza Soriano MD [address] [place] [address] Surgeon Surgical Oncology 09/18/18
[2024-09-08 11:09] LABS: Free T3 3.19 pg/mL (2.34-5.61); Free T4 Free Thyroxine 1.84 ng/dL (0.78-2.19)
[2024-09-08 11:18] LABS: Thyroid Stimulating Hormone 1.100 uIU/mL (0.465-4.680)
== END 2024-09-08 09:52 | disposition home or self-care (01) ==
PROVIDERS: PCP Nurse Practitioner Family; Visit Provider Nurse Practitioner Family
DX: E03.9 Hypothyroidism, unspecified (principal)
CPT/HCPCS: 36415; 84439; 84443; 84481

== ENCOUNTER 2024-10-10 09:11 | Outpatient (CLI) | payer MEDICARE, SELFPAY ==
--- NOTE | ~2024-10-10 | MM_ITS ---
EXAMINATION: MM screening bean BI w mary HISTORY: Screening TECHNIQUE: Craniocaudal and mediolateral oblique 3-D tomosynthesis images were obtained and synthetic 2-D images were generated. CAD analysis was submitted and interpreted. COMPARISON: Comparison to multiple prior studies sequentially, with oldest reviewed study dated 05/31/2018. BREAST PARENCHYMAL COMPOSITION: There are scattered areas of fibroglandular density. FINDINGS: There is no evidence of suspicious mass, calcification, or architectural distortion to suggest malignancy in either breast. IMPRESSION: 1. No mammographic evidence of malignancy. 2. Recommend routine screening mammography in one year. BI-RADS Category 1: Negative Reviewed, dictated and finalized at location B.
--- OUTSIDE RECORDS SUMMARY | 2024-10-10 09:46 | XMS_ITS | Clinical Summary ---
Author Organization [facility] Address 1 [place] [address] Care Team Providers Care Oil Tank Car Cleaner Name Role Phone Prema Novak NP Primary Care Provider + [phone] Ninfa Bernal MD PhD Unavailable [phone] Yaritza Soriano MD Unavailable [phone] Allergies Active Allergy Reactions Criticality Noted Date [...] h High 05/11/2015 Medications aspirin 81 mg tabletIndications:[facility] Take 81 mg by mouth every morning Active denosumab (PROLIA) 60 mg/mL syringeIndications: last dose 06/27/2018 Inject under the skin every 6 (six) months 10/02/19 18 Active levothyroxine (SYNTHROID) 137 mcg tablet Take 137 mcg by mouth outside maintenance worker before breakfast 04/05/19 19 Active calcium citrate-vitamin D3 200 mg calcium -250 unit tablet 1 tablet Active biotin 1 mg tablet Take 1,000 mcg by mouth 3 (three) times a day Active clindamycin (CLEOCIN) 300 mg capsule TAKE 1 CAPSULE BY MOUTH THREE TIMES A DAY FOR 10 DAYS 0 11/05/19 19 Active influenza trivalent 6954-9617 (FLUAD) 45 mcg (15 mcg x 3)/0.5 [...] breast 1 Personal history of irradiation 12/10/2018 long-term (current) use of s elective estrogen receptor modulators (serms) 12/10/2018 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 Cancer Staging:Clinical:Stage 0(cTis (DCIS), cN0, cM0) - Signed by Mynor Ann MD on 09/18/2018 Pathologic:Stage Unknown(pTis (DCIS), pNX, cM0, ER+, [place]+, HER2: Unknown) - Signed by Mynor Ann MD on 09/18/2018 Overview (08/05/2018): Added automatically from request for surgery [id number] Encounters Date Type Department Care Team Description 09/29/2024 10:13 AM CDT - 09/29/2024 11:59 PM CDT Hospital Encounter [facility] [address] [place] [address] Discharge Disposition: Discharge to home or self care 09/29/2024 [facility] [address] [facility] Floor 1 [place] [address] Kelley Kirkland RN 09/03/2024 3:45 PM CDT Office Visit [facility] at [address] [address] Bassem Melendrez NP Pain in [...] 165.1 cm (5' 5) 12/25/2021 9:05 AM TOP CARRIER Body Mass Index 32.62 12/25/2021 9:05 AM TOP CARRIER Plan of Treatment Health Maintenance Due Date Last Done Comments Depression Screening 1942 Fall Risk Assessment 1940 Osteoporosis Screening-Bone Density Scan 1942 Hepatitis B Screening 1960 Well Visit 65+ 06/23/2007 Covid-19 Vaccine (3 - Modern a risk series) 09/02/2021 08/05/2021, 01/13/2021, 05/08/2020, Additional history exists Influenza Vaccine (#1) 2024 , 10/06/2022, 11/05/2021, Additional history exists DTaP/Tdap/Td Vaccine (2 - Td or Tdap) 05/10/2025 05/11/2015 Pneumococcal vaccine 65+ Completed 018, 11/02/2017, 10/24/2016, Additional history exists Zoster Vaccine Completed 02/19/2020, 09/16, 01/30/2012 Procedures Procedure Name Priority Date/Time Associated Diagnosis Comments CT BODY OUTSIDE REFERENCE Routine 09/29/2024 10:13 AM CDT from Last 3 Months Results * CT Body Outside Reference (09/29/2024 10:13 AM CDT) Impressions [facility] - 09/29/2024 10:13 AM CDT These images are for Reference purposes only and have not been reviewed by [facility] Radiology. There will be no report generated by a [facility] Radiologist. Narrative [facility] - 09/29/2024 10:13 AM CDT EXAMINATION: Images For Reference Purposes Only us David Collins MD IMG CT PROCEDURES Final Result [facility] from Last 3 Months Insurance MEDICARE RAILROAD T SENIOR SUPPLEMENT MEDICARE RAILROAD T SENIOR SUPPLEMENT MEDICARE RAILROAD [employer] SENIOR SUPPLEMENT Advance Directives For more information, please contact: [phone] * Full Code (Latest Code Status on File) Date Activated Date Inactivated Comments 09/14/2017 11:54 AM 09/14/2017 4:15 PM Care Teams Oil Tank Car Cleaner Relationship Specialty Start Date End Date Prema Novak NP [address] [place] [address] PCP - General Nurse Practitioner 07/16/18 Ninfa Bernal MD PhD [address] [place] [address] Radiation Oncologist Radiation Oncology 09/18/18 Yaritza Soriano MD [address] [place] [address] Surgeon Surgical Oncology 09/18/18
--- OUTSIDE RECORDS SUMMARY | 2024-10-10 09:46 | XMS_ITS | Clinical Summary ---
Author Organization [facility] Address [address] [place] [address] Care Team Providers Care Pipe Fitter Apprentice Name Role Phone Rayo Parker MD Primary Care Provider Source Comments [facility],non-owned Affiliates and Associated Physician Practices is amultiple site organization consisting of ambulatory clinics and hospital sitesin [place], [place], [place] and [place]. This disclosure is being madepursuant to the Care Everywhere program and may not contain all information available regarding this patient. Last updated 17.[facility] Allergies Active Allergy Reactions Criticality Noted Date [...] on file Legal Sex Female 4:34 PM MAIL DISTRIBUTION CLERK Gender Identity Not on file Sexual Orientation Not on file Last Filed Vital Signs Vital Sign Reading Time Taken Comments Blood Pressure - - Pulse - - Temperature - - Respiratory Rate - - Oxygen Saturation - - Inhaled Oxygen Concentration - - Weight 89.4 kg (197 lb) 04/20/2023 11:32 AM MAIL DISTRIBUTION CLERK Height 157.5 cm (5' 2) 04/20/2023 11:32 AM MAIL DISTRIBUTION CLERK Body Mass Index 36.03 04/20/2023 11:32 AM MAIL DISTRIBUTION CLERK Plan of Treatment Health Maintenance Due Date [...] Payer ( fective 2007-Present) Name:Shelly Gaston Member ID:[id number] Relation to Subscriber:Self Name:Shelly Gaston Subscriber ID:[id number] Payer ID:Not on file Group ID:Not on file Type:Medicare Address: [address] MEDICARE Care Teams Pipe Fitter Apprentice Relationship Specialty Start Date End Date Rayo Parker MD [address] [address] PCP - General Medical Oncology 03/30/23
--- OUTSIDE RECORDS SUMMARY | 2024-10-10 09:46 | XMS_ITS | Clinical Summary ---
Author Organization [facility] Address [address] [place] [address] Care Team Providers Care Director Of Retail Marketing Name Role Phone Prema Novak [facility] Primary Care Provider [phone] Allergies Active Allergy Reactions Criticality Noted Date [...] Encounters Date Type Department Care Team Description 10/04/2024 External Device Data STL ABSTRACTION Provider, Abstract 09/21/2024 External Device Data STL ABSTRACTION Provider, Abstract 09/06/2024 Telephone [facility] Oncology and Hematology - [place] [address] [address] Rayo Parker MD Med Change [...] Comments Blood Pressure 117/81 03/22/2024 11:54 AM STAPLING MACHINE OPERATOR Pulse 70 03/22/2024 11:54 AM STAPLING MACHINE OPERATOR Temperature 36.2 C (97.2 F) 03/22/2024 11:54 AM STAPLING MACHINE OPERATOR Respiratory Rate 16 08/13/2023 1:59 PM CDT Oxygen Saturation 95% 03/22/2024 11:54 AM STAPLING MACHINE OPERATOR Inhaled Oxygen Concentration - - Weight 88.2 kg (194 lb 6.4 oz) 03/22/2024 11:54 AM STAPLING MACHINE OPERATOR Height 162.6 cm (5' 4) 09/04/2021 1:01 PM CDT Body Mass Index 33.37 09/04/2021 1:01 PM CDT Plan of Treatment Upcoming Encounters Date Type Department Care Team (Late st Contact Info) Description 10/18/2024 11:30 AM CDT Office Visit [facility] Oncology and Hematology - [place] [address] [facility] [address] [place] [address] Rayo Parker MD [address] [facility] [address] [place] [address] Health Maintenance Due Date Last [...] RAILROAD [employer]ETNA MEDICARE SUPP AESSI Care Teams Director Of Retail Marketing Relationship Specialty Start Date End Date Prema Novak FNP [address] [place] [address] PCP - General Nurse Practitioner Family 09/25/20
--- OUTSIDE RECORDS SUMMARY | 2024-10-10 09:46 | XMS_ITS ---
Author Organization [facility] Address 1 [place] [address] Care Team Providers Care Printed Circuit Boards Router Name Role Phone Prema Novak NP Primary Care Provider + [phone] Ninfa Bernal MD PhD Unavailable [phone] Yaritza Soriano MD Unavailable [phone] Active Problems Problem Noted Date Diagnosed Date Acquired unequal leg length 05/27/2024 Lumbar radiculopathy 05/27/2024 Osteoarthritis of left hip 05/24/2024 Secondary hypercoagulable state 09/25/2020 Encounter for follow-up exam ination after completed treatment for conditions other than malignant neoplasm 12/10/2018 Personal history of in-situ neoplasm of breast 1 Personal history of irradiation 12/10/2018 FDC (current) use of s elective estrogen receptor modulators (serms) 12/10/2018 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 Cancer Staging:Clinical:Stage 0(cTis (DCIS), cN0, cM0) - Signed by Mynor Ann MD on 09/18/2018 Pathologic:Stage Unknown(pTis (DCIS), pNX, cM0, ER+, [place]+, HER2: Unknown) - Signed by Mynor Ann MD on 09/18/2018 Overview (08/05/2018): Added automatically from request for surgery [id number] Current Treatment and Therapy Plans No current plan information found. Past Treatment and Therapy Plans No past plan information found. Radiation Treatments * Course C1 R BRS AL 2019 10/06/2018 - 10/29/2018 Treatment Period Energy Fraction Dose Fractions Total Dose Plans Planned RT BRST:1 10/08/2018 - 10/29/2018 266 14 / 3,724 RT BRST 10/06/2018 - 10/07/2018 266 2 / 4,256 Reference Points Delivered BROWN DPV 10/06/2018 - 10/29/2018 4,256
== END 2024-10-10 09:12 | disposition home or self-care (01) ==
PROVIDERS: PCP Nurse Practitioner Family; Visit Provider Internal Medicine Hematology & Oncology
DX: Z12.31 Encounter for screening mammogram for malignant neoplasm of breast (principal)
CPT/HCPCS: 77063; 77067

== ENCOUNTER 2024-12-01 08:37 | Outpatient (CLI) | payer MEDICARE, SELFPAY ==
[2024-12-01 08:52] LABS: Hematocrit 43.1 % (37.0-47.0); Hemoglobin 13.6 g/dL (12.0-15.0); Immature Granulocyte Percent A 0.2 % (0-0.5); Lymphocytes Absolute Auto 2.00 K/mm3 (0.9-3.2); Mean Corpuscular HGB Conc 31.6 g/dl (32-36); Mean Corpuscular Hemoglobin 28.6 pg (26-34); Mean Corpuscular Volume 90.7 fl (80-100); Nucleated Red Blood Cells Absolute Auto 0.000 K/mm3 (0.0-0.012); Nucleated Red Blood Cells Perc 0.0 % (0.0-0.2); Platelet Count Result 266 k/mm3 (150-375); Red Blood Count 4.75 M/mm3 (4.2-5.4); White Blood Count 6.3 K/mm3 (4.5-10.0)
--- OUTSIDE RECORDS SUMMARY | 2024-12-01 08:54 | XMS_ITS | Clinical Summary ---
Author Organization [facility] Address [address] [place] [address] Care Team Providers Care Bailer Operators Supervisor Name Role Phone Prema Novak NP Primary Care Provider + [phone] Ninfa Bernal MD PhD Unavailable [phone] Yaritza Soriano MD Unavailable [phone] Allergies Active Allergy Reactions Criticality Noted Date [...] h High 05/11/2015 Medications aspirin 81 mg tabletIndications:[facility] Take 81 mg by mouth every morning Active denosumab (PROLIA) 60 mg/mL syringeIndications: last dose 06/27/2018 Inject under the skin every 6 (six) months 10/02/19 18 Active levothyroxine (SYNTHROID) 137 mcg tablet Take 137 mcg by mouth director of housing and energy services before breakfast 04/05/19 19 Active calcium citrate-vitamin D3 200 mg calcium -250 unit tablet 1 tablet Active biotin 1 mg tablet Take 1,000 mcg by mouth 3 (three) times a day Active clindamycin (CLEOCIN) 300 mg capsule TAKE 1 CAPSULE BY MOUTH THREE TIMES A DAY FOR 10 DAYS 0 11/05/19 19 Active influenza trivalent 7624-3529 (FLUAD) 45 mcg (15 mcg x 3)/0.5 [...] breast 1 Personal history of irradiation 12/10/2018 flow nurse (current) use of s elective estrogen receptor modulators (serms) 12/10/2018 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 Cancer Staging:Clinical:Stage 0(cTis (DCIS), cN0, cM0) - Signed by Mynor Ann MD on 09/18/2018 Pathologic:Stage Unknown(pTis (DCIS), pNX, cM0, ER+, [place]+, HER2: Unknown) - Signed by Mynor Ann MD on 09/18/2018 Overview (08/05/2018): Added automatically from request for surgery [id number] Encounters Date Type Department Care Team Description 09/29/2024 10:13 AM CDT - 09/29/2024 11:59 PM CDT Hospital Encounter [facility] [address] [place] [address] Discharge Disposition: Discharge to home or self care 09/29/2024 [facility] [address] [facility] Floor 1 [place] [address] Kelley Kirkland RN 09/03/2024 3:45 PM CDT Office Visit [facility] Convenient Care at [address] [address] Bassem Melendrez NP Pain in [...] 165.1 cm (5' 5) 12/25/2021 9:05 AM SENIOR NET WEB DEVELOPER Body Mass Index 32.62 12/25/2021 9:05 AM SENIOR NET WEB DEVELOPER Plan of Treatment Health Maintenance Due Date [...] only and have not been reviewed by [facility] Radiology. There will be no report generated by a [facility] Radiologist. Narrative [facility] - 09/29/2024 10:13 AM CDT EXAMINATION: Images For Reference Purposes Only us David Collins MD IMG CT PROCEDURES Final Result [facility] from Last 3 Months Insurance MEDICARE RAILROAD T SENIOR SUPPLEMENT MEDICARE RAILROAD T SENIOR SUPPLEMENT MEDICARE RAILROAD [employer] SENIOR SUPPLEMENT Advance Directives For more information, please contact: [phone] * Full Code (Latest Code Status on File) Date Activated Date Inactivated Comments 09/14/2017 11:54 AM 09/14/2017 4:15 PM Care Teams Bailer Operators Supervisor Relationship Specialty Start Date End Date Prema Novak NP [address] [place] [address] PCP - General Nurse Practitioner 07/16/18 Ninfa Bernal MD PhD [address] [place] [address] Radiation Oncologist Radiation Oncology 09/18/18 Yaritza Soriano MD [address] [place] [address] Surgeon Surgical Oncology 09/18/18
--- OUTSIDE RECORDS SUMMARY | 2024-12-01 08:54 | XMS_ITS | Clinical Summary ---
Author Organization [facility] Address [address] [place] [address] Care Team Providers Care Director Of Logistics Name Role Phone Rayo Parker MD Primary Care Provider [phone] Source Comments [facility],non-owned Affiliates and Associated Physician Practices is amultiple site organization consisting of ambulatory clinics and hospital sitesin [place], [place], [place] and [place]. This disclosure is being madepursuant to the Care Everywhere program and may not contain all information available regarding this patient. Last updated 17.[facility] Allergies Active Allergy Reactions Criticality Noted Date [...] on file Legal Sex Female 4:34 PM BED MANAGER Gender Identity Not on file Sexual Orientation Not on file Last Filed Vital Signs Vital Sign Reading Time Taken Comments Blood Pressure - - Pulse - - Temperature - - Respiratory Rate - - Oxygen Saturation - - Inhaled Oxygen Concentration - - Weight 89.4 kg (197 lb) 04/20/2023 11:32 AM BED MANAGER Height 157.5 cm (5' 2) 04/20/2023 11:32 AM BED MANAGER Body Mass Index 36.03 04/20/2023 11:32 AM BED MANAGER Plan of Treatment Health Maintenance Due Date Last Done Comments BONE DENSITY TESTING 1940 MEDICARE AWV 12 MONTHS 1940 DTAP/TDAP/TD VACCINES (1 - Tdap) 1961 PNEUMOCOCCAL VACCINE 50+ (1 of 1 - PCV) 1992 ZOSTER VACCINE (1 of 2) 1992 Respiratory Syncytial Virus (RSV) Vaccine Pt: or over 60 yrs (1 - 1-dose 75+ series) 2017 DEPRESSION SCREENING 02/17/2024 04/20/2023 COVID-19 VACCINE ( season) 2024 11/15/2021, 08/05/2021, 01/13/2021, Additional history exists INFLUENZA VACCINE (#1) 2024 3, 11/05/2021, 10/16/2020, [...] Payer ( fective 2007-Present) Name:Shelly Gaston Member ID:[id number] Relation to Subscriber:Self Name:Shelly Gaston Subscriber ID:[id number] Payer ID:Not on file Group ID:Not on file Type:Medicare Address: [address] MEDICARE Care Teams Director Of Logistics Relationship Specialty Start Date End Date Rayo Parker MD [address] [address] PCP - General Medical Oncology 03/30/23
--- OUTSIDE RECORDS SUMMARY | 2024-12-01 08:54 | XMS_ITS | Clinical Summary ---
Author Organization [facility] Ta bryant Roni Address [address] [place] [address] Care Team Providers Care Bee Farmer Name Role Phone Prema Novak [facility] Primary Care Provider [phone] Allergies Active Allergy Reactions Criticality Noted Date [...] Encounters Date Type Department Care Team Description 11/30/2024 Orders Only [facility] Oncology and Hematology - [address] [address] Rayo Parker MD Malignant neoplasm of right breast in female, estrogen receptor positive, unspecified site of breast (CMS/HCC) (Primary Dx) 10/18/2024 External Device Data STL ABSTRACTION Provider, Abstract 10/11/2024 Orders Only [facility] Oncology and Hematology - [address] [place] [address] Rayo Parker MD 10/04/2024 External Device Data STL ABSTRACTION Provider, Abstract 09/21/2024 External Device Data STL ABSTRACTION Provider, Abstract 09/06/2024 Telephone [facility] Oncology and Hematology - [address] [place] [address] Rayo Parker MD Med Change Request [...] Comments Blood Pressure 117/81 03/22/2024 11:54 AM PROFESSOR OF GEOGRAPHY Pulse 70 03/22/2024 11:54 AM PROFESSOR OF GEOGRAPHY Temperature 36.2 C (97.2 F) 03/22/2024 11:54 AM PROFESSOR OF GEOGRAPHY Respiratory Rate 16 08/13/2023 1:59 PM CDT Oxygen Saturation 95% 03/22/2024 11:54 AM PROFESSOR OF GEOGRAPHY Inhaled Oxygen Concentration - - Weight 88.2 kg (194 lb 6.4 oz) 03/22/2024 11:54 AM PROFESSOR OF GEOGRAPHY Height 162.6 cm (5' 4) 09/04/2021 1:01 PM CDT Body Mass Index 33.37 09/04/2021 1:01 PM CDT Plan of Treatment Upcoming Encounters Date Type Department Care Team (Late st Contact Info) Description 12/05/2024 11:15 AM CDT Office Visit [facility] Oncology and Hematology - [address] [place] [address] Rayo Parker MD [address] [facility] [address] [place] [address] Health Maintenance Due Date Last Done Comments Traditional Medicare (ACO) A nnual Wellness Visit 1959 RSV VACCINE (60+ or ) (1 - 1-dose 75+ series) 2017 INFLUENZA VACCINE (#1) 2024 , 11/04/2021, 10/16/2020, Additional history exists COVID-19 Vaccine ( - 2024-2 6 season) 2024 11/15/2021, 08/05/2021, 01/13/2021, Additional history exists DTAP/TDAP/TD VACCINES (2 - T d or Tdap) 05/10/2025 05/11/2015 OSTEOPOROSIS SCREENING 02/10/2029 , 02/11/2024, 07/19/2019, Additional history exists COLORECTAL SCREENING Discontinued 09/14/2017, 09/15/19 18 Colorectal Cancer Screening Discontinued PNEUMOCOCCAL VACCINE 50+ YEARS Completed 0 11/03/2017, 11/02/2017, 10/24/2016, Additional history exists ZOSTER VACCINE Completed 02/19/2020, 09/16, 01/30/2012 FIT-DNA Q 3 years Discontinued FIT/FOBT Q 1 year Discontinued Flex Sig/CT Colonography Q 5 years Discontinued Procedures Procedure Name Priority Date/Time Associated Diagnosis Comments MAMMOGRAM REPORT Routine 10/10/2024 9:10 AM CDT from Last 3 Months Results * MAMMOGRAM REPORT (10/10/2024 9:10 AM CDT) Rayo Parker MD MAMMO ORDERABLES Final Result from Last 3 Months [place] [address] [facility] MEDICARE SUPP AESSI MEDICARE RAILROAD [facility] MEDICARE SUPP AESSI Care Teams Bee Farmer Relationship Specialty Start Date End Date Prema Novak FNP [address] [place] [phone] PCP - General Nurse Practitioner Family 09/25/20
--- OUTSIDE RECORDS SUMMARY | 2024-12-01 08:54 | XMS_ITS | Clinical Summary ---
Author Organization [facility] Address [address] [place] [address] Phone Care Team Providers Care Property Handler Name Role Phone Rayo Baez MD Unavailable [phone] Allergies Active Allergy Reactions Criticality Noted [...] on file Legal Sex Female 3:01 AM SLOT EDITOR Gender Identity Not on file Sexual Orientation [...] Comments Hepatitis C Virus (HCV) Screening 1940 Medicare Initial AWV [id number] 06/16/2008 Zoster Immunization (2 of 3) 03/26/2012 01/30/2012 Respiratory Syncytial Virus (RSV) Immunization (Adult) (1 - 1-dose 75+ series) 2017 Influenza Immunization (#1) 10/17/202410/2016, 10/24/2015, 11/27/2012 SARS-COV-2 Immunization ( - season) 2024 DTaP/Tdap/Td Immunization Discontinued 05/11/2015 Pneumococcal Immunization (5 [...] to complete this topic Insurance [employer] [facility] MEDICARE RAILROAD Care Teams Property Handler Relationship Specialty Start Date End Date Rayo Baez MD [address] [place] [address] 01/21/11
--- OUTSIDE RECORDS SUMMARY | 2024-12-01 08:54 | XMS_ITS ---
Author Organization [facility] Address [address] [place] [address] Care Team Providers Care Client Account Manager Name Role Phone Prema Novak NP Primary Care Provider [phone] Ninfa Bernal MD PhD Unavailable [phone] Yaritza Soriano MD Unavailable [phone] Active Problems Problem Noted Date Diagnosed Date Acquired unequal leg length 05/27/2024 Lumbar radiculopathy 05/27/2024 Osteoarthritis of left hip 05/24/2024 Secondary hypercoagulable state 09/25/2020 Encounter for follow-up exam ination after completed treatment for conditions other than malignant neoplasm 12/10/2018 Personal history of in-situ neoplasm of breast 1 Personal history of irradiation 12/10/2018 USP (current) use of s elective estrogen receptor modulators (serms) 12/10/2018 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 Cancer Staging:Clinical:Stage 0(cTis (DCIS), cN0, cM0) - Signed by Mynor Ann MD on 09/18/2018 Pathologic:Stage Unknown(pTis (DCIS), pNX, cM0, ER+, LA+, HER2: Unknown) - Signed by Mynor Ann MD on 09/18/2018 Overview (08/05/2018): Added automatically from request for surgery [id number] Current Treatment and Therapy Plans No current plan information found. Past Treatment and Therapy Plans No past plan information found. Radiation Treatments * Course C1 R BRS LA 2019 10/06/2018 - 10/29/2018 Treatment Period Energy Fraction Dose Fractions Total Dose Plans Planned RT BRST:1 10/08/2018 - 10/29/2018 266 14 / 3,724 RT BRST 10/06/2018 - 10/07/2018 266 2 / 4,256 Reference Points Delivered BROWN DPV 10/06/2018 - 10/29/2018 4,256
--- OUTSIDE RECORDS SUMMARY | 2024-12-01 08:54 | XMS_ITS | Encounter Summary ---
Author Organization [facility] Mingly [facility] Address [address] [place] [address] Care Team Providers Care Field Applications Specialist Name Role Phone Prema Novak [facility] Primary Care Provider [phone] Encounter Details Date Type Department Care Team (Late Contact Info) Description 11/30/2024 Orders Only [facility] Oncology and Hematology [facility] [address] [place] [address] Rayo Parker MD [facility] [employer] [address] [place] [address] Malignant neoplasm of right breast in female, estrogen receptor positive, unspecified site of breast (CMS/HCC) (Primary Dx) Social History Tobacco Use Types Packs/Day Years [...] Description 12/05/2024 11:15 AM CDT Office Visit [facility] Oncology and Hematology [address] [place] [address] Rayo Parker MD [address] [employer] [address] [place] [phone] Scheduled Orders Name Type Priority Associated Diagnoses Orde r Schedule CANCER ANTIGEN 15-3 Lab Routine Malignant neoplasm of right breast in female, estrogen receptor positive, unspecified site of breast (CMS/HCC) Expected: 11/30/2024, Expires: 11/30/2025 CBC WITH DIFFERENTIAL Lab Routine Malignant neoplasm of right breast in female, estrogen receptor positive, unspecified site of breast (CMS/HCC) Expected: 11/30/2024, Expires: 11/30/2025 COMPREHENSIVE METABOLIC PANEL Lab Routine Malignant neoplasm of right breast in female, estrogen receptor positive, unspecified site of breast (CMS/HCC) Expected: 11/30/2024, Expires: 11/30/2025 documented as of this encounter Visit Diagnoses Diagnosis Malignant neoplasm of right breast in female, estrogen receptor positive, unspecified site of breast (CMS/HCC)- Primary documented in this encounter Care Teams Field Applications Specialist Relationship Specialty Start Date End Date Prema Novak FNP [address] [place] [phone] PCP - General Nurse Practitioner Family 09/25/20 documented as of this encounter
[2024-12-01 09:31] LABS: Alanine Aminotransferase 13 U/L (6-35); Albumin Level 4.1 g/dL (3.5-5.1); Alkaline Phosphatase 53 U/L (38-126); Anion Gap 5 mmol/L (4-12); Aspartate Amino Transferase 27 U/L (14-36); Bilirubin,Total 0.6 mg/dL (0.2-1.3); Blood Urea Nitrogen 11 mg/dL (7-17); Calcium 9.1 mg/dL (8.4-10.2); Carbon Dioxide 27 mmol/L (22-30); Chloride 106 mmol/L (98-107); Estimated Glomerular Filt Rate > 60; Glucose 98 mg/dL (65-110); Potassium 4.8 mmol/L (3.4-5.0); Sodium 138 mmol/L (137-145); Total Protein 8.0 g/dL (6.3-8.2)
== END 2024-12-01 08:38 | disposition home or self-care (01) ==
LOC: ANHLAB 08:38
PROVIDERS: PCP Nurse Practitioner Family; Visit Provider Internal Medicine Hematology & Oncology
DX: C50.911 Malignant neoplasm of unspecified site of right female breast (principal); Z17.0 Estrogen receptor positive status [ER+]
CPT/HCPCS: 36415; 80053; 85025; 86300